=== PATIENT | male | born 1955 | race Hispanic/Latino ===

== ENCOUNTER 2017-09-11 16:49 | Inpatient (IN) | payer MEDICARE, MEDICAID ==
[2017-09-11 18:07] LABS: #Lymphocytes 1.6 thou/uL (1.20-3.40); #Monocytes 0.9 thou/uL (0.11-0.59); #Neutrophils 5.9 thou/uL (1.40-6.50); %Basophils 0.3 % (0.0-1.0); %Eosinophils 0.5 % (0.0-10.0); %Lymphocytes 18.6 % (21.0-51.0); %Neutrophils 69.7 % (42.0-75.0); Hemoglobin 11.3 g/dL (14.0-18.0); Mean Corpuscular HGB CONC 33.5 g/dL (32.0-36.0); Mean Corpuscular Hemoglobin 32.7 pg (27.0-31.0); Mean Corpuscular Volume 97.8 fl (80.0-94.0); Mean Platelet Volume 6.6 fL (7.4-10.4); Platelet Count 400 thou/uL (130-400); RBC Distribution Width 13.2 % (11.5-14.5); Red Blood Cell (RBC) Count 3.47 mill/uL (4.70-6.10); White Blood Cell (WBC) Count 8.5 thou/uL (4.8-10.8)
[2017-09-11 18:29] LABS: ALT (SGPT) 11 U/L (8-55); AST (SGOT) 14 U/L (5-34); Albumin 4.2 g/dL (3.5-5.0); Alkaline Phosphatase 106 U/L (40-150); Anion Gap 18 mmol/L (10-20); BUN (Urea Nitrogen) 59 mg/dL (8.4-25.7); Calc. Creatinine Clearance 0 mL/min (70-130); Calcium 10.1 mg/dL (7.8-10.44); Carbon Dioxide 22 mmol/L (22-29); Chloride 101 mmol/L (98-107); Estimated GFR-MDRD 12; Glucose 74 mg/dL (70-105); Potassium 4.4 mmol/L (3.5-5.1); Protein, Total 7.2 g/dL (6.0-8.3); Sodium 137 mmol/L (136-145)
[2017-09-11 18:34] LABS: Troponin I 0.024 ng/mL (< 0.028)
--- NOTE | 2017-09-11 20:19 | RAD ---
PORTABLE AP CHEST RADIOGRAPH: Date: 09-11-17 History: Patient recently diagnosed with the flu. Patient still feels sick and weak and has loss of a ppetite and congestion. Comparison: 03-13-17 FINDINGS: Most inferior aspect of each lateral costophrenic angle is excluded from view. The cardiac silhouette and pulmonary vasculature are within normal limits. Linear density at the left lung base may be rela sadaf to either minimal atelectasis or scarring. There is a mass like density in the medial left lung b ase. The prior CT examination on 05-17-17 demonstrated hiatal hernia in this location. Dorsal column s timulator leads overlie the thoracic spine. No interval change. IMPRESSION: 1. No acute cardiopulmonary process. 2. Minimal linear scarring versus atelectasis of the left lung base. 3. Hiatal hernia. POS: [facility]
[2017-09-11 21:09] LABS: CK (CPK) 153 U/L (30-200); Lipase 34 U/L (8-78)
[2017-09-11] MEDS ORDERED: Ondansetron HCl/PF 4 MG/2 ML Vial ONE (21:13)
--- NOTE | 2017-09-11 22:33 | CT ---
NONCONTRAST CT ABDOMEN AND PELVIS: Date: 09-11-17 Comparison: 05-17-17 History: Uremia and abdominal pain and vomiting. FINDINGS: Moderate sized hiatal hernia is partially visualized. There are linear parenchymal densities at the l xander bases which may be related to volume loss and/or scarring, incompletely evaluated on this exam. R e-demonstration of cystic hypodensity at the anterior aspect of the liver. No evidence of adrenal mas s. Re-demonstration of nonobstructive bilateral renal calculi. Urinary bladder is mildly distended. T here is a mural based hypodensity which could be on the basis of intramural fat deposition from prior inflammatory etiology. Stable malrotation of the kidneys bilaterally, incompletely assessed. Partial ly exophytic density of the posterior aspect of the right kidney is present, grossly stable. There ar e chronic diverticula. [place] fat containing rings are seen bilaterally. There is diffuse vascula r disease and osseous degenerative change. IMPRESSION: Nonobstructive bilateral nephrolithiasis. Evaluation otherwise limited on the basis of noncontrast kye simpson. POS: [facility]
[2017-09-12] MEDS ORDERED: Ondansetron ODT 4 MG TAB SL PRN (00:36)
[2017-09-12] MEDS ORDERED: Sodium Chloride 0.9% 1,000 ML IV SCH ×2 (00:36→09:15)
[2017-09-12] MEDS ORDERED: Acetaminophen 325 MG TAB PO PRN (00:36)
[2017-09-12] MEDS: Ondansetron HCl/PF 4 MG/2 ML Vial IVP PRN ×2 (01:10→09:43)
[2017-09-12 02:13] VITALS: BMI 35.1
[2017-09-12] MEDS ORDERED: FLU VACC QS2017-18 36 mo. & older 0.5 ML SYRINGE IM ONE (09:00)
[2017-09-12] MEDS ORDERED: hydrALAZINE 20 MG/ML VIAL SLOW IVP PRN (09:09)
[2017-09-12 09:36] LABS: Hemoglobin A1c 5.1 % (4.0-6.0)
--- NOTE | 2017-09-12 10:54 | ULT ---
RENAL ULTRASOUND: DATE: 09/12/17. HISTORY: Renal failure. TECHNIQUE: Multiplanar, phelps scale, sonographic imaging of the kidneys and urinary bladder obtained. FINDINGS: The right kidney measures 14.7 x 6.5 x 6.1 cm. Cortical thickness is 1.8 cm. No renal mass, hydrone phrosis, or renal stone noted on the right. The left kidney measures 12.1 x 7.3 x 6.0 cm, with a cortical thickness of 1.6 cm. There is an echog enic focus within the renal hilum on the left measuring up to approximately 9 mm, which may represent an intrarenal stone. No left renal mass or hydronephrosis. The urinary bladder appears grossly unr emarkable. IMPRESSION: No hydronephrosis seen on either side. Intrarenal stone noted on the left. Of note, CT performed demonstrates bilateral nephrolithiasis, underestimated on ultrasound. POS: [facility]
--- NOTE | 2017-09-12 11:08 | HP ---
CHIEF COMPLAINT: Nausea, vomiting, and weakness. HISTORY OF PRESENT ILLNESS: This is a 61-year-old pleasant gentleman who was discharged recently fro m our hospital, again comes in with nausea, vomiting, and weakness, which has worsened in the past da y. He says that he has not been able to eat for the past 4 days because of the nausea and vomiting a nd that is why he felt weak, his oral intake for food and liquids have been decreased as well. He al so reports decreased urine output and is having difficulty keeping fluids and food down. The patient admits to take Aleve and Mobic for his pain management. The patient comes in to the hospital for al l these reasons and initial evaluation showed a creatinine of 4.94. At the time of his discharge last time it was normal. The patient has been admitted for further evaluation and treatment of the naus ea, vomiting, and weakness and the high creatinine. PAST MEDICAL HISTORY: Significant for history of orthostatic hypotension, status post mechanical fal l, history of acute kidney injury, status post volume depletion, right proximal fibular fracture seco ndary to fall, obstructive sleep apnea, coronary artery disease, status post percutaneous coronary ar mika stent, morbid obesity, chronic pain syndrome with reflex sympathetic dystrophy, peripheral neuro kateryna, hyperlipidemia. PAST SURGICAL HISTORY: Significant for back surgery, kidney stone removal, status post right hip rep lacement. MEDICATIONS: Please see MAR. ALLERGIES: CODEINE, GABAPENTIN and IODINE. FAMILY HISTORY: Positive for coronary artery disease and diabetes. SOCIAL HISTORY: Resides in [place], [place]. No alcohol, tobacco or illicit drug use. Ambulates with a rolling walker, multiple falls per patient and . REVIEW OF SYSTEMS: Significant for nausea, vomiting, weakness, otherwise no fever, no chills, no hea dache, no . No cough, no chest pain, diarrhea, dysuria or polyuria. No memory or mood changes noted. PHYSICAL EXAMINATION: VITAL SIGNS: Blood pressure is 127/54, afebrile, pulse is 68, respirations 16. GENERAL: Patient is lying in bed, no apparent distress. HEENT: Atraumatic, normocephalic. Pupils equally round, react to light. Extraocular movements inta ct. Mucous membranes moist. NECK: Supple. No JVD. CHEST: Breath sounds. There are no rales or rhonchi. HEART: S1, S2. No murmurs or gallops. ABDOMEN: Soft, obese. EXTREMITIES: No cyanosis, clubbing, edema. Distal pulses present. NEUROLOGIC: Alert, awake, oriented. No cranial deficits. No sensorimotor deficits. LABORATORY DATA: Potassium is 4.4, creatinine is 4.94. WBC count is 8.5, hemoglobin is 11. Chest x -ray negative. CT scan of the abdomen shows nonobstructing nephrolithiasis bilaterally. ASSESSMENT AND PLAN: 1. Acute renal failure secondary to poor oral intake of fluids and simultaneous use of Lasix, lisino pril, hydrochlorothiazide, Aleve and Advil. Will stop all these medications and hydrate the patient. We will consult Dr. Benjamin and follow his recommendations. Do ultrasound and check a urinalysis and urine electrolytes. 2. Weakness, possibly secondary to side effect of Lyrica and poor oral intake and the uremia. We wi ll optimize the dose of the Lyrica. We will follow with Dr. Benjamin for further treatment of the uremia . 3. Nausea and vomiting, possibly secondary to gastritis. We will treat the patient with IV Protonix and transitioned to p.o. Protonix and give symptomatic treatment for the nausea. 4. History of coronary artery disease, status post stent, stable. 5. History of multiple falls secondary to orthostatic hypotension. We will monitor the patient's bl ood pressure this hospital stay. 6. Obstructive sleep apnea, stable. 7. Pain management. I will add fentanyl patch and Tylenol combination for the pain control. We duy l stop the Aleve and will advise him to go to pain management as an outpatient. 8. Morbid obesity. Advised him to lose weight. 9. Chronic pain syndrome with reflex sympathetic dystrophy. Continue to monitor the patient. 10. Peripheral neuropathy, stable. 11. Hyperlipidemia, stable. 12. Javier harding and SCDS for deep venous thrombosis prophylaxis. I will work with the bus info consultant on further caring for the patient.
[2017-09-12] MEDS: Sodium Chloride 0.9% 1,000 ML IV SCH (12:00)
[2017-09-12 12:15] LABS: Anion Gap 17 mmol/L (10-20); BUN (Urea Nitrogen) 51 mg/dL (8.4-25.7); Calc. Creatinine Clearance 36 mL/min (70-130); Calcium 9.5 mg/dL (7.8-10.44); Carbon Dioxide 23 mmol/L (22-29); Chloride 106 mmol/L (98-107); Estimated GFR-MDRD 18; Glucose 68 mg/dL (70-105); Sodium 142 mmol/L (136-145)
[2017-09-12] MEDS: Promethazine HCl 25 MG SUPP PR PRN ×2 (17:31→23:37)
[2017-09-12 17:49] LABS: Bilirubin Negative (Negative); Blood, Urine Negative (Negative); Clarity CLOUDY (Clear); Glucose, Urine (Dipstick) Negative (Negative); Leukocyte Moderate (Negative); Nitrite Negative (Negative); Protein, Urine (Dipstick) Negative (Neg-Trace); Specific Gravity, Urine 1.019 (1.002-1.036); Urobilinogen 0.2 mg/dL (0.2-1.0)
[2017-09-12 17:50] LABS: Bacteria/HPF 3+ HPF (None Seen); Hyaline Casts/LPF 0-3 HYALINE CAST LPF (0-3 Hyaline); Pathc Cast-AUWi Flag 0.13 (0-2.49); RBC/HPF 0-3 HPF (0-3); Squamous Epithelial None Seen HPF (0-3)
[2017-09-12 18:09] LABS: Creatinine, Urine 99.24 mg/dL (63-166); Potassium, Urine 16.3 mmol/L
[2017-09-12] MEDS: Metoprolol Tartrate 25 MG TAB PO SCH (20:24)
[2017-09-12] MEDS: Docusate 100 MG CAP PO SCH (20:24)
[2017-09-12] MEDS: Fentanyl 100 MCG/2 ML VIAL SLOW IVP PRN (23:37)
--- NOTE | 2017-09-12 23:49 | CON ---
DATE OF CONSULTATION: 09/12/2017 NEPHROLOGY CONSULTATION REASON FOR CONSULTATION: Elevated creatinine. HISTORY OF PRESENT ILLNESS: This is a 61-year-old gentleman with a past medical history significant for hypertension, diabetes mellitus, and history of coronary artery disease, who presented to the [facility] with history of nausea, vomiting, and weakness. The patient intake. The patient's creat inine peaked to 4.94. His last creatinine also was within normal limits, but . The patient den ies headache, numbness, tingling or weakness. Denies any nausea, vomiting or chest pain. PAST MEDICAL HISTORY: Significant for hypertension, mechanical fall, acute kidney injury, right prox imal femur fracture, orthostatic hypotension, coronary artery disease, stent, morbid obesity, periphe ral neuropathy, hyperlipidemia, history of hip replacement, knee surgery. CURRENT MEDICATIONS: List reviewed. ALLERGIES: Reviewed. FAMILY HISTORY: Negative for ESRD. SOCIAL HISTORY: No alcohol or drug use. REVIEW OF SYSTEMS: A 15-point review of systems was performed and negative except positives noted ab ove. GENERAL: Weakness. HEAD: Headache. NECK: No swelling or lumps. NOSE: No epistaxis or discharge. EYES: No diplopia or pain. RESPIRATORY: Dyspnea. CARDIOVASCULAR: Chest pain. GASTROINTESTINAL: Nausea. 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 MUSCULOSKELETAL: No joint pain. NEUROPSYCHIATIC SYSTEMS: No suicidal ideation. No ideation. SKIN: Denies any rash or ulcer. CONSTITUTIONAL: No fever or chills. PHYSICAL EXAMINATION: GENERAL: The patient is awake, alert. VITAL SIGNS: Afebrile, pulse 64, breathing at 16, blood pressure 118/71. GENERAL APPEARANCE AND MENTAL STATUS: Fair. HEAD/NECK: Normocephalic. Atraumatic. EYES: EOMI. No deformity. EARS: Clear. No ulcers. NOSE: Intact. No lesions. MOUTH: Clear. No discharge. THROAT: Clear. No exudate. LUNGS: Clear. No crackles. CARDIAC: S1, S2. No rub. ABDOMEN: Benign. BS+. GENITALIA/RECTUM: Cordon absent. BACK/EXTREMITIES: Edema 0+ Ulcer- NEUROLOGICAL: Alert and motor intact. SKIN: Rash- Bruise- LYMPHATICS: Edema- Ulcer- LABORATORY: Show creatinine was 4.9. ASSESSMENT AND RECOMMENDATIONS: 1. Acute kidney injury with chronic kidney disease, most likely due to dehydration. Continue hydrat ion. 2. Anemia, stable. 3. Medications based on glomerular filtration rate are appropriate. I would also order renal imagin g to look for renal size, shape, and symmetry, no urgent indication for dialysis.
[2017-09-13 04:48] LABS: #Eosinphils 0.1 thou/uL (0.0-0.7); #Lymphocytes 2.3 thou/uL (1.20-3.40); #Monocytes 1.1 thou/uL (0.11-0.59); #Neutrophils 5.1 thou/uL (1.40-6.50); %Basophils 0.3 % (0.0-1.0); %Eosinophils 1.1 % (0.0-10.0); %Lymphocytes 26.4 % (21.0-51.0); %Monocytes 12.3 % (0.0-10.0); Hemoglobin 12.3 g/dL (14.0-18.0); Mean Corpuscular HGB CONC 32.7 g/dL (32.0-36.0); Mean Corpuscular Hemoglobin 31.8 pg (27.0-31.0); Mean Corpuscular Volume 97.5 fl (80.0-94.0); Mean Platelet Volume 6.6 fL (7.4-10.4); Platelet Count 399 thou/uL (130-400); Red Blood Cell (RBC) Count 3.85 mill/uL (4.70-6.10); White Blood Cell (WBC) Count 8.6 thou/uL (4.8-10.8)
[2017-09-13] MEDS: Fentanyl 100 MCG/2 ML VIAL SLOW IVP PRN ×2 (05:02→11:19)
[2017-09-13 05:36] LABS: Albumin 4.2 g/dL (3.5-5.0); Anion Gap 18 mmol/L (10-20); BUN (Urea Nitrogen) 37 mg/dL (8.4-25.7); BUN/Creatinine Ratio 17.96; Calc. Creatinine Clearance 61 mL/min (70-130); Calcium 9.9 mg/dL (7.8-10.44); Carbon Dioxide 21 mmol/L (22-29); Chloride 109 mmol/L (98-107); Estimated GFR-MDRD 33; Glucose 87 mg/dL (70-105); Phosphorus 3.1 mg/dL (2.3-4.7); Potassium 4.2 mmol/L (3.5-5.1); Sodium 144 mmol/L (136-145)
[2017-09-13] MEDS: Modafinil 100 MG TAB PO SCH (09:04)
[2017-09-13] MEDS: Metoprolol Tartrate 25 MG TAB PO SCH ×2 (09:05→20:55)
[2017-09-13] MEDS: Pregabalin 25 MG CAP PO SCH (09:06)
[2017-09-13] MEDS: Clopidogrel Bisulfate 75 MG TAB PO SCH (09:06)
[2017-09-13] MEDS: Sodium Chloride 0.9% 1,000 ML IV SCH (09:08)
[2017-09-13] MEDS: Docusate 100 MG CAP PO SCH ×2 (09:08→20:54)
--- NOTE | 2017-09-13 11:34 | PRG ---
DATE OF SERVICE: 09/13/2017 SUBJECTIVE: This is a 61-year-old gentleman being seen for acute kidney injury with improving creati nine. The patient denies any nausea, vomiting, or chest pain. PHYSICAL EXAMINATION: GENERAL: Patient is awake, alert. VITAL SIGNS: Afebrile, pulse 61, breathing at 16, blood pressure 132/71. OBJECTIVE: See above. Awake, alert, in no acute distress. GENERAL APPEARANCE AND MENTAL STATUS: Fair. HEAD/NECK: Normocephalic. Atraumatic. EYES: EOMI. No deformity. EARS: Clear. No ulcers. NOSE: Intact. No lesions. MOUTH: Clear. No discharge. THROAT: Clear. No exudate. LUNGS: Clear. No crackles. CARDIAC: S1, S2. No rub. ABDOMEN: Benign. BS+. GENITALIA/RECTUM: Cordon absent. BACK/EXTREMITIES: Edema 0+ Ulcer- NEUROLOGICAL: Alert and motor intact. SKIN: Rash- Bruise- LYMPHATICS: Edema- Ulcer- LABORATORY: Hemoglobin 12.5. Creatinine 2.06, bicarbonate 20. ASSESSMENT AND RECOMMENDATIONS: 1. Acute kidney injury, improved. 2. Hypertension, stable. 3. Anemia, stable. 4. Bilateral nephrolithiasis with very elevated uric acid. I would recommend adequate hydration. 5. Hypouricemia, would recommend starting Allopurinol 100 mg daily. 6. Kidney stones. We will order a 24-hour urine calcium.
--- NOTE | 2017-09-13 14:20 | PDOC.PN ---
- Subjective Encounter Start Date: 09/13/17 Encounter Start Time: 12:20 -: old records requested/rev Pt seen and examined, chart reviewed in its entirety, this is my first visit with this patient. Pt admitted for ARF, abd/flank pain, N/V. followed by renal, case discussed with Dr Benjamin face to face. Pt had CT with bilateral nephrolithisasis, but no hydro, rneal u/s demonstrated left infrarenal stone, no hydro. pt feel sbetter today after rehydration. admits to chronic pain, increasd naproxen usage and intractable n/V. suspect NSAIDS and dehydration contributed to CARON. Cr down to 2.08 today. Uric acid elevated, pt denes every having a gout attack or tophus. Admits to neck muscle spasm, Chronic BLE pain, kept asking to continue fentanyl. 10 point rOS performed and neg for all systems except as above - Objective Resuscitation Status: FULL MAR Reviewed: Yes Vital Signs & Weight: Vital Signs (12 hours) Temp Pulse Resp BP Pulse Ox 09/13/17 08:00 98.3 F 61 20 136/71 98 Weight Admit Weight 251 lb 14.4 oz Weight 248 lb 9.6 oz I&O: 09/12/17 09/13/17 09/14/17 06:59 06:59 06:59 Intake Total 455 Output Total 250 Balance 205 Result Diagrams: 09/13/17 04:34 09/13/17 04:34 Radiology Reviewed by me: Yes EKG Reviewed by me: Yes Phys Exam - Physical Examination Constitutional: NAD HEENT: PERRLA, moist MMs, sclera anicteric, oral pharynx no lesions Neck: no nodes, no JVD, supple, full ROM neck muscles,, paraspinous, tense and tender Respiratory: no wheezing, no rales, no rhonchi, clear to auscultation bilateral Cardiovascular: RRR, no significant murmur, no rub Gastrointestinal: soft, non-tender, no distention, positive bowel sounds Musculoskeletal: no edema, pulses present Neurological: non-focal, normal sensation, moves all 4 limbs Lymphatic: no nodes Psychiatric: normal affect, A&O x 3 Skin: no rash, normal turgor, cap refill <2 seconds Dx/Plan (1) Cervical paraspinal muscle spasm Code(s): M62.838 - OTHER MUSCLE SPASM Status: Acute Comment: will add in Zanaflex (2) Peripheral neuropathy Code(s): G62.9 - POLYNEUROPATHY, UNSPECIFIED Status: Chronic Qualifiers: Peripheral neuropathy type: polyneuropathy, unspecified Qualified Code(s): G62.9 - Polyneuropathy, unspecified Comment: prn pain meds, lyrica restarted (3) Hyperuricemia without signs inflammatory arthritis/tophaceous disease Code(s): E79.0 - HYPERURICEMIA W/O SIGNS OF INFLAM ARTHRIT AND TOPHACEOUS DIS Status: Acute Comment: over 12.0 for alst 2 days, no history of acute gout (4) Acute kidney failure Status: Acute Qualifiers: Acute renal failure type: with acute tubular necrosis Qualified Code(s): N17.0 - Acute kidney failure with tubular necrosis Comment: Resolved with hydration, saline lock IVF's, avoid nephrotoxic meds and contrast media, repeat creatinine in am (5) Dehydration Code(s): E86.0 - DEHYDRATION Status: Resolved Comment: Resolved, see #1 above (6) Asthma Code(s): J45.909 - UNSPECIFIED ASTHMA, UNCOMPLICATED Status: Chronic Qualifiers: Asthma severity: unspecified severity Asthma persistence: unspecified Asthma complication type: unspecified Qualified Code(s): J45.909 - Unspecified asthma, uncomplicated (7) CAD (coronary artery disease) Code(s): I25.10 - ATHSCL HEART DISEASE OF [place] CORONARY ARTERY W/O ANG PCTRS Status: Chronic Qualifiers: Coronary Disease-Associated Artery/Lesion type: [place] artery [place] vs. transplanted heart: [place] heart Associated angina: without angina Qualified Code(s): I25.10 - Atherosclerotic heart disease of [place] coronary artery without angina pectoris (8) Diverticulosis of colon Code(s): K57.30 - DVRTCLOS OF LG INT W/O PERFORATION OR ABSCESS W/O BLEEDING Status: Chronic Qualifiers: Diverticulosis bleeding: diverticulosis without bleeding Qualified Code(s) : K57.30 - Diverticulosis of large intestine without perforation or abscess without bleeding (9) GERD (gastroesophageal reflux disease) Code(s): K21.9 - GASTRO-ESOPHAGEAL REFLUX DISEASE WITHOUT ESOPHAGITIS Status: Chronic Qualifiers: Esophagitis presence: without esophagitis Qualified Code(s): K21.9 - Gastro -esophageal reflux disease without esophagitis (10) Hiatal hernia Code(s): K44.9 - DIAPHRAGMATIC HERNIA WITHOUT OBSTRUCTION OR GANGRENE Status: Chronic - Plan cont current plan of care, continue antibiotics, PT/OT, out of bed/ambulate * .
[2017-09-13] MEDS ORDERED: Tamsulosin HCl 0.4 MG CAP PO SCH ×2 (14:45→21:00)
[2017-09-13] MEDS: HYDROcodone/Acetaminophen 5/325 mg Tablet PO PRN ×2 (15:45→20:57)
[2017-09-13] MEDS ORDERED: Mometasone Furoate 120 PUFF 220 MCG INH SCH (18:30)
[2017-09-13] MEDS ORDERED: Pantoprazole 40 MG VIAL IVP SCH (21:00)
[2017-09-14] MEDS: Sodium Chloride 0.9% 1,000 ML IV SCH (04:14)
[2017-09-14 05:08] LABS: #Eosinphils 0.2 thou/uL (0.0-0.7); #Lymphocytes 1.7 thou/uL (1.20-3.40); #Monocytes 0.7 thou/uL (0.11-0.59); #Neutrophils 3.8 thou/uL (1.40-6.50); %Basophils 0.1 % (0.0-1.0); %Eosinophils 2.6 % (0.0-10.0); %Lymphocytes 27.3 % (21.0-51.0); %Monocytes 10.6 % (0.0-10.0); %Neutrophils 59.5 % (42.0-75.0); Hemoglobin 11.2 g/dL (14.0-18.0); Mean Corpuscular HGB CONC 32.6 g/dL (32.0-36.0); Mean Corpuscular Hemoglobin 32.1 pg (27.0-31.0); Mean Corpuscular Volume 98.4 fl (80.0-94.0); Mean Platelet Volume 7.4 fL (7.4-10.4); Platelet Count 385 thou/uL (130-400); RBC Distribution Width 13.1 % (11.5-14.5); White Blood Cell (WBC) Count 6.4 thou/uL (4.8-10.8)
[2017-09-14 05:22] LABS: Anion Gap 13 mmol/L (10-20); BUN (Urea Nitrogen) 21 mg/dL (8.4-25.7); Calc. Creatinine Clearance 114 mL/min (70-130); Calcium 9.4 mg/dL (7.8-10.44); Carbon Dioxide 23 mmol/L (22-29); Chloride 108 mmol/L (98-107); Estimated GFR-MDRD 68; Glucose 88 mg/dL (70-105); Magnesium 1.8 mg/dL (1.6-2.6); Sodium 140 mmol/L (136-145); Uric Acid 7.5 mg/dL (3.5-7.2)
[2017-09-14] MEDS: HYDROcodone/Acetaminophen 5/325 mg Tablet PO PRN ×2 (05:43→12:54)
[2017-09-14] MEDS ORDERED: Allopurinol 100 MG TAB PO SCH (09:00)
[2017-09-14] MEDS: Docusate 100 MG CAP PO SCH (09:36)
[2017-09-14] MEDS: Pregabalin 25 MG CAP PO SCH (09:37)
[2017-09-14] MEDS: Modafinil 100 MG TAB PO SCH (09:39)
[2017-09-14] MEDS: Metoprolol Tartrate 25 MG TAB PO SCH (09:40)
[2017-09-14] MEDS: Clopidogrel Bisulfate 75 MG TAB PO SCH (09:40)
[2017-09-14 12:09] VITALS: BP 114/65; TEMP 97.7
--- NOTE | 2017-09-14 12:13 | DIS ---
DATE OF ADMISSION: 09/12/2017 DATE OF DISCHARGE: 09/14/2017 PRIMARY CARE PHYSICIAN: Listed as Dr. Lyndon Shaver. DISCHARGE DIAGNOSES: 1. Hyperuricemia. 2. Acute kidney injury on chronic kidney disease, likely stage 3 chronic kidney disease. 3. Cervical paraspinal muscle spasms. 4. Chronic peripheral neuropathy. 5. Dehydration. 6. Asthma, uncomplicated, chronic and intermittent. 7. Coronary artery disease, without angina. 8. Diverticulosis without abscess or bleeding. 9. Gastroesophageal reflux disease. 10. History of hiatal hernia. CONSULTATION: Dr. Shamar Benjamin with Nephrology, 09/12/2017. PROCEDURES: None. HISTORY AND PHYSICAL/HOSPITAL COURSE: Mr. Shepherd is a pleasant 61-year-old male with the above history who presented to the emergency department on 09/11/2017 p.m. for evaluation of tejinder sea, vomiting, and weakness. He had been recently here for hospital stay and discharged. He came ba ck to the emergency department with nausea, vomiting, and weakness that worsened over the last day. He said, he has not been able to eat for about 4 days prior to presentation, because of nausea and vo miting and felt weak. He has been taking increased Aleve and Mobic for pain management of his peripheral neuropathy. Evaluation showed a creatinine of 4.94 and has been subsequently normal in the previous hospital stay . We were consulted for admission for dehydration, acute renal failure. The patient was seen and examined by Dr. Montiel. Nephrotoxic medicines were held and the patie nt was hydrated. Dr. Benjamin was consulted. A renal ultrasound and urinalysis and urine electrolytes w ere ordered. He was continued on p.o. Protonix after a dose of IV in the emergency department and or thostatic vital signs were ordered. Overnight, 09/12 to 09/13, the patient improved. I took over th e case. He was feeling better and creatinine was improved. Dr. Benjamin felt this was prerenal azotemia on top of acute nephrotoxicity of medications. A CT showed bilateral nephrolithiasis without hydron ephrosis and renal ultrasound showed along the left intrarenal stone. After the discussion, we decid ed to go ahead and start him on allopurinol and Flomax. His tramadol was stopped. He was changed ov er to hydrocodone and for pain control, we started on low dose Lyrica 25 mg a day. By 09/14/2017, the patient was feeling much better. His creatinine was down to 1.10 again with basel ine had been 0.7-0.9. Electrolytes remained otherwise normal. Uric acid down from 12.4-7.5 and 24-h our urine collection was completed at the time of discharge at 2:00 p.m. and was awaiting evaluation. Patient was stable for discharge with outpatient followup. On physical exam, the patient was seen and examined on the day of discharge. Discharge plan and disp osition was discussed with the patient [id number] at the bedside. DISCHARGE MEDICATIONS: 1. Albuterol sulfate MDI 2 puffs inhaled every 4 hours as needed. 2. Allopurinol 100 mg p.o. daily, prescription for 30 days with 2 refills sent. 3. Aspirin 325 mg daily. 4. Lipitor 40 mg p.o. at bedtime. 5. Vitamin D3 5000 units p.o. daily. 6. Citalopram 40 mg daily. 7. Plavix 75 mg daily. 8. Fluticasone 50 mcg inhaled daily, (Flovent Diskus). 9. Isosorbide mononitrate 60 mg p.o. daily. 10. Metoprolol tartrate 12.5 mg p.o. b.i.d. 11. Modafinil 200 mg p.o. daily. 12. Dicyclomine 20 mg p.o. q.i.d. 13. Flaxseed oil 1000 mg p.o. daily. 14. Lasix 40 mg daily to be held. 15. Hydrocodone/acetaminophen 5/325 one p.o. q.4 hours, prescription for 30 tablets, no refills sent . 16. Iron (Ferrex 150 Forte) one cap p.o. daily. 17. Singulair 10 mg daily to resume. 18. Naproxen discontinued. 19. Bethel 3 one capsule daily 20. Omeprazole 20 mg daily. 21. Zofran 8 mg p.o. q.6 hours p.r.n. nausea and vomiting, to continue. 22. Potassium chloride 20 mEq daily. 23. Lyrica 25 mg p.o. daily, prescription for 30 tablets with 2 refills sent. 24. Ranexa 1000 mg p.o. b.i.d. to resume. 25. Ropinirole 4 mg p.o. q.p.m. to resume. 26. Flomax 0.4 mg p.o. at bedtime, prescription for 30 tabs with 2 refills sent. DISCHARGE DIET: Renal, heart healthy, diabetic diet. DISCHARGE ACTIVITY: Per cardiopulmonary limits. FOLLOWUP APPOINTMENTS: 1. Primary care physician, Dr. Shaver in a week. 2. Dr. Benjamin with Nephrology, per his clinic schedule. DISCHARGE CONDITION: Stable. DISPOSITION: To be discharged home via private vehicle.
--- NOTE | 2017-09-14 13:51 | PRG ---
DATE OF SERVICE: 09/14/2017 SUBJECTIVE: This is a 61-year-old gentleman being seen for acute kidney injury. The patient denies any nausea, vomiting, or chest pain. PHYSICAL EXAMINATION: GENERAL: Patient is awake, alert. VITAL SIGNS: Afebrile, pulse 67, breathing at 16, blood pressure 114/65. OBJECTIVE: See above. Awake, alert, in no acute distress. GENERAL APPEARANCE AND MENTAL STATUS: Fair. HEAD/NECK: Normocephalic. Atraumatic. EYES: EOMI. No deformity. EARS: Clear. No ulcers. NOSE: Intact. No lesions. MOUTH: Clear. No discharge. THROAT: Clear. No exudate. LUNGS: Clear. No crackles. CARDIAC: S1, S2. No rub. ABDOMEN: Benign. BS+. GENITALIA/RECTUM: Cordon absent. BACK/EXTREMITIES: Edema 0+ Ulcer- NEUROLOGICAL: Alert and motor intact. SKIN: Rash- Bruise- LYMPHATICS: Edema- Ulcer- LABORATORY: Hemoglobin 11.2, creatinine 1.1. RECOMMENDATIONS: 1. Acute kidney injury. 2. Hypertension, stable. 3. Hypouricemia, continue allopurinol. 4. Secondary hyperparathyroidism causing kidney stone, I would recommend Sensipar and follow up with Endocrinology. 5. Anemia, stable. 6. Medications based on GFR are appropriate. 24-hour urine calcium is pending.
== END 2017-09-14 15:09 | disposition home or self-care (01) | DRG 684 ==
LOC: ERS 16:49 → T4-B 09-12 00:35
PROVIDERS: ADMIT Family Medicine; ATTEND Family Medicine
DX: N17.9 Acute kidney failure, unspecified (principal); E66.01 Morbid (severe) obesity due to excess calories; G62.9 Polyneuropathy, unspecified; N18.3 Chronic kidney disease, stage 3 (moderate); M62.838 Other muscle spasm; E86.0 Dehydration; J45.909 Unspecified asthma, uncomplicated; K57.30 Diverticulosis of large intestine without perforation or abscess without bleeding; K21.9 Gastro-esophageal reflux disease without esophagitis; G47.33 Obstructive sleep apnea (adult) (pediatric); I25.10 Atherosclerotic heart disease of native coronary artery without angina pectoris; I12.9 Hypertensive chronic kidney disease with stage 1 through stage 4 chronic kidney disease, or unspecified chronic kidney disease; G89.4 Chronic pain syndrome; E78.5 Hyperlipidemia, unspecified; N20.0 Calculus of kidney; E79.0 Hyperuricemia without signs of inflammatory arthritis and tophaceous disease; J45.20 Mild intermittent asthma, uncomplicated; Z68.34 Body mass index [BMI] 34.0-34.9, adult; Z88.5 Allergy status to narcotic agent; Z88.8 Allergy status to other drugs, medicaments and biological substances; Z91.041 Radiographic dye allergy status; Z79.82 Long term (current) use of aspirin; Z79.899 Other long term (current) drug therapy; Z95.5 Presence of coronary angioplasty implant and graft; Z96.641 Presence of right artificial hip joint
CPT/HCPCS: 36415; 71045; 74176; 76770; 80048; 80053; 80069; 81001; 82306; 82340; 82553; 82570; 83036; 83605; 83690; 83735; 83880; 83970; 84133; 84156; 84300; 84484; 84550; 85025; 93005; 94664; 96374; A4216; C9113; J2405; J3010

== ENCOUNTER 2018-06-28 09:57 | Outpatient (CLI) | payer MEDICARE, MEDICAID ==
--- NOTE | 2018-06-28 12:01 | RAD ---
PA AND LATERAL VIEWS CHEST: Date: 06/28/18 HISTORY: Hypoxia. Dyspnea. FINDINGS/IMPRESSION: Comparison made with exam of 09/11/17. The heart size is borderline. Hiatal hernia is again noted. No lobar consolidation, pneumothoraces, f rank pulmonary edema, or pleural effusions are seen. There are degenerative changes in the spine. Bjorn celso column stimulator lead are seen in the thoracic spine. There is suggestion of a 9.0 mm nodule in the left lung base. Further evaluation with CT scan of the chest is recommended. CODE T. POS: [facility]
== END 2018-06-28 09:58 | disposition home or self-care (01) ==
LOC: BICRAD 09:57
PROVIDERS: ATTEND Internal Medicine
DX: R06.00 Dyspnea, unspecified (principal); R09.02 Hypoxemia; M47.899 Other spondylosis, site unspecified; K44.9 Diaphragmatic hernia without obstruction or gangrene
CPT/HCPCS: 71046

== ENCOUNTER 2018-07-09 08:34 | Outpatient (CLI) | payer MEDICARE, MEDICAID ==
--- NOTE | 2018-07-09 11:11 | CT ---
CHEST CT SCAN WITHOUT IV CONTRAST: HISTORY: Followup lung nodule. Followup hypoxia and dyspnea. There is no mediastinal mass or adenopathy. Extensive 3-vessel coronary artery calcific disease. Ri ght hemidiaphragm elevation with some pleural thickening and some pleural based parenchymal changes, evidence for subsegmental atelectasis or chronic change. In the left base, there are also some pleur al-based linear and nodular parenchymal changes. The nodular area on the prior plain film examinatio n of 06/28/2018 appears to be some pleural-based linear nodular parenchymal change rather than a discr ete pulmonary nodule. Moderate-sized hiatal hernia. Nonobstructing right renal calculus. Left lobe of the liver cyst. IMPRESSION: Bibasilar minimal pleural thickening and pleural-based parenchymal changes with some minimal nodulari ty. I feel that this accounts for the nodular density seen on the prior plain film examination and i s no discrete pulmonary nodule. Moderate-sized hiatal hernia. Extensive 3-vessel coronary artery ca lcific disease. Small right renal calculus. Depending upon concern, a followup CT scan in 2-3 month s to document clearing or stability should be considered. POS: [facility]
== END 2018-07-09 08:35 | disposition home or self-care (01) ==
LOC: CT 08:34
PROVIDERS: ATTEND Internal Medicine
DX: R91.8 Other nonspecific abnormal finding of lung field (principal); J92.9 Pleural plaque without asbestos; I25.10 Atherosclerotic heart disease of native coronary artery without angina pectoris; N20.0 Calculus of kidney; K44.9 Diaphragmatic hernia without obstruction or gangrene
CPT/HCPCS: 71250

== ENCOUNTER 2019-01-25 07:39 | Observation (INO) | payer MEDICARE, MEDICAID ==
[2019-01-25] MEDS ORDERED: Pantoprazole 40 MG VIAL ONE (07:58)
[2019-01-25 08:39] LABS: #Eosinphils 0.2 thou/uL (0.0-0.7); #Monocytes 0.4 thou/uL (0.11-0.59); #Neutrophils 4.2 thou/uL (1.40-6.50); %Basophils 0.1 % (0.0-1.0); %Eosinophils 2.7 % (0.0-10.0); %Lymphocytes 17.5 % (21.0-51.0); %Monocytes 7.2 % (0.0-10.0); %Neutrophils 72.5 % (42.0-75.0); Hemoglobin 10.9 g/dL (14.0-18.0); Mean Corpuscular HGB CONC 35.2 g/dL (32.0-36.0); Mean Corpuscular Hemoglobin 34.8 pg (27.0-31.0); Mean Corpuscular Volume 98.9 fL (78.0-98.0); Mean Platelet Volume 6.9 fL (7.4-10.4); Platelet Count 276 thou/uL (130-400); RBC Distribution Width 12.3 % (11.5-14.5); Red Blood Cell (RBC) Count 3.12 mill/uL (4.70-6.10); White Blood Cell (WBC) Count 5.8 thou/uL (4.8-10.8)
[2019-01-25 08:47] LABS: Bilirubin Negative (Negative); Blood, Urine Negative (Negative); Clarity CLEAR (Clear); Glucose, Urine (Dipstick) Negative (Negative); Leukocyte Negative (Negative); Nitrite Negative (Negative); Protein, Urine (Dipstick) Negative (Neg-Trace); Specific Gravity, Urine 1.008 (1.002-1.036); Urobilinogen 0.2 mg/dL (0.2-1.0); pH, Urine 6.5 (5.0-9.0)
[2019-01-25 08:48] LABS: PTT 31.8 SEC (22.9-36.1); Prothrombin Time 13.5 SEC (12.0-14.7)
[2019-01-25 09:17] LABS: ALT (SGPT) 22 U/L (8-55); AST (SGOT) 16 U/L (5-34); Albumin 3.7 g/dL (3.4-4.8); Alkaline Phosphatase 94 U/L (40-150); Anion Gap 11 mmol/L (10-20); BUN (Urea Nitrogen) 15 mg/dL (8.4-25.7); Bilirubin, Total 0.6 mg/dL (0.2-1.2); CK (CPK) 109 U/L (30-200); Calc. Creatinine Clearance 0 mL/min (70-130); Calcium 9.1 mg/dL (7.8-10.44); Carbon Dioxide 27 mmol/L (23-31); Chloride 103 mmol/L (98-107); Estimated GFR-MDRD Greater than 90; Glucose 89 mg/dL (80-115); Lipase 12 U/L (8-78); Potassium 4.3 mmol/L (3.5-5.1); Protein, Total 5.7 g/dL (5.8-8.1); Sodium 137 mmol/L (136-145)
[2019-01-25] MEDS ORDERED: Morphine 4 MG/ML VIAL ONE (09:38)
--- NOTE | 2019-01-25 10:44 | HP ---
PRIMARY CARE PHYSICIAN: Dr. Lyndon Shaver. REASON FOR ADMISSION: Rectal bleed. HISTORY OF PRESENT ILLNESS: A 63-year-old male, who has multiple medical problems, who presented to emergency room today with complaint of lower GI bleed. The patient reports that on Monday, he was noticing right-sided lower abdominal pain, and he had bowel movement, which was mixed with blood. Subsequently, on next day, he was having pain radiating to left side and entire lower abdominal was hurting. At the same time, the patient was having several loose bowel movements, which were associated with bright red blood per rectum. Per the patient, he had 6 to 7 times of bowel movement on , as well as today, he had 6 to 7 times of bloody bowel movement. Initially on , he thought that may be related with whatever he ate, but he stopped eating sauce, and even after that, he was having bright red blood per rectum, and that is why he was alarmed and decided to come to emergency room for evaluation. The patient has chronic right knee infection, and that is why he is taking amoxicillin, but he never had diarrhea before. He denies any weight loss. He denies any rectal tenesmus. He denies any fever or chills. He denies any nausea or vomiting. He denies any abdominal distention. He was feeling bloated, but he denies any constipation. The patient reports that he had several endoscopies in past, and he was planned for upper and lower endoscopy next week. The patient also has hiatal hernia, and he has difficulty swallowing, and that is why he is planned for upper endoscopy. He denies any chest pain, palpitation, shortness of breath, orthopnea, PND, or syncopal episode. The patient reports that because of all this bleeding and diarrhea, he is feeling generalized weak. REVIEW OF SYSTEMS: CONSTITUTIONAL: Negative for weight loss or gain, ability to conduct usual activities. SKIN: Negative for rash, itching. EYES: Negative for double vision, pain. ENT/MOUTH: Negative for nose bleeding, neck stiffness, pain, tenderness. CARDIOVASCULAR: Negative for palpitations, dyspnea on exertion, orthopnea. RESPIRATORY: Negative for shortness of breath, wheezing, cough, hemoptysis, fever or night sweats. GASTROINTESTINAL: Negative for poor appetite, abdominal pain, heartburn, nausea, vomiting, constipation, or diarrhea. GENITOURINARY: Negative for urgency, frequency, dysuria, nocturia. MUSCULOSKELETAL: Negative for pain, swelling. NEUROLOGIC/PSYCHIATRIC: Negative for anxiety, depression. ALLERGY/IMMUNOLOGIC: Negative for skin rash, bleeding tendency. See my HPI for pertinent positives and negatives. All other review of systems reviewed and negative except as mentioned in HPI. PAST MEDICAL HISTORY: Morbid obesity, chronic pain syndrome from reflex sympathetic dystrophy, peripheral neuropathy, hypertension, dyslipidemia, coronary artery disease with history of stent placement, obstructive sleep apnea, history of diverticulitis, history of right hip nerve stimulator, history of nephrolithiasis, and history of TIA. PAST SURGICAL HISTORY: Right knee surgery, lumbar spine surgery, shoulder surgery, lithotripsy, and right hip stimulator placement. PAST PSYCHIATRIC HISTORY: Reviewed and negative. SOCIAL HISTORY: The patient is , lives at home. He denies any tobacco, alcohol, or illicit drug abuse. FAMILY HISTORY: Positive for coronary artery disease and diabetes among several family members. ALLERGIES: 1. CODEINE. 2. GABAPENTIN. 3. IODINE. CURRENT HOME MEDICATIONS: 1. Aspirin 325 mg p.o. daily. 2. Lipitor 40 mg p.o. daily. 3. Plavix 75 mg p.o. daily. 4. Lasix 40 mg daily. 5. Lyrica 150 mg twice daily. 6. Singulair 10 mg daily. 7. ProAir HFA 2 puffs q.6 hourly p.r.n. 8. Ranexa 1000 mg twice daily. 9. Ropinirole 4 mg before bedtime. 10. Metoprolol tartrate 12.5 mg twice daily. 11. Imdur 60 mg p.o. daily. 12. Potassium chloride 20 mEq p.o. daily. 13. Protonix 40 mg daily. 14. Lisinopril 10 mg daily. 15. Metolazone 5 mg 3 times a week. 16. Allopurinol 100 mg daily. 17. Amoxacillin 250 mg daily. 18. Flomax 0.4 mg p.o. daily. 19. Vitamin D with calcium 1 tablet daily. 20. Celexa 40 mg daily. 21. Ferrous sulfate 150 mg p.o. daily. EMERGENCY ROOM COURSE: The patient received IV fluid and Protonix. PHYSICAL EXAMINATION: VITAL SIGNS: Currently, blood pressure 140/48, pulse 56, respiratory rate 18, temperature 98.0, saturation 95% on room air. Weight 124 kg. GENERAL: The patient is currently alert and awake. No obvious acute distress. HEENT: Head, normocephalic and atraumatic. Eyes; pupils round and reactive to light. Extraocular muscle intact. ENT; oropharynx within normal limits. Moist mucous membranes. No oral lesion. No pharyngeal erythema. No exudate. NECK: Supple. No thyromegaly. No carotid bruit. No jugular venous distention LUNGS: Clear to auscultation without any rhonchi or rales. CARDIAC: S1 and S2, regular. No murmur. No gallop. No rub. ABDOMEN: Soft. Bowel sounds present. Lower abdominal discomfort noted. No peritoneal sign. No guarding. No rigidity. No rebound. BACK: Unremarkable. No CVA tenderness. EXTREMITIES: Upper extremities; passive movement of all joints is normal. Lower extremities; no edema. Good distal pulsation. SKIN: No skin rash. HEMATOLOGICAL: No lymphadenopathy. PSYCHIATRIC: Normal affect. NEUROLOGIC: Nonfocal examination. SIGNIFICANT LABORATORY DATA: CBC: WBC 5.8, hemoglobin 10.9, platelet 276. INR 1.0. BMP: Sodium 137, potassium 4.3, chloride 103, carbon dioxide 27, BUN 15, creatinine 0.74, glucose 89, calcium 9.1. LFT: AST 16, ALT 22, alkaline phosphatase 94, albumin 3.7, lipase 12. Troponin I less than 0.010. Urinalysis, normal. ASSESSMENT AND PLAN: 1. Lower gastrointestinal bleed. The patient has lower abdominal discomfort with several times of loose bowel movement with blood. I am clinically suspecting diverticular bleed. As the patient is on chronic amoxicillin therapy, Clostridium difficile needs to be excluded, but less likely given CBC is normal. The patient does have a drop in hemoglobin from 13 to 10, and he is not significantly symptomatic at this point, but he will need H and H monitoring. If his hemoglobin drops below 7, then he will need transfusion. At this point, I will keep him on clear liquid diet. We will consult intelligence agent for their evaluation with endoscopy if needed. Other possibilities like colorectal cancer, colon cancer, hemorrhoids are less likely based on clinical presentation. 2. Chronic dysphagia with hiatal hernia. The patient is planned for upper endoscopy, that can be done during this admission. The patient may need esophageal dilatation. 3. Morbid obesity. Dietary education given. Weight loss education given. 4. Asthma/chronic obstructive pulmonary disease. We will continue ProAir HFA 2 puffs q.6 hourly p.r.n., Flonase nasal spray daily. 5. Benign enlargement of prostate. We will continue Flomax 0.4 mg p.o. daily. 6. Coronary artery disease with history of stent. At this point, because of bleeding, we will hold on aspirin and Plavix therapy, but after procedure, if bleeding stops, then we will resume aspirin and Plavix. We will continue other medications including Lipitor, Imdur, metoprolol, and Ranexa. 7. Peripheral neuropathy. We will continue Lyrica as per home dosage. 8. Restless legs syndrome. We will continue ropinirole as per home dosage at bedtime. 9. Hiatal hernia. We will continue Protonix 40 mg p.o. daily. 10. Obstructive sleep apnea. The patient will continue his CPAP machine while in the hospital if needed. 11. Chronic low back pain. We will continue Celexa as per home dosage. 12. Gout. We will continue allopurinol 100 mg p.o. daily. 13. Deep venous thrombosis prophylaxis. SCD boots. No Lovenox because of gastrointestinal bleed. 14. Gastrointestinal prophylaxis. Protonix 40 mg p.o. daily. CODE STATUS: The patient is full code. The patient's is surrogate decision maker. DISPOSITION PLAN: Based on clinical course. Plan of care discussed with the patient and his at bedside in the emergency room. Job ID: [id number]
[2019-01-25] MEDS ORDERED: Bisacodyl 5 MG TAB PO PRN (10:49)
[2019-01-25] MEDS ORDERED: Zolpidem Tartrate 5 MG TAB PO PRN (10:49)
[2019-01-25] MEDS ORDERED: Ondansetron PF 4 MG/2 ML Vial IVP PRN (10:49)
[2019-01-25] MEDS ORDERED: Bisacodyl 10 MG SUPP PR PRN (10:49)
[2019-01-25] MEDS ORDERED: Acetaminophen 325 MG TAB PO PRN (10:49)
[2019-01-25] MEDS ORDERED: Ondansetron ODT 4 MG TAB PO PRN (10:49)
[2019-01-25] MEDS ORDERED: Calcium Carbonate 500 MG ChewTAB PO PRN (10:49)
[2019-01-25 11:50] VITALS: BMI 38.0
[2019-01-25 12:22] LABS: Hemoglobin 10.1 g/dL (14.0-18.0)
[2019-01-25] MEDS ORDERED: PROVENTIL INHALER 6.7 G (200 INHALATIONS) INH PRN (13:09)
[2019-01-25] MEDS ORDERED: Cyclobenzaprine 10 MG TAB PO PRN (13:09)
[2019-01-25] MEDS: Morphine 2 MG/ML SYRINGE SLOW IVP PRN ×3 (13:35→21:40)
[2019-01-25] MEDS: AMOXicillin 250 MG CAP PO SCH (14:43)
[2019-01-25] MEDS: Potassium Chloride 20 MEQ TAB PO SCH (16:18)
[2019-01-25] MEDS: Meclizine HCl 25 MG TAB PO SCH ×2 (16:18→20:56)
[2019-01-25] MEDS ORDERED: GoLYTELY 4,000 ml Bottle PO SCH (18:00)
[2019-01-25] MEDS: Pregabalin 75 MG CAP PO SCH (20:56)
[2019-01-25] MEDS: Furosemide 20 MG TAB PO SCH (20:56)
[2019-01-25] MEDS ORDERED: Metoprolol Tartrate 25 MG TAB PO SCH (21:00)
[2019-01-25] MEDS ORDERED: Atorvastatin Calcium 40 MG TAB PO SCH (21:00)
[2019-01-25] MEDS ORDERED: Senokot S 8.6-50 MG TAB PO PRN (21:00)
[2019-01-25] MEDS ORDERED: Tamsulosin HCl 0.4 MG CAP PO SCH (21:00)
[2019-01-25] MEDS ORDERED: ROPINIROLE PO SCH (21:00)
--- NOTE | 2019-01-25 21:44 | CON ---
DATE OF CONSULTATION: 01/25/2019 REQUESTING PHYSICIAN: Dr. Vitale. REASON FOR CONSULTATION: Lower GI bleeding. HISTORY OF PRESENT ILLNESS: Rio Shepherd is a very pleasant 63-year-old gentleman, who was previously seen by my GI colleague, Dr. Mich Logan. I met him just a week ago in the outpatient GI clinic to discuss his chronic dysphagia. He has a history of large hiatal hernia. His last EGD in January 2017 showed large hiatal hernia, but was otherwise normal. He had an esophageal dilation performed at that time and had some improvement in dysphagia, but now this has been progressive over the past several weeks and months. We had planned for outpatient EGD with repeat dilation next week. Mr. Shepherd is admitted to the hospital earlier today with a separate issue. He reports that just a couple of days ago, he started having some pain in the right lower quadrant. This was followed by a single episode of hematochezia. However, the following day, the abdominal pain persisted and came to involve the entire lower abdomen and he started having multiple episodes of hematochezia. He describes a large amount of bright red blood mixed in with stool, significant volume each time. He had 6 or 7 episodes yesterday. Today, the lower abdominal discomfort has persisted and he has had 6 or 7 episodes today. He started feeling dizzy and weak and that is why he presented to the emergency department. He denies any fevers, chills, nausea, or vomiting. On admission, hemoglobin was 10.9. Repeat hemoglobin was 10.1. FOBT is positive. The patient is on aspirin and Plavix, but has been holding his Plavix for the past 3 days. He is currently hemodynamically stable and has no other complaints. REVIEW OF SYSTEMS: Full review of systems including constitutional, head, eyes, ears, nose, throat, GI, , cardiovascular, respiratory, musculoskeletal, neurologic systems is negative except as noted in the HPI. PAST MEDICAL HISTORY: Morbid obesity; chronic pain syndrome from reflex sympathetic dystrophy; peripheral neuropathy; hypertension; dyslipidemia; coronary artery disease with stent placement; obstructive sleep apnea; diverticulitis; right hip nerve stimulator; nephrolithiasis; TIA; right knee surgery; lumbar spine surgery; shoulder surgery; postoperative infection of right knee, on long-term antibiotics with amoxicillin currently. SOCIAL HISTORY: No tobacco, alcohol, or drug abuse. FAMILY HISTORY: Positive for coronary artery disease and diabetes among several family members. ALLERGIES: CODEINE, GABAPENTIN, IODINE. HOME MEDICATIONS: 1. Aspirin 325 mg daily. 2. Lipitor. 3. Plavix 75 mg daily. 4. Lasix 40 mg daily. 5. Lyrica. 6. Singulair. 7. Albuterol. 8. Ranexa. 9. Ropinirole. 10. Metoprolol. 11. Imdur. 12. Potassium chloride 20 mEq daily. 13. Protonix 40 mg daily. 14. Lisinopril. 15. Metolazone. 16. Allopurinol. 17. Amoxicillin. 18. Flomax. 19. Calcium/vitamin D. 20. Celexa. 21. Ferrous sulfate 150 mg daily. PHYSICAL EXAMINATION: VITAL SIGNS: Temperature 97.6, pulse 52, blood pressure 150/65, 98% oxygen saturation on room air. GENERAL: Obese, 63-year-old man, sitting up in bed comfortably, in no distress. MENTAL: He is alert and fully oriented, pleasant, conversational. SKIN: No jaundice. No rashes that were palpable. EYES: No scleral icterus. Extraocular movements intact. ENT: Mucous membranes moist. No oral lesions. LYMPH: No submandibular or supraclavicular lymphadenopathy. THYROID: Nontender to palpation. HEART: Regular rate and rhythm. LUNGS: Clear to auscultation bilaterally. ABDOMEN: Obese. Bowel sounds are present. The abdomen is soft. There is tenderness to palpation across the lower abdomen, but no guarding or rebound tenderness. EXTREMITIES: No peripheral edema. VESSELS: Radial pulses 2+ bilaterally. NEUROLOGIC: Cranial nerves 2 through 12 intact bilaterally. No focal deficits. LABORATORY STUDIES: Hemoglobin 10.1, WBC 5.8, platelets 276. Lipase 12. LFTs all normal. INR 1.0. Troponin negative. BNP only 98.3. BUN 15, creatinine 0.74. FOBT is positive. ASSESSMENT AND PLAN: 1. Hematochezia, acute over the past couple of days. 2. Lower abdominal pain, also acute over the past couple of days. 3. Acute blood loss anemia. I discussed fairly wide differential for lower gastrointestinal bleeding with the patient. Clinically, this seems to represent either a diverticular bleeding episode, or possibly acute hemorrhagic colitis. Note, he is on chronic amoxicillin, so this puts him at risk for Clostridium difficile. His last colonoscopy was in February 2015 and did show diverticulosis as well as internal hemorrhoids. He is stable at this time. Continue to monitor. We will need to order stool studies to rule out Clostridium difficile and other pathogens. I do recommend further investigation with colonoscopy as well. 4. Chronic dysphagia. This is a more chronic symptom, which is persistent. We would plan for outpatient EGD next week anyway. We will go ahead and perform EGD along with a colonoscopy tomorrow. We will probably plan for repeat esophageal dilation at that time. Administer bowel preparation tonight in anticipation of procedure tomorrow morning. Aspirin and Plavix are being held. Further recommendations following endoscopy and we will also follow up results of stool studies. Thank you for the consultation. Please call anytime with questions or concerns. Job ID: [id number]
[2019-01-26 00:32] LABS: Hemoglobin 10.7 g/dL (14.0-18.0)
[2019-01-26] MEDS: AMOXicillin 250 MG CAP PO SCH (01:52)
[2019-01-26] MEDS: Morphine 2 MG/ML SYRINGE SLOW IVP PRN ×2 (01:54→06:30)
[2019-01-26 05:22] LABS: #Eosinphils 0.3 thou/uL (0.0-0.7); #Lymphocytes 1.6 thou/uL (1.20-3.40); #Monocytes 0.5 thou/uL (0.11-0.59); #Neutrophils 3.3 thou/uL (1.40-6.50); %Basophils 0.3 % (0.0-1.0); %Eosinophils 5.1 % (0.0-10.0); %Lymphocytes 28.5 % (21.0-51.0); %Monocytes 8.1 % (0.0-10.0); %Neutrophils 58.1 % (42.0-75.0); Hemoglobin 11.2 g/dL (14.0-18.0); Mean Corpuscular HGB CONC 34.4 g/dL (32.0-36.0); Mean Corpuscular Hemoglobin 34.5 pg (27.0-31.0); Mean Platelet Volume 6.7 fL (7.4-10.4); Platelet Count 274 thou/uL (130-400); RBC Distribution Width 12.3 % (11.5-14.5); Red Blood Cell (RBC) Count 3.25 mill/uL (4.70-6.10); White Blood Cell (WBC) Count 5.7 thou/uL (4.8-10.8)
[2019-01-26 05:37] LABS: Anion Gap 12 mmol/L (10-20); BUN (Urea Nitrogen) 10 mg/dL (8.4-25.7); Calc. Creatinine Clearance 181 mL/min (70-130); Calcium 9.2 mg/dL (7.8-10.44); Carbon Dioxide 29 mmol/L (23-31); Chloride 100 mmol/L (98-107); Estimated GFR-MDRD Greater than 90; Glucose 81 mg/dL (80-115); Potassium 3.8 mmol/L (3.5-5.1); Sodium 137 mmol/L (136-145)
[2019-01-26] MEDS ORDERED: Ketamine 50 MG/ML (10ML VIAL) ONE (08:57)
[2019-01-26] MEDS ORDERED: Citalopram 20 MG TAB PO SCH (09:00)
[2019-01-26] MEDS ORDERED: Fish Oil 1,000 MG CAP PO SCH (09:00)
[2019-01-26] MEDS ORDERED: Lisinopril 10 MG TAB PO SCH (09:00)
[2019-01-26] MEDS ORDERED: Allopurinol 100 MG TAB PO SCH (09:00)
[2019-01-26] MEDS ORDERED: Fluticasone Propionate Nasal Spray 16 gm Bottle NASAL SCH (09:00)
[2019-01-26] MEDS ORDERED: Montelukast Sodium 10 mg Tablet PO SCH (09:00)
[2019-01-26] MEDS ORDERED: Promethazine HCl 25 MG/ML VIAL SLOW IVP PRN (09:44)
[2019-01-26] MEDS ORDERED: Ondansetron HCl/PF 4 MG/2 ML Vial IVP PRN (09:44)
[2019-01-26] MEDS ORDERED: Promethazine HCl 25 MG/ML VIAL IM PRN (09:44)
[2019-01-26] MEDS: Potassium Chloride 20 MEQ TAB PO SCH (10:22)
[2019-01-26] MEDS: Furosemide 20 MG TAB PO SCH (10:23)
[2019-01-26] MEDS: Meclizine HCl 25 MG TAB PO SCH (10:23)
[2019-01-26] MEDS: Pregabalin 75 MG CAP PO SCH (10:24)
[2019-01-26] MEDS: Mometasone/Formoterol 120 PUFF INHALER INH SCH ×2 (10:27→10:57)
[2019-01-26 11:35] VITALS: BP 174/76; TEMP 97.5
[2019-01-26] MEDS ORDERED: PROPOFOL 200 MG/20 ML VIAL ONE (14:27)
[2019-01-26] MEDS ORDERED: ePHEDrine 50 MG/ML VIAL ONE (14:27)
--- NOTE | 2019-01-26 16:14 | OP ---
DATE OF PROCEDURE: 01/26/2019 REFUSE COLLECTOR SURGEON: None. PROCEDURES: 1. EGD with esophageal dilation over guidewire. 2. Colonoscopy, diagnostic. INDICATIONS: 1. Dysphagia, chronic. 2. Hematochezia. 3. Lower abdominal discomfort. 4. Acute blood loss anemia, stabilized. MEDICATIONS: See Anesthesia record. FINDINGS: After discussion of the risks, benefits, and alternatives of the procedure, informed consent was obtained and witnessed. Pre-endoscopic cardiopulmonary examination was satisfactory. Time-out was performed before sedation was achieved. Sedation was achieved with Anesthesia assistance in the endoscopy unit. A Pentax adult upper endoscope was placed into the oropharynx and passed through the cricopharyngeus under direct visualization. The esophageal mucosa appeared normal throughout with a normal-appearing Z-line at 38 cm from the incisors. There was some resistance of endoscope passage beyond the lower esophageal sphincter, though with no structural abnormality visualized, appearing to represent a hypertonic lower esophageal sphincter. The endoscope was passed into the stomach. Forward and retroflexed views of the entire gastric mucosa were obtained. The gastric mucosa appeared normal throughout. There was no evidence of any old blood or active bleeding or bleeding lesions. There is a 7 cm hiatal hernia from 38 to 45 cm from the incisors. The endoscope was advanced through the pylorus and into the first and second portions of the duodenum, which appeared normal. At this point, a ring-tipped guidewire was passed through the accessory port with the tip placed in the gastric antrum and the endoscope was removed leaving the guidewire in place. I performed a single Savary dilation over the guidewire to 18 mm. The dilator passed easily. The esophagus was re-examined following dilation and there was no change. The upper endoscope was completely withdrawn and the patient was repositioned. Digital rectal exam was performed, which was unremarkable. A Pentax adult colonoscope was inserted into the anus and passed forward to the cecum in the usual fashion. The cecal base was identified by the appendiceal orifice as well as the ileocecal valve. The terminal ileum was intubated and the ileal mucosa appeared normal. There was no evidence of any blood in the terminal ileum. The colonoscope was then slowly withdrawn in a gradual and circumferential manner with careful examination of the entire colonic mucosa. The quality of the prep was fair to poor. There was a significant amount of liquid and semi-particulate stool within the colon, and small polyps may have been missed. However, we were visualized the colonic mucosa was normal. There were no polyps or mass lesions visualized. There was no evidence of any old blood or active bleeding throughout the entirety of the colon. The stool in the colon was brown in color. There was heavy diffuse diverticulosis throughout the entire colon, but no evidence of diverticulitis, no evidence of any bleeding that I can see. Retroflexion in the rectum showed very small internal hemorrhoids. The colonoscope was completely withdrawn and the patient allowed to recover. The patient tolerated the procedure well. There were no immediate postprocedure complications. IMPRESSION: 1. Hypertonic lower esophageal sphincter, but no esophageal stricture or other esophageal abnormality. Esophagus dilated to 18 mm. 2. 7 cm hiatal hernia, from 38 to 45 cm. 3. Otherwise, normal EGD. 4. Diffuse diverticulosis throughout the entire colon. 5. Poor bowel preparation, but no evidence of any old blood or active bleeding or bleeding lesions throughout the colon. 6. Normal terminal ileum, with no blood in the terminal ileum. 7. Small internal hemorrhoids. 8. The patient's recent episode likely represented a diverticular bleed, which is now resolved. RECOMMENDATIONS: 1. Advance diet. 2. If the patient were to have significant overt rebleeding, then the next step would be to get an immediate stat tagged RBC scan for localization. 3. The patient is okay for hospital discharge from a GI perspective. 4. Follow up in the GI Clinic with me or my physician shop assistant in the next 3 to 4 weeks. GI will sign off, please call back anytime with questions or concerns. Job ID: [id number]
[2019-01-28] MEDS ORDERED: Metolazone 5 MG TAB PO SCH (09:00)
== END 2019-01-26 13:54 | disposition home or self-care (01) ==
LOC: ERS 07:39 → 2SW 08:33
PROVIDERS: ADMIT Internal Medicine; ATTEND Internal Medicine
PROC: 0DJD8ZZ Inspection of Lower Intestinal Tract, Via Natural or Artificial Opening Endoscopic (ICD-10-PCS; principal; 2019-01-25)
PROC: 0D758ZZ Dilation of Esophagus, Via Natural or Artificial Opening Endoscopic (ICD-10-PCS; 2019-01-25)
DX: D62 Acute posthemorrhagic anemia (principal); K92.1 Melena; R13.10 Dysphagia, unspecified; G89.4 Chronic pain syndrome; I10 Essential (primary) hypertension; E78.5 Hyperlipidemia, unspecified; I25.10 Atherosclerotic heart disease of native coronary artery without angina pectoris; G47.33 Obstructive sleep apnea (adult) (pediatric); J44.9 Chronic obstructive pulmonary disease, unspecified; G62.9 Polyneuropathy, unspecified; M54.5 Low back pain; E66.01 Morbid (severe) obesity due to excess calories; Z68.38 Body mass index [BMI] 38.0-38.9, adult; Z79.82 Long term (current) use of aspirin; Z79.899 Other long term (current) drug therapy; Z88.6 Allergy status to analgesic agent; Z88.8 Allergy status to other drugs, medicaments and biological substances; Z91.041 Radiographic dye allergy status; Z95.5 Presence of coronary angioplasty implant and graft
CPT/HCPCS: 43248; 45378; 80048; 80053; 81003; 82274; 82550; 83630; 83690; 83880; 84484; 85014 ×2; 85018 ×2; 85025 ×2; 85610; 85730; 86850; 86900; 86901; 87045; 87046; 87324; 87449 ×2; 87899 ×2; 93005; 94640; 94664; 96361; 96374; 96375; 96376 ×2; 99285; G0378 ×2; 36415; C9113; J2270; J2704; J3490; J8499

== ENCOUNTER 2019-11-05 08:21 | Outpatient (CLI) | payer MEDICARE, MEDICAID ==
--- NOTE | 2019-11-05 10:31 | RAD ---
Esophagram HISTORY: Dysphagia. FINDINGS: Air contrast and single column barium evaluation of the esophagus shows moderate sized hiat al hernia with approximately one half of the stomach above the level of the diaphragm. Initial swallows showed diminished primary and secondary peristalsis with severe tertiary type contra ctions. The liquid initially passed quickly into the stomach. Administration of a 12 mm barium tablet was performed. The tablet became impacted at the lower esopha geal sphincter, with liquid backing up behind. The tablet remained impacted at the GE junction over a course of 40 minutes. 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 Severe presbyesophagus. Findings were called the office of Dr. Murdock at the time the exam. Code CR.
== END 2019-11-05 08:22 | disposition home or self-care (01) ==
LOC: RAD 08:21
PROVIDERS: ATTEND Internal Medicine
DX: R13.10 Dysphagia, unspecified (principal); K44.9 Diaphragmatic hernia without obstruction or gangrene; K58.9 Irritable bowel syndrome, unspecified; K22.2 Esophageal obstruction; K22.8 Other specified diseases of esophagus
CPT/HCPCS: 74220

== ENCOUNTER → 2019-11-05 | Day surgery (SDC) | payer MEDICARE, MEDICAID | LOC: SDC 07:20 | PROVIDERS: ATTEND Internal Medicine | DX: K44.9 Diaphragmatic hernia without obstruction or gangrene (principal); Z88.1 Allergy status to other antibiotic agents; Z88.8 Allergy status to other drugs, medicaments and biological substances; Z91.041 Radiographic dye allergy status; Z88.5 Allergy status to narcotic agent | CPT/HCPCS: 91010 ==

== ENCOUNTER 2019-11-08 06:53 | Day surgery (SDC) | payer MEDICARE, MEDICAID ==
[2019-11-07 10:29] VITALS: BMI 36.2
[2019-11-08] MEDS ORDERED: EPHEDRINE 25 MG/5 ML SYRINGE ONE (09:50)
[2019-11-08] MEDS ORDERED: PROPOFOL 200 MG/20 ML VIAL ONE (09:50)
[2019-11-08] MEDS ORDERED: Lidocaine 1% PF 5 ML VIAL ONE (09:50)
--- NOTE | 2019-11-08 10:24 | OP ---
DATE OF PROCEDURE: 11/08/2019 LIBRARY SCIENCE INSTRUCTOR SURGEON: None. PROCEDURE PERFORMED: Esophagogastroduodenoscopy with esophageal dilation and biopsies. INDICATIONS: 1. Dysphagia. 2. Abnormal barium esophagram, suggesting high-grade stricture at the GE junction. He had a recent EGD last year, which showed no mucosal lesion, minimal response to esophageal dilation at that time. Attempt at esophageal manometry failed. Suspect achalasia or other esophageal motility disorder. MEDICATIONS: See Anesthesia record. FINDINGS: After discussion of the risks, benefits, and alternatives of the procedure, informed consent was obtained and witnessed. Pre-endoscopic cardiopulmonary examination was satisfactory. Time-out was performed before sedation was achieved. Sedation was achieved with Anesthesia assistance in the endoscopy unit. A Pentax adult upper endoscope was placed into the oropharynx and passed through the cricopharyngeus under direct visualization. The esophageal mucosa appeared normal throughout the entire esophagus. There were no mucosal base lesions. There was no evidence of inflammation, any fibrosis, or mass lesion. The esophagus was tortuous consistent with presbyesophagus. The GE junction was at 35 cm from the incisors. The lower esophageal sphincter did appear hypertonic with some difficulty advancing the endoscope through this area. However, the mucosa in this area appeared normal. The endoscope was advanced into the stomach. Forward and retroflexed views of the entire gastric mucosa were obtained. The gastric mucosa appeared normal throughout. There was a 7 cm hiatal hernia from 35 to 42 cm from the incisors. There was no evidence of any Maximo erosions or ulcerations. On retroflexed view of the GE junction, it appeared that there was a small amount of prolapse of the esophagus into the stomach with forward traction of the endoscope. This was likely consistent with hypertonic LES. The mucosa in this area did not appear abnormal. However, I did obtain biopsies of the GE junction for histology. The endoscope was advanced through the pylorus and into the first and second portions of the duodenum, which appeared normal. At this point, the endoscope was withdrawn back into the distal esophagus. Using through the scope, graduated the balloon dilator, I serially dilated the lower esophageal sphincter area to 18, then 19, then 20 mm. Following dilation, the mucosa was re-examined. There was no mucosal disruption. The upper endoscope was completely withdrawn and the patient allowed to recover. The patient tolerated the procedure well. There were no immediate postprocedure complications. IMPRESSION: 1. Presbyesophagus. 2. Hypertonic lower esophageal sphincter, balloon dilated to 18, then 19, then 20 mm, with no mucosal disruption. 3. Biopsies obtained of normal-appearing gastroesophageal junction. 4. Otherwise normal esophagogastroduodenoscopy. RECOMMENDATIONS: 1. Follow up pathology on GE junction biopsies. 2. Clinic followup in 2 to 3 weeks. 3. Liquid or soft diet. 4. We will consider referral to [facility] for re-attempted esophageal manometry, and consideration of definitive therapy if achalasia is confirmed. Job ID: [id number]
== END 2019-11-08 10:50 | disposition home or self-care (01) ==
LOC: SDC 06:53
PROVIDERS: ATTEND Internal Medicine
PROC: 0D758ZZ Dilation of Esophagus, Via Natural or Artificial Opening Endoscopic (ICD-10-PCS; principal; 2019-11-08)
PROC: 0DB48ZX Excision of Esophagogastric Junction, Via Natural or Artificial Opening Endoscopic, Diagnostic (ICD-10-PCS; 2019-11-08)
DX: K29.50 Unspecified chronic gastritis without bleeding (principal); K22.8 Other specified diseases of esophagus; K44.9 Diaphragmatic hernia without obstruction or gangrene; I25.10 Atherosclerotic heart disease of native coronary artery without angina pectoris; E78.00 Pure hypercholesterolemia, unspecified; I10 Essential (primary) hypertension; I25.2 Old myocardial infarction; Z86.73 Personal history of transient ischemic attack (TIA), and cerebral infarction without residual deficits; Z91.041 Radiographic dye allergy status; Z88.8 Allergy status to other drugs, medicaments and biological substances; Z88.5 Allergy status to narcotic agent; Z98.890 Other specified postprocedural states; Z96.651 Presence of right artificial knee joint; Z79.82 Long term (current) use of aspirin; Z79.899 Other long term (current) drug therapy
CPT/HCPCS: 88305; 88312; 88313; J2001; J2704

== ENCOUNTER 2020-01-09 11:12 | Inpatient (IN) | payer MEDICARE, MEDICAID ==
[2020-01-09 12:03] LABS: #Eosinphils 0.1 thou/uL (0.0-0.7); #Lymphocytes 1.2 thou/uL (1.20-3.40); #Monocytes 0.5 thou/uL (0.11-0.59); #Neutrophils 5.1 thou/uL (1.40-6.50); %Basophils 0.2 % (0.0-1.0); %Eosinophils 1.6 % (0.0-10.0); %Lymphocytes 16.6 % (21.0-51.0); %Monocytes 7.1 % (0.0-10.0); %Neutrophils 74.5 % (42.0-75.0); Hemoglobin 10.8 g/dL (14.0-18.0); Mean Corpuscular HGB CONC 33.6 g/dL (32.0-36.0); Mean Corpuscular Hemoglobin 34.1 pg (27.0-31.0); Mean Platelet Volume 6.9 fL (7.4-10.4); Platelet Count 281 thou/uL (130-400); RBC Distribution Width 12.9 % (11.5-14.5); Red Blood Cell (RBC) Count 3.15 mill/uL (4.70-6.10); White Blood Cell (WBC) Count 6.9 thou/uL (4.8-10.8)
[2020-01-09 12:17] LABS: ALT (SGPT) 16 U/L (8-55); AST (SGOT) 13 U/L (5-34); Albumin 3.8 g/dL (3.4-4.8); Alkaline Phosphatase 92 U/L (40-110); Anion Gap 12 mmol/L (10-20); BUN (Urea Nitrogen) 35 mg/dL (8.4-25.7); Bilirubin, Total 0.3 mg/dL (0.2-1.2); Calc. Creatinine Clearance 0 mL/min (70-130); Calcium 8.5 mg/dL (7.8-10.44); Carbon Dioxide 23 mmol/L (23-31); Chloride 105 mmol/L (98-107); Estimated GFR-MDRD 51; Globulin 2.4 g/dL (2.4-3.5); Glucose 88 mg/dL (80-115); Potassium 4.4 mmol/L (3.5-5.1); Protein, Total 6.2 g/dL (5.8-8.1); Sodium 136 mmol/L (136-145)
--- NOTE | 2020-01-09 14:03 | RAD ---
PORTABLE CHEST ONE VIEW: 01/09/20 at 11:22 a.m. COMPARISON: Chest pain. FINDINGS: Comparison is made with exam of 06/28/18. The heart is prominent but stable. There is continued elevation of the right hemidiaphragm. No lobar consolidation, pneumothoraces, valente pulmonary edema or pleural effusions are seen. IMPRESSION: No radiographic evidence of acute cardiopulmonary process. POS: [id number]
[2020-01-09] MEDS ORDERED: Acetaminophen 325 MG TAB ONE (15:34)
[2020-01-09 16:17] LABS: Magnesium 1.7 mg/dL (1.6-2.6)
[2020-01-09 16:35] LABS: INR-International Normal Ratio 0.9; PTT 34.6 SEC (22.9-36.1); Prothrombin Time 12.5 sec (12.0-14.7)
[2020-01-09] MEDS ORDERED: Ondansetron PF 4 MG/2 ML Vial IVP PRN (18:15)
[2020-01-09] MEDS ORDERED: hydrALAZINE 20 MG/ML VIAL SLOW IVP PRN (18:15)
[2020-01-09] MEDS ORDERED: Ondansetron ODT 4 MG TAB PO PRN (18:15)
[2020-01-09 18:50] VITALS: BMI 39.0
[2020-01-09] MEDS: Sodium Chloride 0.9% 1,000 ML IV SCH (19:10)
[2020-01-09] MEDS: Montelukast Sodium 10 mg Tablet PO SCH (21:35)
[2020-01-09] MEDS: rOPINIRole HCl 2 MG TAB PO SCH (21:35)
[2020-01-09] MEDS: Famotidine 20 MG TAB PO SCH (21:35)
[2020-01-09] MEDS: Potassium Chloride 20 MEQ TAB PO SCH (21:35)
[2020-01-09] MEDS: Tamsulosin HCl 0.4 MG CAP PO SCH (21:36)
[2020-01-09] MEDS: Pregabalin 25 MG CAP PO SCH (21:36)
--- NOTE | 2020-01-09 22:20 | HP ---
PRIMARY CARE PROVIDER: Dr. Edilberto Dawn. CHIEF COMPLAINT: Dizziness and generalized weakness. HISTORY OF PRESENT ILLNESS: This is a 64-year-old male, who presents to [facility] Department complaining of 3 to 4 day history of increasing dizziness, weakness, and general malaise. The patient states he has had several episodes, where he stands up or starts to walk when he feels like tunnel vision is setting in with spots in his eye and his visual field, feeling like he is about to pass out. The patient states he has taken several rounds of his meclizine at home with mild relief of his symptoms. The patient denied any documented fever, chills, but does admit to some nausea and emesis. The patient denied any dysuria, but does admit to some loose stool but no valente consistent diarrhea. The patient denies any recent travel history, COVID-19 exposure or change to his chronic medication regimen. The patient does admit to some chest pain, taking sublingual nitroglycerin, as well as blood pressure medication including metoprolol and lisinopril. The patient denied any specific syncopal episode, recent head trauma, or fall. The patient does states he uses a quad cane for ambulation. The patient denied any specific unilateral weakness or difficulty with speech. In the emergency room, the patient underwent general evaluation showing bradycardia with heart rates in the 40s to the mid 50s with associated hypotension. The patient received 1.5 L of intravenous normal saline and Tylenol in the emergency room. The patient was also noted with a mild elevation to his baseline creatinine at 1.40. The patient was transferred to the observation unit for further evaluation. PAST MEDICAL HISTORY: 1. Polypharmacy. 2. Hypertension. 3. 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 4. History of diverticulosis. 5. Chronic dysphagia. 6. Morbid obesity. 7. Chronic obstructive pulmonary disease. 8. Benign prostatic hyperplasia. 9. Coronary artery disease. 10. Chronic pain syndrome with reflex sympathetic dystrophy. 11. Peripheral neuropathy. 12. Dyslipidemia. 13. Obstructive sleep apnea. 14. History of right hip nerve stimulator. 15. History of nephrolithiasis. 16. History of transient ischemic attack. PAST SURGICAL HISTORY: 1. Status post right knee surgery. 2. Status post lumbar spine surgery. 3. Status post shoulder repair. 4. Status post lithotripsy. 5. Status post right hip stimulator placement. 6. Status post EGD with esophageal dilation due to his lower esophageal stricture. CURRENT MEDICATIONS: 1. ProAir HFA 2 puffs inhaled q.4 hours p.r.n. 2. Allopurinol 100 mg p.o. daily. 3. Armodafinil 150 mg p.o. daily. 4. Aspirin 325 mg p.o. daily. 5. Lipitor 40 mg p.o. at bedtime. 6. Vitamin D3 of 5000 units p.o. daily. 7. Citalopram 40 mg p.o. daily. 8. Bentyl 20 mg p.o. q.i.d. p.r.n. 9. Flonase 1 spray in each naris daily. 10. Advair Diskus one inhalation daily. 11. Lasix 20 mg p.o. b.i.d. 12. Isosorbide mononitrate 60 mg p.o. daily. 13. Lisinopril 10 mg p.o. daily. 14. Antivert 25 mg p.o. t.i.d. p.r.n. 15. Zaroxolyn 5 mg p.o. Monday, Monday, Monday. 16. Metoprolol succinate 12.5 mg p.o. q.a.m. 17. Singulair 10 mg p.o. daily. 18. Broussard-3 fatty acids 1 capsule p.o. daily. 19. Zofran 8 mg p.o. q.6 hours p.r.n. 20. Klor-Con 20 mEq p.o. b.i.d. 21. Lyrica 25 mg p.o. b.i.d. 22. Ranexa 1000 mg p.o. b.i.d. 23. Ropinirole 4 mg p.o. at bedtime. 24. Plavix 75 mg p.o. daily. 25. Flomax 0.4 mg p.o. at bedtime. ALLERGIES: IODINE, LEVOFLOXACIN, GABAPENTIN, AND PREGABALIN. FAMILY HISTORY: Positive for coronary artery disease and diabetes mellitus. SOCIAL HISTORY: . Resides in the [place], [place] area. No current alcohol , tobacco, or illicit drug use. Ambulates with a quad cane. REVIEW OF SYSTEMS: CONSTITUTIONAL: Negative for weight loss or gain, ability to conduct usual activities. SKIN: Negative for rash, itching. EYES: Negative for double vision, pain. ENT/MOUTH: Negative for nose bleeding, neck stiffness, pain, tenderness. CARDIOVASCULAR: Negative for palpitations, dyspnea on exertion, orthopnea. RESPIRATORY: Negative for shortness of breath, wheezing, cough, hemoptysis, fever or night sweats. GASTROINTESTINAL: Negative for poor appetite, abdominal pain, heartburn, nausea , vomiting, constipation, or diarrhea. GENITOURINARY: Negative for urgency, frequency, dysuria, nocturia. MUSCULOSKELETAL: Negative for pain, swelling. NEUROLOGIC/PSYCHIATRIC: Negative for anxiety, depression. ALLERGY/IMMUNOLOGIC: Negative for skin rash, bleeding tendency. Otherwise negative except as stated per HPI. PHYSICAL EXAMINATION: VITAL SIGNS: On admission; blood pressure 166/74, pulse 50, respiratory rate 18 , temperature 97.8 degrees Fahrenheit, and O2 saturation 99% on room air. GENERAL APPEARANCE: This is a 64-year-old male, alert and oriented x3, pleasant, smiling, in no acute distress. HEENT: Pupils are equal, round, reactive to light and accommodation. Extraocular muscles are intact. No scleral icterus. No conjunctival injection. Nares are patent. OP is clear. Teeth in fair repair. NECK: Supple. No cervical adenopathy. No thyromegaly. No carotid bruits. No JVD appreciated. Cervical spine with full active and passive range of motion. No meningeal signs noted. CHEST: Diminished breath sounds in the bases, otherwise clear. CARDIOVASCULAR: S1, S2 without noted murmur, rub, or gallop. ABDOMEN: Obese, soft, nontender, and nondistended. Bowel sounds are positive in all 4 quadrants. There is no palpable mass. No rebound or guarding appreciated. EXTREMITIES: Warm and dry with fair turgor. No clubbing, cyanosis, or asymmetric edema appreciated. Pulses palpable distally at the dorsalis pedis, posterior tibial, and popliteal arteries bilaterally. Capillary refill less than 2 seconds. NEUROLOGIC: Cranial nerves 2 through 12 are grossly intact. No focal or lateralizing signs appreciated. The patient is not observed ambulatory during this exam. PERTINENT LABORATORY AND X-RAY FINDINGS: Sodium 136, potassium 4.4, chloride 105, CO2 of 23, BUN 35, creatinine 1.40, estimated GFR 51, glucose 88, lactic acid level 8.5, magnesium 1.7. LFTs within normal limits. Troponin I negative x1. BNP 89.3. Lipase 23. CBC showed a white blood cell count of 6.9, hemoglobin 11 , hematocrit 32, MCV 102, platelet count 281 with 75% neutrophils. PT 12.5, INR 0.9, PTT 34.6. Portable chest x-ray dated 01/09/2020, showed no acute cardiopulmonary process. EKG dated 01/09/2020 by my interpretation shows sinus bradycardia with heart rates in the 50s. Complete right bundle-branch block pattern. No acute ST-T wave changes noted. ASSESSMENT AND PLAN: 1. Acute kidney injury. The patient will be observed on the telemetry unit. We will continue intravenous normal saline at 50 mL/h. Avoid nephrotoxic agents and limit contrast exposure. Repeat creatinine in the a.m. 2. Dizziness/near syncope. Suspect multifactorial including dehydration and potential iatrogenic influence from over-medication with antihypertensives. Continue supportive management. IV fluids as stated previously. Check orthostatic vital signs. Titrate blood pressure medication regimen to clinical response. 3. Hypotension. Suspect volume mediated and iatrogenic. Continue IV fluids as outlined previously. Serial blood pressure monitoring. The patient may need additional titration of his home blood pressure regimen for optimal response. 4. Polypharmacy. We will review patient's home medication regimen to ascertain if this could be modified or reduced. 5. Prophylaxis. SCDs while in bed. Pepcid 20 mg p.o. b.i.d. PT evaluation in the a.m. 6. Code status is full. Surrogate medical decision maker is the patient's spouse. Job ID: [id number] MTDD
[2020-01-10 04:37] LABS: Eosinophils 3 % (0-10); Hemoglobin 10.3 g/dL (14.0-18.0); Hypochromia SLIGHT = 6-15 cells (100X) (0-5/hpf); Lymphocytes 24 % (21-51); MDiff Complete? YES; Mean Corpuscular HGB CONC 33.4 g/dL (32.0-36.0); Mean Corpuscular Hemoglobin 33.9 pg (27.0-31.0); Mean Platelet Volume 7.1 fL (7.4-10.4); Monocytes 2 % (0-10); Neutrophil 71 % (42-75); Platelet Count 270 thou/uL (130-400); Platelet Morphology Comment Appears Adequate; RBC Distribution Width 12.7 % (11.5-14.5); Red Blood Cell (RBC) Count 3.05 mill/uL (4.70-6.10); White Blood Cell (WBC) Count 4.7 thou/uL (4.8-10.8)
[2020-01-10 04:47] LABS: Anion Gap 11 mmol/L (10-20); BUN (Urea Nitrogen) 26 mg/dL (8.4-25.7); Calc. Creatinine Clearance 166 mL/min (70-130); Calcium 8.1 mg/dL (7.8-10.44); Carbon Dioxide 25 mmol/L (23-31); Chloride 103 mmol/L (98-107); Estimated GFR-MDRD Greater than 90; Glucose 85 mg/dL (80-115); Potassium 4.1 mmol/L (3.5-5.1); Sodium 135 mmol/L (136-145)
[2020-01-10] MEDS: Mometasone 100 MCG/Formoterol 5 MCG 120 PUFF INHALER INH SCH ×2 (06:40→18:23)
[2020-01-10] MEDS: Fluticasone Propionate Nasal Spray 16 gm Bottle NASAL SCH (09:22)
[2020-01-10] MEDS: Aspirin 325 MG TAB PO SCH (09:23)
[2020-01-10] MEDS: Citalopram 20 MG TAB PO SCH (09:24)
[2020-01-10] MEDS: Acetaminophen 500 MG TAB PO PRN (09:24)
[2020-01-10] MEDS: Fish Oil 1,000 MG CAP PO SCH (09:25)
[2020-01-10] MEDS: Pregabalin 25 MG CAP PO SCH ×2 (09:25→20:31)
[2020-01-10] MEDS: Potassium Chloride 20 MEQ TAB PO SCH ×2 (09:25→20:32)
[2020-01-10] MEDS: Famotidine 20 MG TAB PO SCH ×2 (09:25→20:32)
[2020-01-10] MEDS ORDERED: Iopamidol-370 76% 500 ML 1 ML ONE (10:05)
[2020-01-10] MEDS ORDERED: Nitroglycerin 0.4 MG TAB (25 Tab Bottle) ONE (10:15)
[2020-01-10] MEDS: PROVENTIL INHALER 6.7 G (200 INHALATIONS) INH PRN ×2 (10:16→18:22)
[2020-01-10] MEDS ORDERED: Mag-Al 1200 mg/1200 mg/30 ML UDCUP PO PRN (10:24)
[2020-01-10] MEDS ORDERED: Nitroglycerin 0.4 MG TAB (25 Tab Bottle) SL PRN (10:26)
--- NOTE | 2020-01-10 11:05 | PDOC.HOSPP ---
- Subjective Encounter Date: 01/10/20 Encounter Time: 11:00 Subjective: Rose Martinez called this am due to lethargy, AMS per nursing. Pt states he feels sleepy. Received Nitro SL earlier for CP. No current complaints of CP. - Objective Vital Signs & Weight: Vital Signs (12 hours) Temp Pulse Resp BP BP BP Pulse Ox 01/10/20 10:16 46 L 20 96 01/10/20 06:44 98 01/10/20 06:40 44 L 16 98 01/10/20 03:23 97.9 F 47 L 18 111/56 L 98 01/10/20 01:30 48 L 20 141/60 H 137/63 98 Weight Weight 280 lb I&O: 01/09/20 01/10/20 01/11/20 06:59 06:59 06:59 Intake Total 880 Output Total 2250 1000 Balance -1370 -1000 Result Diagrams: 01/10/20 03:38 01/10/20 03:38 Additional Labs: Microbiology 05/18/17 05:50 Buttock Stool Occult Blood (STUART) - Final 05/18/17 05:50 Buttock C. difficile GDH Antigen & Toxins - Final 05/17/17 15:45 Urine ray catheter Urine Culture - Final Escherichia coli 05/17/17 15:45 Urine ray catheter Urine Culture - Preliminary Escherichia coli Laboratory Tests 05/17/17 05/17/17 01/09/20 06:16 06:16 11:48 Hgb 9.1 L Sodium 134 L BUN 82 H 35 H Creatinine 6.12 H 1.40 H Magnesium Troponin I B-Natriuretic Peptide Lipase 01/09/20 01/09/20 01/09/20 11:49 11:49 11:49 Hgb 10.8 L Sodium BUN Creatinine Magnesium Troponin I Less than 0.010 B-Natriuretic Peptide 89.3 Lipase 01/09/20 15:15 Hgb Sodium BUN Creatinine Magnesium 1.7 Troponin I B-Natriuretic Peptide Lipase 23 Radiology Reviewed by me: Yes (PCXR - no acute process, CT brain pending) EKG Reviewed by me: Yes (Tele - marked sinus bradycardia in 40's) Hospitalist ROS - Medication Medications: Active Medications Generic Name Dose Route Start Last Admin Trade Name Freq PRN Reason Stop Dose Admin Albuterol Sulfate 2 puff 01/09/20 18:15 01/10/20 10:16 Proventil Hfa INH 2 puff Q4H PRN Administration shortness of breath Aspirin 325 mg 01/10/20 09:00 01/10/20 09:23 Aspirin PO 325 mg QAM LINDSEY Administration Cholecalciferol 5,000 units 01/10/20 09:00 01/10/20 09:24 Vitamin D3 PO 5,000 units DAILY LINSDEY Administration Citalopram Hydrobromide 40 mg 01/10/20 09:00 01/10/20 09:24 Celexa PO 40 mg DAILY LINDSEY Administration Famotidine 20 mg 01/09/20 21:00 01/10/20 09:25 Pepcid PO 20 mg BID LINDSEY Administration Fish Oil 1,000 mg 01/10/20 09:00 01/10/20 09:25 Fish Oil PO 1,000 mg DAILY LINDSEY Administration Fluticasone Propionate 0 gm 01/10/20 09:00 01/10/20 09:22 Flonase Nasal [place] NASAL Not Given DAILY LINDSEY Sodium Chloride 1,000 mls @ 50 mls/hr 01/09/20 18:15 01/09/20 19:10 Normal Saline 0.9% IV 1,000 mls .Q20H LINDSEY Administration Isosorbide Mononitrate 60 mg 01/10/20 09:00 01/10/20 09:35 Imdur PO 60 mg DAILY LINDSEY Administration Mometasone Furoate/Formoterol Fumar 2 puff 01/10/20 06:30 01/10/20 06:40 Dulera 100 Mcg/5 Mcg Inhaler INH 2 puff BID-RT LINDSEY Administration Montelukast Sodium 10 mg 01/09/20 21:00 01/09/20 21:35 Singulair PO 10 mg HS LINDSEY Administration Potassium Chloride 20 meq 01/09/20 21:00 01/10/20 09:25 K-Dur PO 20 meq BID LINDSEY Administration Pregabalin 25 mg 01/09/20 21:00 01/10/20 09:25 Lyrica PO 25 mg BID LINDSEY Administration Ranolazine 1,000 mg 01/09/20 21:00 01/10/20 09:24 Ranexa PO 1,000 mg BID LINDSEY Administration Ropinirole HCl 4 mg 01/09/20 21:00 01/09/20 21:35 Requip PO 4 mg QPM LINDSEY Administration Tamsulosin HCl 0.4 mg 01/09/20 21:00 01/09/20 21:36 Flomax PO 0.4 mg HS LINDSEY Administration - Exam General - other findings: lethargic, opens eyes to name, tracks with eyes Eye: PERRL, anicteric sclera ENT: normocephalic atraumatic, no oropharyngeal lesions Neck: supple, symmetric, no JVD, no thyromegaly Heart: RRR, no gallops, no rubs, normal peripheral pulses Heart - other findings: S1, S2, bradycardic Respiratory: CTAB, no wheezes, no rales, no ronchi Gastrointestinal: soft, non-tender, non-distended, normal bowel sounds, no palpable masses Gastrointestinal - other findings: obese Extremities: no cyanosis, no clubbing, no edema Skin: normal turgor, no lesions Neurological: speech deficit Neurological - other findings: mild dysarthria, LLE drift Musculoskeletal: generalized weakness Musculoskeletal - other findings: drift in LLE Psychiatric: normal affect, A&O x 3 Hosp A/P (1) Encephalopathy acute Code(s): G93.40 - ENCEPHALOPATHY, UNSPECIFIED Status: Acute Plan: ? etiology, check stat CT brain to r/o CVA, EKG now, hold all psychotropes/ sedation, troponin I q3h x 2, CMP (2) Symptomatic bradycardia Code(s): R00.1 - BRADYCARDIA, UNSPECIFIED Status: Acute Plan: Apparent symptomatic bradycardia, hold all B-gurdeep/AV alejandra agents, consult Cardiology, check 2D echo, TSH (3) Near syncope Status: Acute Plan: Suspect secondary to #1, see above (4) Acute kidney failure Status: Acute Qualifiers: Acute renal failure type: with acute tubular necrosis Qualified Code(s): N17.0 - Acute kidney failure with tubular necrosis Plan: Improved with low-volume IVF's, avoid nephrotoxic meds and limit contrast exposure (5) Hypotension Status: Acute Plan: Likely multifactorial including iatrogenic, hold BP meds, 2D echo pending (6) Anxiety and depression Code(s): F41.9 - ANXIETY DISORDER, UNSPECIFIED; F32.9 - MAJOR DEPRESSIVE DISORDER, SINGLE EPISODE, UNSPECIFIED Status: Chronic (7) CAD (coronary artery disease) Code(s): I25.10 - ATHSCL HEART DISEASE OF [place] CORONARY ARTERY W/O ANG PCTRS Status: Chronic Qualifiers: Coronary Disease-Associated Artery/Lesion type: [place] artery [place] vs. transplanted heart: [place] heart Associated angina: without angina Qualified Code(s): I25.10 - Atherosclerotic heart disease of [place] coronary artery without angina pectoris Plan: Continue ASA/Plavix/Imdur/Fish oil (8) BRAD (obstructive sleep apnea) Code(s): G47.33 - OBSTRUCTIVE SLEEP APNEA (ADULT) (PEDIATRIC) Status: Chronic - Plan PT/OT, social security assessor, speech therapy, DVT proph w/SCDs CT of brain stat/angio if negative Continue low-volume IVF's Check 2D echo today Add Maalox Hold all BP meds Consult Cardiology regarding symptomatic bradycardia PT evaluation for functional assessment Check TSH, CMP, Troponin I now AM Lab: BMP, CBC Convert to inpt status
[2020-01-10 11:50] LABS: #Eosinphils 0.1 thou/uL (0.0-0.7); #Lymphocytes 1.3 thou/uL (1.20-3.40); #Monocytes 0.4 thou/uL (0.11-0.59); %Basophils 0.3 % (0.0-1.0); %Eosinophils 2.6 % (0.0-10.0); %Lymphocytes 27.5 % (21.0-51.0); %Monocytes 7.6 % (0.0-10.0); %Neutrophils 62.1 % (42.0-75.0); Hemoglobin 11.2 g/dL (14.0-18.0); Mean Corpuscular HGB CONC 34.4 g/dL (32.0-36.0); Mean Corpuscular Hemoglobin 34.8 pg (27.0-31.0); Mean Platelet Volume 6.8 fL (7.4-10.4); Platelet Count 277 thou/uL (130-400); RBC Distribution Width 12.7 % (11.5-14.5); Red Blood Cell (RBC) Count 3.21 mill/uL (4.70-6.10); White Blood Cell (WBC) Count 4.9 thou/uL (4.8-10.8)
--- NOTE | 2020-01-10 11:51 | CT ---
CT BRAIN NONCONTRAST: DATE: 01/10/2020 HISTORY: 64-year-old male with acute stroke: Left upper extremity and left lower extremity weakness, dysarthri a, and right facial droop. Dr. Mott verbally gave this stroke alert protocol CT report to Dr. Hernandez at 11:48 AM 01/10/2020 FINDINGS: There is no evidence of acute intra-axial or extra-axial hemorrhage. There is no midline shift or any other mass effect. There is no extra-axial fluid collection. There is no evidence of obstructive hydrocephalus. Calvarium is intact. IMPRESSION: No acute intracranial findings.
[2020-01-10 11:58] LABS: INR-International Normal Ratio 0.9; Prothrombin Time 12.3 sec (12.0-14.7)
[2020-01-10] MEDS ORDERED: Famotidine 20 MG TAB ONE (11:58)
[2020-01-10] MEDS ORDERED: methylPREDNISolone Sod Succ/PF 125 MG/2 ML VIAL ONE (11:58)
[2020-01-10] MEDS ORDERED: Famotidine/PF 20 mg/2ml Vial ONE (11:58)
[2020-01-10] MEDS ORDERED: diphenhydrAMINE 50 MG/ML VIAL ONE (11:58)
[2020-01-10 12:12] LABS: ALT (SGPT) 14 U/L (8-55); AST (SGOT) 11 U/L (5-34); Albumin 3.6 g/dL (3.4-4.8); Alkaline Phosphatase 90 U/L (40-110); Anion Gap 11 mmol/L (10-20); BUN (Urea Nitrogen) 20 mg/dL (8.4-25.7); Bilirubin, Total 0.3 mg/dL (0.2-1.2); CK (CPK) 82 U/L (30-200); Calc. Creatinine Clearance 181 mL/min (70-130); Calcium 8.5 mg/dL (7.8-10.44); Carbon Dioxide 26 mmol/L (23-31); Chloride 102 mmol/L (98-107); Estimated GFR-MDRD Greater than 90; Globulin 2.3 g/dL (2.4-3.5); Glucose 77 mg/dL (80-115); Potassium 4.3 mmol/L (3.5-5.1); Protein, Total 5.9 g/dL (5.8-8.1); Sodium 135 mmol/L (136-145)
--- NOTE | 2020-01-10 12:49 | CT ---
CT ANGIOGRAM NECK WITH CONTRAST CT ANGIOGRAM BRAIN WITH CONTRAST: DATE: 01/10/2020 HISTORY: 64-year-old male with acute stroke: Left upper and lower extremity weakness and dysarthria. Dr. Mott verbally gave this stroke alert protocol report by telephone to Dr. Hernandez at 12:46 PM 2019 TECHNIQUE: Rapid prepped premedication for history of allergy to iodinated IV contrast. After IV contrast injection, arterial bolus chasing technique scan performed from 3 cm inferior to ca clau to vertex of head. Coronal and sagittal 3-D MIP reconstructions. FINDINGS: Because of body habitus and elevated shoulders, especially the right, and streak artifact from dense contrast material in adjacent left subclavian and left brachiocephalic veins, there is poor evaluation of the proximal left common carotid artery and origin of left vertebral artery, and much o f the left subclavian artery. Partial visualization of elevated right hemidiaphragm and airspace densities in the right lower lobe abutting the elevated right hemidiaphragm, probably representing subsegmental atelectasis. Nonspecific diffuse groundglass haziness of all visualized portions of lungs. Mildly dilated esophagu s. Significant atherosclerotic calcification of left main, LAD, LCx, ramus intermedius, and RCA; aortic arch; multiple additional foci of major arteries in the neck, especially bilateral proximal internal carotid arteries, and bilateral carotid siphons. Bovine origin of left common carotid No high-grade stenosis of right common carotid, or cervical portions of left common carotid. Heavily calcified plaque at origin of right subclavian, causing indeterminate degree of stenosis. The mid and distal right subclavian artery are not stenotic. Limited visualization of proximal bilateral vertebral arteries, including lower neck, because of stre ak artifact mentioned above. No high-grade stenosis or occlusion identified in mid and upper cervical vertebrals. Atherosclerotic plaque causing multifocal stenosis of intracranial bilateral jorge tebral arteries, possibly high-grade proximally on the right. Basilar and P1 and P2 segments of bilateral forestry aide show no high-grade stenosis. Proximal bilateral superior cerebellar arteries visualized. No high-grade stenosis, thrombosis, or occlusion identified involving M1 segments of bilateral MCAs. A1 and A2 segments of bilateral ACAs within normal limits. Maximum of approximately 75% stenosis at origin of right internal carotid approximately 50% stenosis at origin of left internal carotid. IMPRESSION: 1) no M1 segment middle cerebral artery thrombosis, occlusion, or high-grade stenosis. 2. Extensive, multifocal atheromatous plaque in major arteries. 3. High-grade, 75% stenosis at origin of right internal carotid. 4. 50% stenosis at origin of left internal carotid.
[2020-01-10] MEDS: Sodium Chloride 0.9% 1,000 ML IV SCH (16:23)
[2020-01-10] MEDS: Tamsulosin HCl 0.4 MG CAP PO SCH (20:32)
[2020-01-10] MEDS: Montelukast Sodium 10 mg Tablet PO SCH (20:32)
[2020-01-10] MEDS: rOPINIRole HCl 2 MG TAB PO SCH (20:32)
--- NOTE | 2020-01-10 20:36 | CON ---
DATE OF CONSULTATION: HISTORY OF PRESENT ILLNESS: The patient is a 64-year-old gentleman with a history of coronary artery disease and TIAs, who presented with weakness and chest discomfort. The patient has a long history of coronary artery disease. He states he has had multiple stents placed. He was followed by Dr. Marie, who apparently placed several stents back three years ago. He subsequently had further stents placed about a year ago. The patient also has a long history of multiple TIAs. He presented to the emergency room when he became dizzy, felt like he was going to lost consciousness. The patient never completely passed out. He reports also having difficulty at times with his speech and often associated with dizziness. PAST MEDICAL HISTORY: 1. Coronary artery disease. 2. Hypertension. 3. Dyslipidemia. 4. COPD. 5. Sleep apnea. PAST SURGICAL HISTORY: Shoulder surgery and knee surgery. He has had a hip stimulator and a lithotripsy. MEDICATIONS: See nursing list. ALLERGIES: GABAPENTIN, LEVOFLOXACIN, PREGABALIN, AND IODINE. FAMILY HISTORY: Strong family history of heart disease. SOCIAL HISTORY: Nonsmoker. REVIEW OF SYSTEMS: Ten-point system otherwise unremarkable. PHYSICAL EXAMINATION: GENERAL: This is an obese gentleman, in no acute distress with a blood pressure 111/56. NECK: Showed no jugular venous distention. LUNGS: Clear to auscultation. HEART: Regular rate and rhythm. Normal S1 and S2. ABDOMEN: Distended. EXTREMITIES: Showed mild bilateral edema. VASCULAR: Radial pulse 2+. LABORATORY DATA: Sodium 135, potassium 4.3, chloride 102, bicarbonate 26, BUN 20, creatinine 0.75. BNP is 0.11. White blood cell count 4.9, hemoglobin 11.2, hematocrit 32.6, and platelets are 277. EKG Sinus bradycardia with first- degree AV block and right bundle-branch block. IMPRESSION: 1. Dizziness. 2. Angina. 3. History of transient ischemic attacks. 4. History of multiple percutaneous transluminal coronary angioplasty and stent placed. 5. Hypertension. 6. Dyslipidemia. 7. Obesity. This gentleman presents with marked dizziness. He has significant bradycardia. The patient, however, is on metoprolol. We would highly recommend discontinue this medication. I would also recommend that he discontinue lisinopril and Lasix. We will try to obtain records from his signal mechanic. We will monitor the patient on telemetry to see if he develops further this on telemetry. We would recommend medical therapy for his chronic angina. Job ID: [id number] KENNETH
[2020-01-11 04:59] LABS: Band 2 % (5-11); Hemoglobin 11.5 g/dL (14.0-18.0); Lymphocytes 21 % (21-51); MDiff Complete? YES; Mean Corpuscular HGB CONC 33.6 g/dL (32.0-36.0); Mean Corpuscular Hemoglobin 33.9 pg (27.0-31.0); Mean Platelet Volume 6.6 fL (7.4-10.4); Monocytes 5 % (0-10); Neutrophil 72 % (42-75); Platelet Count 279 thou/uL (130-400); Platelet Morphology Comment Appears Adequate; RBC Distribution Width 12.7 % (11.5-14.5); Red Blood Cell (RBC) Count 3.39 mill/uL (4.70-6.10); White Blood Cell (WBC) Count 4.5 thou/uL (4.8-10.8)
[2020-01-11 05:09] LABS: Anion Gap 11 mmol/L (10-20); BUN (Urea Nitrogen) 16 mg/dL (8.4-25.7); Calc. Creatinine Clearance 179 mL/min (70-130); Calcium 8.9 mg/dL (7.8-10.44); Carbon Dioxide 26 mmol/L (23-31); Chloride 103 mmol/L (98-107); Estimated GFR-MDRD Greater than 90; Glucose 119 mg/dL (80-115); Potassium 4.2 mmol/L (3.5-5.1); Sodium 136 mmol/L (136-145)
[2020-01-11] MEDS: Mometasone 100 MCG/Formoterol 5 MCG 120 PUFF INHALER INH SCH ×2 (06:38→18:13)
[2020-01-11] MEDS: PROVENTIL INHALER 6.7 G (200 INHALATIONS) INH PRN (06:40)
[2020-01-11] MEDS: Famotidine 20 MG TAB PO SCH ×2 (07:53→20:08)
[2020-01-11] MEDS: Aspirin 325 MG TAB PO SCH (07:53)
[2020-01-11] MEDS: Citalopram 20 MG TAB PO SCH (07:53)
[2020-01-11] MEDS: Potassium Chloride 20 MEQ TAB PO SCH (07:54)
[2020-01-11] MEDS: Fish Oil 1,000 MG CAP PO SCH (07:54)
[2020-01-11] MEDS: AMOXicillin 250 MG CAP PO SCH (08:40)
[2020-01-11] MEDS: Pregabalin 25 MG CAP PO SCH ×2 (08:41→20:09)
[2020-01-11] MEDS: Fluticasone Propionate Nasal Spray 16 gm Bottle NASAL SCH (08:43)
[2020-01-11] MEDS: Sodium Chloride 0.9% 1,000 ML IV SCH (11:24)
[2020-01-11] MEDS ORDERED: Polyethylene Glycol 3350 17 GM Packet PO PRN (11:27)
--- NOTE | 2020-01-11 12:16 | PDOC.HOSPP ---
- Subjective Encounter Date: 01/11/20 Encounter Time: 10:45 Subjective: Patient seen and examined for gen weakness. c/o intermittent dizziness. No other complaints. No overnight events - Objective Vital Signs & Weight: Vital Signs (12 hours) Temp Pulse Resp BP Pulse Ox 01/11/20 11:03 98.1 F 55 L 18 147/64 H 96 01/11/20 08:45 97 01/11/20 07:45 182/77 H 01/11/20 07:30 97.8 F 64 18 178/77 H 97 01/11/20 06:41 95 01/11/20 06:40 61 20 95 01/11/20 06:38 61 20 95 01/11/20 03:35 97.7 F 50 L 20 133/82 96 Weight Weight 271 lb 9.6 oz I&O: 01/10/20 01/11/20 01/12/20 06:59 06:59 06:59 Intake Total 880 1090 920 Output Total 2250 3900 1500 Balance -1370 -2810 -580 Result Diagrams: 01/11/20 04:32 01/11/20 04:32 EKG Reviewed by me: Yes (Tele SR) Hospitalist ROS - Review of Systems Respiratory: denies: cough, dry, shortness of breath, hemoptysis, SOB with excertion, pleuritic pain, sputum, wheezing, other Cardiovascular: denies: chest pain, palpitations, orthopnea, paroxysmal noc. dyspnea, edema, light headedness, other - Medication Medications: Active Medications Generic Name Dose Route Start Last Admin Trade Name Freq PRN Reason Stop Dose Admin Albuterol Sulfate 2 puff 01/09/20 18:15 01/11/20 06:40 Proventil Hfa INH 2 puff Q4H PRN Administration shortness of breath Amoxicillin 500 mg 01/11/20 09:00 01/11/20 08:40 Amoxil PO 500 mg QAM LINDSEY Administration Aspirin 325 mg 01/10/20 09:00 01/11/20 07:53 Aspirin PO 325 mg QAM LINDSEY Administration Cholecalciferol 5,000 units 01/10/20 09:00 01/11/20 07:53 Vitamin D3 PO 5,000 units DAILY LINDSEY Administration Citalopram Hydrobromide 40 mg 01/10/20 09:00 01/11/20 07:53 Celexa PO 40 mg DAILY LINDSEY Administration Famotidine 20 mg 01/09/20 21:00 01/11/20 07:53 Pepcid PO 20 mg BID LINDSEY Administration Fish Oil 1,000 mg 01/10/20 09:00 01/11/20 07:54 Fish Oil PO 1,000 mg DAILY LINDSEY Administration Fluticasone Propionate 0 gm 01/10/20 09:00 01/11/20 08:43 Flonase Nasal [place] NASAL 1 spr DAILY LINDSEY Administration Hydralazine HCl 10 mg 01/09/20 18:15 01/10/20 16:25 Apresoline SLOW IVP 10 mg Q4H PRN Administration SBP > 180 and HR < 70 Isosorbide Mononitrate 60 mg 01/10/20 09:00 01/11/20 07:54 Imdur PO 60 mg DAILY LINDSEY Administration Mometasone Furoate/Formoterol Fumar 2 puff 01/10/20 06:30 01/11/20 06:38 Dulera 100 Mcg/5 Mcg Inhaler INH 2 puff BID-RT LINDSEY Administration Montelukast Sodium 10 mg 01/09/20 21:00 01/10/20 20:32 Singulair PO 10 mg HS LINDSEY Administration Potassium Chloride 20 meq 01/09/20 21:00 01/11/20 07:54 K-Dur PO 20 meq BID LINDSEY Administration Pregabalin 25 mg 01/09/20 21:00 01/11/20 08:41 Lyrica PO 25 mg BID LINDSEY Administration Ranolazine 1,000 mg 01/09/20 21:00 01/11/20 07:54 Ranexa PO 1,000 mg BID LINDSEY Administration Ropinirole HCl 4 mg 01/09/20 21:00 01/10/20 20:32 Requip PO 4 mg QPM LINDSEY Administration Tamsulosin HCl 0.4 mg 01/09/20 21:00 01/10/20 20:32 Flomax PO 0.4 mg HS LINDSEY Administration - Exam General Appearance: NAD Neck: supple, no JVD Heart: RRR, no gallops Respiratory: no wheezes, no ronchi Gastrointestinal: non-tender, non-distended, no guarding, no rigidity Extremities: no cyanosis, no clubbing Hosp A/P - Plan DVT proph w/SCDs Gen weakness Dizziness/Near syncope/symptomatic bradycardia CARON/hypotension prob due to diuretics B/L Carotid stenosis CAD s/p stent Obesity BMI 37.9 HTN BRAD Chronic swallow dysfunction HLD Chronic pain syndrome BPH RLD Chronic anemia prob due to nutritional def PLAN: DC IVF Metoprolol dced Cardio/CV input appreciated Cont ASA/Plavix Diuretics on hold DC oral Potassium Cont other meds as above PT eval
[2020-01-11] MEDS: Nitroglycerin 2% Ointment 1 INCH/1 GM Packet TOP SCH ×2 (15:03→20:16)
[2020-01-11] MEDS: Acetaminophen 500 MG TAB PO PRN ×2 (15:06→23:08)
[2020-01-11] MEDS: Polyethylene Glycol 3350 17 GM Packet PO SCH (20:07)
[2020-01-11] MEDS: Lisinopril 5 MG TAB PO SCH (20:07)
[2020-01-11] MEDS: Montelukast Sodium 10 mg Tablet PO SCH (20:08)
[2020-01-11] MEDS: rOPINIRole HCl 2 MG TAB PO SCH (20:08)
[2020-01-11] MEDS: Atorvastatin Calcium 40 MG TAB PO SCH (20:09)
[2020-01-11] MEDS: Tamsulosin HCl 0.4 MG CAP PO SCH (20:09)
[2020-01-12] MEDS: Nitroglycerin 2% Ointment 1 INCH/1 GM Packet TOP SCH ×5 (04:33→23:23)
[2020-01-12 04:40] LABS: Anion Gap 12 mmol/L (10-20); BUN (Urea Nitrogen) 17 mg/dL (8.4-25.7); Calc. Creatinine Clearance 191 mL/min (70-130); Calcium 8.2 mg/dL (7.8-10.44); Carbon Dioxide 25 mmol/L (23-31); Chloride 101 mmol/L (98-107); Estimated GFR-MDRD Greater than 90; Glucose 93 mg/dL (80-115); Magnesium 1.8 mg/dL (1.6-2.6); Sodium 134 mmol/L (136-145)
--- NOTE | 2020-01-12 04:47 | CON ---
DATE OF CONSULTATION: HISTORY OF PRESENT ILLNESS: This is a 64-year-old gentleman followed by Dr. Edilberto Dawn of the [facility] as well as multiple independent practitioners. He was admitted a couple of days ago after some dizzy and lightheaded spells and was felt to be bradycardic and [id number] hypotension in the ER, treated with IV fluids. His creatinine was mildly elevated as well, suggesting dehydration, which all prompted admission to the hospital. Since admission, he had an episode of perhaps some mild lethargy, headache, and perhaps some difficulties speaking, although all of this is quite hazy when talking to the patient. He underwent a CT angiography, which was interpreted by Radiology as 75% right internal carotid artery stenosis with fairly heavy plaque burden in his vessels in general. There was some soft plaque also at the right carotid bifurcation. Brain CT scan was also done showing no acute findings. The patient's symptoms all resolved and today he is complaining of some chest pressure, some difficulty swallowing, which is a chronic intermittent problem, and headache. The patient states he has had 4 previous TIAs with perhaps some mild right-sided weakness, perhaps some speech difficulty, and usually associated with headache as well. PAST MEDICAL HISTORY: Coronary artery disease, hypertension, dyslipidemia, chronic pain syndrome, kidney stones, and reflex sympathetic dystrophy. 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 He has had previous lower back surgery in the remote past and multiple kidney stone procedures. He also has what sounds like esophageal stricture, which has been dilated in the past by Dr. Logan, and then perhaps a newer physician, although he does not remember the name. He states he is scheduled for some sort of dilatation in the [place] area with a surgeon on standby next month. The patient has had coronary stenting to a right posterolateral by Dr. Cotto, and prior to that, has had stenting in the LAD, ramus, circumflex and right coronary systems by Dr. Marie. The patient's ejection fraction earlier this year was 75% by stress test, which preceded the stenting of his right posterolateral. MEDICATIONS: His medications prior to admission are innumerable and include, 1. Allopurinol. 2. Armodafinil. 3. Aspirin. 4. Atorvastatin. 5. Vitamin D3. 6. Celexa. 7. Plavix. 8. Flexeril. 9. Flonase. 10. Lasix. 11. Imdur. 12. Lisinopril. 13. Antivert. 14. Zaroxolyn. 15. Metoprolol. 16. Potassium. 17. Albuterol. 18. Lyrica. 19. Ranexa. 20. Flomax. 21. Ropinirole. 22. Zofran. 23. Bentyl. 24. Advair. 25. Amoxicillin. ALLERGIES: HE REPORTS ALLERGIES TO IODINE, LEVOFLOXACIN, GABAPENTIN, PREGABALIN AND MORE. 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 He is nonsmoker and nondrinker. PHYSICAL EXAMINATION: GENERAL: On examination, he is alert, cooperative gentleman, in no distress. VITAL SIGNS: Height 5 feet 11 inches, weight 271, blood pressure is running 178/77 with a heart rate of 64. NECK: He has obese short neck with no carotid bruits. LUNGS: Clear to auscultation. CARDIAC: Regular rate and rhythm. No murmurs. ABDOMEN: Soft and nontender. Obese. EXTREMITIES: He has a palpable pedal pulse in both feet with some varicosities that are superficial in both lower legs and some brownish pigmentation on the right lower leg with no edema. ASSESSMENT AND PLAN: At this time, it is not clear to me that this was a hemispheric transient ischemic attack and he does have [id number] carotid disease bilaterally, but I do not think any intervention is indicated at this time. His coronary status is probably okay given his recent cardiac catheterization and I suspect he is not actually having anginal symptoms. He evidently needs an esophageal dilatation and is regurgitating pills during the recent months and so this is to be dealt with next month. I think I would like to see him in the office in about 6 weeks and I will repeat his carotid ultrasound at that time to better delineate whether the right-sided stenosis is severe enough to justify intervention. Job ID: [id number]
[2020-01-12] MEDS: Mometasone 100 MCG/Formoterol 5 MCG 120 PUFF INHALER INH SCH ×2 (07:28→18:41)
[2020-01-12] MEDS: PROVENTIL INHALER 6.7 G (200 INHALATIONS) INH PRN (07:30)
[2020-01-12] MEDS ORDERED: Magnesium 2 GM/50 ML 2 GM in Premix Bag 1 BAG IVPB SCH (08:15)
[2020-01-12] MEDS ORDERED: Multivit, Therapeutic 1 TAB PO SCH (09:00)
[2020-01-12] MEDS: Aspirin 325 MG TAB PO SCH (09:02)
[2020-01-12] MEDS: AMOXicillin 250 MG CAP PO SCH (09:02)
[2020-01-12] MEDS: Fish Oil 1,000 MG CAP PO SCH (09:03)
[2020-01-12] MEDS: Citalopram 20 MG TAB PO SCH (09:03)
[2020-01-12] MEDS: Clopidogrel Bisulfate 75 MG TAB PO SCH (09:03)
[2020-01-12] MEDS: Famotidine 20 MG TAB PO SCH ×4 (09:03→23:23)
[2020-01-12] MEDS: Lisinopril 5 MG TAB PO SCH ×2 (09:03→20:48)
[2020-01-12] MEDS: Pregabalin 25 MG CAP PO SCH ×2 (09:04→20:46)
[2020-01-12] MEDS: Saccharomyces boulardii 250 MG CAP PO SCH (09:04)
[2020-01-12] MEDS: Fluticasone Propionate Nasal Spray 16 gm Bottle NASAL SCH (09:20)
[2020-01-12] MEDS ORDERED: Communication Order-Pharmacy FS SCH (09:30)
[2020-01-12] MEDS ORDERED: Lisinopril 5 MG TAB PO SCH (09:45)
[2020-01-12] MEDS: predniSONE 20 MG TAB PO SCH ×3 (11:40→23:23)
[2020-01-12] MEDS: diphenhydrAMINE 25 MG CAP PO SCH ×3 (11:40→23:23)
[2020-01-12] MEDS: Acetaminophen 500 MG TAB PO PRN (11:41)
[2020-01-12] MEDS ORDERED: CIMETIDINE HCL 300 MG/5 ML PO SCH (12:00)
--- NOTE | 2020-01-12 12:18 | EKG ---
Test Reason : Blood Pressure : / mmHG Vent. Rate : 051 BPM Atrial Rate : 051 BPM P-R Int : 210 ms QRS Dur : 162 ms QT Int : 502 ms P-R-T Axes : 032 001 -02 degrees QTc Int : 462 ms Sinus bradycardia with 1st degree A-V block Right bundle branch block Abnormal ECG When compared with ECG of 10-JAN-2020 10:08, Right bundle branch block is now Present Confirmed by PRAMOD HOUSE, DR. Serra ([id number]) on 01/12/2020 12:18:06 PM Referred By: LOLA Confirmed By:DR. Ponce BENAVIDEZ MD
[2020-01-12] MEDS ORDERED: Calcium Carbonate 500 MG ChewTAB PO PRN (13:56)
[2020-01-12] MEDS ORDERED: Mag-Al 1200 mg/1200 mg/30 ML UDCUP PO PRN (13:56)
--- NOTE | 2020-01-12 13:57 | PDOC.HOSPP ---
- Subjective Encounter Date: 01/12/20 Encounter Time: 08:00 Subjective: Patient seen and examined for Gene weakness/Near syncope. Intermittent Chest tightness +. No other complaints. No overnight events - Objective Vital Signs & Weight: Vital Signs (12 hours) Temp Pulse Pulse Pulse Resp BP BP 01/12/20 11:30 97.8 F 72 18 01/12/20 10:53 70 71 158/67 H 165/76 H 01/12/20 07:31 01/12/20 07:30 48 L 16 01/12/20 07:28 48 L 16 01/12/20 07:17 97.5 F L 47 L 18 01/12/20 03:46 97.5 F L 44 L 18 BP BP BP Pulse Ox Pulse Ox 01/12/20 11:30 123/60 131/61 149/66 H 92 L 01/12/20 10:53 96 01/12/20 07:31 96 01/12/20 07:30 96 01/12/20 07:28 96 01/12/20 07:17 181/76 H 97 01/12/20 03:46 133/60 95 Weight Weight 272 lb 3.2 oz I&O: 01/11/20 01/12/20 01/13/20 06:59 06:59 06:59 Intake Total 1090 2440 Output Total 3900 3050 Balance -2810 -610 Result Diagrams: 01/11/20 04:32 01/12/20 03:40 EKG Reviewed by me: Yes (Tele SB) Hospitalist ROS - Review of Systems Respiratory: denies: cough, dry, shortness of breath, hemoptysis, SOB with excertion, pleuritic pain, sputum, wheezing, other Cardiovascular: reports: chest pain, light headedness. denies: palpitations, orthopnea, paroxysmal noc. dyspnea, edema, other Gastrointestinal: denies: nausea, vomiting, abdominal pain, diarrhea, constipation, melena, hematochezia, other - Medication Medications: Active Medications Generic Name Dose Route Start Last Admin Trade Name Freq PRN Reason Stop Dose Admin Acetaminophen 1,000 mg 01/09/20 18:15 01/12/20 11:41 Tylenol PO 1,000 mg Q6H PRN Administration Mild Pain (1-3) Albuterol Sulfate 2 puff 01/09/20 18:01/12/20 07:30 Proventil Hfa INH 2 puff Q4H PRN Administration shortness of breath Amoxicillin 500 mg 01/11/20 09:00 01/12/20 09:02 Amoxil PO 500 mg QAM LINDSEY Administration Aspirin 325 mg 01/10/20 09:00 01/12/20 09:02 Aspirin PO 325 mg QAM LINDSEY Administration Atorvastatin Calcium 40 mg 01/11/20 21:00 01/11/20 20:09 Lipitor PO 40 mg HS LINDSEY Administration Cholecalciferol 5,000 units 01/10/20 09:00 01/12/20 09:02 Vitamin D3 PO 5,000 units DAILY LINDSEY Administration Citalopram Hydrobromide 40 mg 01/10/20 09:00 01/12/20 09:03 Celexa PO 40 mg DAILY LINDSEY Administration Clopidogrel Bisulfate 75 mg 01/12/20 09:00 01/12/20 09:03 Plavix PO 75 mg DAILY LINDSEY Administration Diphenhydramine HCl 25 mg 01/12/20 12:00 01/12/20 11:40 Benadryl PO 01/13/20 08:00 25 mg 0600,1200,1800,2359 LINDSEY Administration Famotidine 20 mg 01/12/20 12:00 01/12/20 11:41 Pepcid PO 01/13/20 01:00 20 mg 1200,1800,2359 LINDSEY Administration Fish Oil 1,000 mg 01/10/20 09:00 01/12/20 09:03 Fish Oil PO 1,000 mg DAILY LINDSEY Administration Fluticasone Propionate 0 gm 01/10/20 09:00 01/12/20 09:20 Flonase Nasal [place] NASAL 1 spr DAILY LINDSEY Administration Hydralazine HCl 10 mg 01/09/20 18:15 01/10/20 16:25 Apresoline SLOW IVP 10 mg Q4H PRN Administration SBP > 180 and HR < 70 Isosorbide Mononitrate 60 mg 01/10/20 09:00 01/12/20 09:03 Imdur PO 60 mg DAILY LINDSEY Administration Mometasone Furoate/Formoterol Fumar 2 puff 01/10/20 06:30 01/12/20 07:28 Dulera 100 Mcg/5 Mcg Inhaler INH 2 puff BID-RT LINDSEY Administration Montelukast Sodium 10 mg 01/09/20 21:00 01/11/20 20:08 Singulair PO 10 mg HS LINDSEY Administration Nitroglycerin 1 inch 01/12/20 06:00 01/12/20 11:40 Nitro-Bid 2% Ointment TOP 1 inch Q6HR LINDSEY Administration Polyethylene Glycol 17 gm 01/11/20 21:00 01/11/20 20:07 Miralax PO 17 gm HS ILNDSEY Administration Prednisone 20 mg 01/12/20 12:00 01/12/20 11:40 Prednisone PO 01/13/20 08:00 20 mg 0600,1200,1800,2359 LINDSEY Administration Pregabalin 25 mg 01/09/20 21:00 01/12/20 09:04 Lyrica PO 25 mg BID LINDSEY Administration Ranolazine 1,000 mg 01/09/20 21:00 01/12/20 09:04 Ranexa PO 1,000 mg BID LINDSEY Administration Ropinirole HCl 4 mg 01/09/20 21:00 01/11/20 20:08 Requip PO 4 mg QPM LINDSEY Administration Saccharomyces Boulardii 250 mg 01/12/20 09:00 01/12/20 09:04 Florastor PO 250 mg DAILY LINDSEY Administration Tamsulosin HCl 0.4 mg 01/09/20 21:00 01/11/20 20:09 Flomax PO 0.4 mg HS LINDSEY Administration - Exam General Appearance: NAD Heart: RRR, no rubs Heart - other findings: bradycardia Respiratory: no wheezes, no rales Gastrointestinal: soft, non-tender, non-distended Extremities: no cyanosis, no clubbing Neurological: no new deficit Psychiatric: normal affect, A&O x 3 Hosp A/P - Plan DVT proph w/SCDs Gen weakness Dizziness/Near syncope/symptomatic bradycardia Chest pain CARON/hypotension prob due to diuretics Hyponatremia/Hypomagnesemia B/L Carotid stenosis CAD s/p stent Obesity BMI 37.9 HTN BRAD Chronic swallow dysfunction HLD Chronic pain syndrome BPH RLD Chronic anemia prob due to nutritional def Iodine allergy PLAN: Cont Nitro patch Replace Magnesium Lisinopril dose increased Metoprolol dced Cont ASA/Plavix Diuretics/Potassium on hold Cont other meds as above AM labs
[2020-01-12] MEDS: rOPINIRole HCl 2 MG TAB PO SCH (20:46)
[2020-01-12] MEDS: Atorvastatin Calcium 40 MG TAB PO SCH (20:47)
[2020-01-12] MEDS: Montelukast Sodium 10 mg Tablet PO SCH (20:48)
[2020-01-12] MEDS: Tamsulosin HCl 0.4 MG CAP PO SCH (20:48)
[2020-01-12] MEDS: Polyethylene Glycol 3350 17 GM Packet PO SCH (20:49)
[2020-01-13 04:29] LABS: #Monocytes 0.2 thou/uL (0.11-0.59); %Eosinophils 0.2 % (0.0-10.0); %Lymphocytes 15.3 % (21.0-51.0); %Monocytes 3.8 % (0.0-10.0); %Neutrophils 80.8 % (42.0-75.0); Hemoglobin 11.5 g/dL (14.0-18.0); Mean Corpuscular HGB CONC 33.6 g/dL (32.0-36.0); Mean Platelet Volume 6.6 fL (7.4-10.4); Platelet Count 289 thou/uL (130-400); RBC Distribution Width 12.6 % (11.5-14.5); White Blood Cell (WBC) Count 6.2 thou/uL (4.8-10.8)
[2020-01-13 04:54] LABS: Anion Gap 11 mmol/L (10-20); BUN (Urea Nitrogen) 16 mg/dL (8.4-25.7); Calc. Creatinine Clearance 200 mL/min (70-130); Calcium 8.5 mg/dL (7.8-10.44); Carbon Dioxide 25 mmol/L (23-31); Chloride 101 mmol/L (98-107); Estimated GFR-MDRD Greater than 90; Glucose 116 mg/dL (80-115); Potassium 4.2 mmol/L (3.5-5.1); Sodium 133 mmol/L (136-145)
[2020-01-13] MEDS: predniSONE 20 MG TAB PO SCH (06:07)
[2020-01-13] MEDS: diphenhydrAMINE 25 MG CAP PO SCH (06:08)
[2020-01-13] MEDS: Nitroglycerin 2% Ointment 1 INCH/1 GM Packet TOP SCH ×4 (06:08→23:53)
[2020-01-13] MEDS: Aspirin 325 MG TAB PO SCH (06:09)
[2020-01-13] MEDS: Lisinopril 5 MG TAB PO SCH ×2 (06:09→20:31)
[2020-01-13] MEDS: Fish Oil 1,000 MG CAP PO SCH (06:10)
[2020-01-13] MEDS: Saccharomyces boulardii 250 MG CAP PO SCH (06:10)
[2020-01-13] MEDS: Citalopram 20 MG TAB PO SCH (06:11)
[2020-01-13] MEDS: Pregabalin 25 MG CAP PO SCH ×2 (06:12→20:32)
[2020-01-13] MEDS: Mometasone 100 MCG/Formoterol 5 MCG 120 PUFF INHALER INH SCH ×2 (07:24→19:00)
[2020-01-13] MEDS: Fluticasone Propionate Nasal Spray 16 gm Bottle NASAL SCH (08:59)
[2020-01-13] MEDS ORDERED: Iopamidol 370 76% 100 ML VIAL ONE (09:15)
[2020-01-13] MEDS ORDERED: Lidocaine 1% (PF) 30 ML VIAL ONE (10:07)
[2020-01-13] MEDS ORDERED: Midazolam HCl 2 mg/2 ml Vial ONE (11:04)
[2020-01-13] MEDS ORDERED: Heparin 10,000 UNITS/1 ML VIAL ONE (11:33)
[2020-01-13] MEDS ORDERED: Clopidogrel Bisulfate 300 MG TAB ONE (11:33)
[2020-01-13] MEDS ORDERED: Fentanyl 100 MCG/2 ML VIAL ONE (11:51)
[2020-01-13] MEDS ORDERED: hydrALAZINE 20 MG/ML VIAL ONE (12:06)
[2020-01-13] MEDS: AMOXicillin 250 MG CAP PO SCH (13:32)
[2020-01-13] MEDS: Clopidogrel Bisulfate 75 MG TAB PO SCH (13:32)
[2020-01-13] MEDS: Sodium Chloride 0.9% 1,000 ML IV SCH ×2 (13:32→20:20)
--- NOTE | 2020-01-13 16:26 | EKG ---
Test Reason : Blood Pressure : / mmHG Vent. Rate : 057 BPM Atrial Rate : 057 BPM P-R Int : 204 ms QRS Dur : 158 ms QT Int : 488 ms P-R-T Axes : 023 005 -11 degrees QTc Int : 474 ms Sinus bradycardia Right bundle branch block Abnormal ECG When compared with ECG of 10-JAN-2020 13:07, T wave inversion more evident in Anterior leads Confirmed by PRAMOD HOUSE, DR. Serra ([id number]) on 01/13/2020 4:25:32 PM Referred By: ROBI Confirmed By:DR. Ponce BENAVIDEZ MD
[2020-01-13] MEDS: Polyethylene Glycol 3350 17 GM Packet PO SCH (20:30)
[2020-01-13] MEDS: Montelukast Sodium 10 mg Tablet PO SCH (20:31)
[2020-01-13] MEDS: rOPINIRole HCl 2 MG TAB PO SCH (20:31)
[2020-01-13] MEDS: Atorvastatin Calcium 40 MG TAB PO SCH (20:32)
[2020-01-13] MEDS: Tamsulosin HCl 0.4 MG CAP PO SCH (20:32)
[2020-01-13] MEDS: Acetaminophen 500 MG TAB PO PRN (20:33)
--- NOTE | 2020-01-13 21:15 | EKG ---
Test Reason : POST STENT Blood Pressure : / mmHG Vent. Rate : 056 BPM Atrial Rate : 056 BPM P-R Int : 210 ms QRS Dur : 156 ms QT Int : 510 ms P-R-T Axes : 021 -06 -04 degrees QTc Int : 492 ms Sinus bradycardia with 1st degree A-V block Right bundle branch block T wave abnormality, consider lateral ischemia Abnormal ECG When compared with ECG of 11-JAN-2020 07:54, (Unconfirmed) No significant change was found Confirmed by Jessica SOLORIO ([id number]) on 01/13/2020 9:14:58 PM Referred By: NATALIE Confirmed By:Jessica SOLORIO
[2020-01-14] MEDS: Nitroglycerin 2% Ointment 1 INCH/1 GM Packet TOP SCH (05:03)
[2020-01-14 05:10] LABS: #Lymphocytes 1.7 thou/uL (1.20-3.40); #Monocytes 0.5 thou/uL (0.11-0.59); #Neutrophils 2.9 thou/uL (1.40-6.50); %Basophils 0.2 % (0.0-1.0); %Eosinophils 0.9 % (0.0-10.0); %Lymphocytes 33.5 % (21.0-51.0); %Monocytes 9.2 % (0.0-10.0); %Neutrophils 56.1 % (42.0-75.0); Hemoglobin 11.2 g/dL (14.0-18.0); Mean Corpuscular HGB CONC 33.8 g/dL (32.0-36.0); Mean Corpuscular Hemoglobin 34.4 pg (27.0-31.0); Mean Platelet Volume 6.3 fL (7.4-10.4); Platelet Count 267 thou/uL (130-400); RBC Distribution Width 12.9 % (11.5-14.5); Red Blood Cell (RBC) Count 3.27 mill/uL (4.70-6.10); White Blood Cell (WBC) Count 5.1 thou/uL (4.8-10.8)
[2020-01-14 05:35] LABS: ALT (SGPT) 18 U/L (8-55); AST (SGOT) 12 U/L (5-34); Albumin 3.6 g/dL (3.4-4.8); Alkaline Phosphatase 84 U/L (40-110); Anion Gap 11 mmol/L (10-20); BUN (Urea Nitrogen) 20 mg/dL (8.4-25.7); Bilirubin, Total 0.4 mg/dL (0.2-1.2); Calc. Creatinine Clearance 183 mL/min (70-130); Calcium 8.4 mg/dL (7.8-10.44); Carbon Dioxide 25 mmol/L (23-31); Chloride 104 mmol/L (98-107); Estimated GFR-MDRD Greater than 90; Globulin 2.2 g/dL (2.4-3.5); Glucose 103 mg/dL (80-115); Potassium 3.6 mmol/L (3.5-5.1); Protein, Total 5.8 g/dL (5.8-8.1); Sodium 136 mmol/L (136-145)
[2020-01-14 07:06] VITALS: TEMP 97.6
--- NOTE | 2020-01-14 07:20 | PDOC.HOSPP ---
- Subjective Encounter Date: 01/13/20 Encounter Time: 09:00 Subjective: Patient seen and examined for CP/Gen weakness. Intermittent chest tightness. No other complaints. No overnight events - Objective Vital Signs & Weight: Vital Signs (12 hours) Temp Pulse Resp BP BP BP Pulse Ox 01/14/20 07:01 97.6 F 50 L 18 152/67 H 97 01/14/20 03:38 98.3 F 54 L 20 115/55 L 93 L 01/13/20 20:31 55 L 149/66 H 01/13/20 20:19 98.4 F 55 L 18 149/66 H 96 Weight Weight 272 lb 4.8 oz I&O: 01/13/20 01/14/20 01/15/20 06:59 06:59 06:59 Intake Total 1360 980 Output Total 1320 100 Balance 40 880 Result Diagrams: 01/14/20 05:01 01/14/20 05:01 EKG Reviewed by me: Yes (Tele SB) Hospitalist ROS - Review of Systems Respiratory: denies: cough, dry, shortness of breath, hemoptysis, SOB with excertion, pleuritic pain, sputum, wheezing, other Cardiovascular: denies: chest pain, palpitations, orthopnea, paroxysmal noc. dyspnea, edema, light headedness, other - Medication Medications: Active Medications Generic Name Dose Route Start Last Admin Trade Name Freq PRN Reason Stop Dose Admin Acetaminophen 1,000 mg 01/09/20 18:15 01/13/20 20:33 Tylenol PO 1,000 mg Q6H PRN Administration Mild Pain (1-3) Albuterol Sulfate 2 puff 01/09/20 18:15 01/12/20 07:30 Proventil Hfa INH 2 puff Q4H PRN Administration shortness of breath Amoxicillin 500 mg 01/11/20 09:00 01/13/20 13:32 Amoxil PO 500 mg QAM LINDSEY Administration Aspirin 325 mg 01/10/20 09:00 01/13/20 06:09 Aspirin PO 325 mg QAM LINDSEY Administration Atorvastatin Calcium 40 mg 01/11/20 21:00 01/13/20 20:32 Lipitor PO 40 mg HS LINDSEY Administration Calcium Carbonate 1,000 mg 01/12/20 13:56 01/13/20 13:32 Tums PO 1,000 mg Q4H PRN Administration Heartburn or Indigestion Cholecalciferol 5,000 units 01/10/20 09:00 01/13/20 06:08 Vitamin D3 PO 5,000 units DAILY LINDSEY Administration Citalopram Hydrobromide 40 mg 01/10/20 09:00 01/13/20 06:11 Celexa PO 40 mg DAILY LINDSEY Administration Clopidogrel Bisulfate 75 mg 01/12/20 09:00 01/13/20 13:32 Plavix PO 75 mg DAILY LINDSEY Administration Fish Oil 1,000 mg 01/10/20 09:00 01/13/20 06:10 Fish Oil PO 1,000 mg DAILY LINDSEY Administration Fluticasone Propionate 0 gm 01/10/20 09:00 01/13/20 08:59 Flonase Nasal [place] NASAL Not Given DAILY LINDSEY Hydralazine HCl 10 mg 01/09/20 18:15 01/10/20 16:25 Apresoline SLOW IVP 10 mg Q4H PRN Administration SBP > 180 and HR < 70 Sodium Chloride 1,000 mls @ 100 mls/hr 01/13/20 12:00 01/13/20 20:20 Normal Saline 0.9% IV 1,000 mls .Q10H LINDSEY Administration Isosorbide Mononitrate 60 mg 01/10/20 09:00 01/13/20 06:10 Imdur PO 60 mg DAILY LINDSEY Administration Lisinopril 10 mg 01/12/20 21:00 01/13/20 20:31 Zestril PO 10 mg BID LINDSEY Administration Mometasone Furoate/Formoterol Fumar 2 puff 01/10/20 06:30 01/13/20 19:00 Dulera 100 Mcg/5 Mcg Inhaler INH 2 puff BID-RT LINDSEY Administration Montelukast Sodium 10 mg 01/09/20 21:00 01/13/20 20:31 Singulair PO 10 mg HS LINDSEY Administration Nitroglycerin 1 inch 01/12/20 06:00 01/14/20 05:03 Nitro-Bid 2% Ointment TOP 1 inch Q6HR LINDSEY Administration Polyethylene Glycol 17 gm 01/11/20 21:00 01/13/20 20:30 Miralax PO 17 gm HS LINDSEY Administration Pregabalin 25 mg 01/09/20 21:00 01/13/20 20:32 Lyrica PO 25 mg BID LINDSEY Administration Ranolazine 1,000 mg 01/09/20 21:00 01/13/20 20:31 Ranexa PO 1,000 mg BID LINDSEY Administration Ropinirole HCl 4 mg 01/09/20 21:00 01/13/20 20:31 Requip PO 4 mg QPM LINDSEY Administration Saccharomyces Boulardii 250 mg 01/12/20 09:00 01/13/20 06:10 Florastor PO 250 mg DAILY LINDSEY Administration Tamsulosin HCl 0.4 mg 01/09/20 21:00 01/13/20 20:32 Flomax PO 0.4 mg HS LINDSEY Administration - Exam General Appearance: NAD Heart: RRR, no gallops Respiratory: no wheezes, no ronchi Gastrointestinal: non-tender, non-distended, normal bowel sounds Extremities: no cyanosis, no clubbing Hosp A/P - Plan DVT proph w/SCDs Gen weakness Dizziness/Near syncope/symptomatic bradycardia Chest pain CARON/hypotension prob due to diuretics Hyponatremia/Hypomagnesemia B/L Carotid stenosis CAD s/p stent Obesity BMI 37.9 HTN BRAD Chronic swallow dysfunction HLD Chronic pain syndrome BPH Chronic anemia prob due to nutritional def Iodine allergy Chronic tinnitus/hearing problems - followed by ENT PLAN: Cath today Cont Nitro patch Cont Lisinopril/ASA/Plavix Metoprolol dced Diuretics/Potassium on hold Cont other meds as above
[2020-01-14] MEDS: Mometasone 100 MCG/Formoterol 5 MCG 120 PUFF INHALER INH SCH (07:29)
[2020-01-14] MEDS: Sodium Chloride 0.9% 1,000 ML IV SCH (07:58)
[2020-01-14] MEDS: AMOXicillin 250 MG CAP PO SCH (08:16)
[2020-01-14] MEDS: Citalopram 20 MG TAB PO SCH (08:17)
[2020-01-14] MEDS: Saccharomyces boulardii 250 MG CAP PO SCH (08:17)
[2020-01-14] MEDS: Clopidogrel Bisulfate 75 MG TAB PO SCH (08:17)
[2020-01-14] MEDS: Fish Oil 1,000 MG CAP PO SCH (08:17)
[2020-01-14] MEDS: Aspirin 325 MG TAB PO SCH (08:17)
[2020-01-14] MEDS: Lisinopril 5 MG TAB PO SCH (08:17)
[2020-01-14] MEDS: Fluticasone Propionate Nasal Spray 16 gm Bottle NASAL SCH (08:22)
[2020-01-14] MEDS: Pregabalin 25 MG CAP PO SCH (09:08)
[2020-01-14 10:56] VITALS: BP 157/77
--- NOTE | 2020-01-14 12:31 | DIS ---
DATE OF ADMISSION: 01/10/2020 DATE OF DISCHARGE: 01/14/2020 DISCHARGE DISPOSITION: Home. DISCHARGE INSTRUCTIONS: 1. Follow up with primary care physician and Dr. Edilberto Dawn in 1 week. 2. Follow up with Cardiology, Dr. Tani Cotto in 1 to 2 weeks. 3. Follow up with Dr. Christopher Barragan as scheduled. 4. Outpatient cardiac rehab has been arranged. 5. The patient was advised to follow up with ENT as outpatient. 6. Fall precaution with 24-hour supervision was recommended. 7. Basic metabolic after 1 week is recommended. 8. The patient was advised to discontinue metoprolol. Lisinopril was increased to 10 mg twice a day. All other home medications were left unchanged. INPATIENT MOBILE EQUIPMENT OPERATOR: Cardiology, Dr. Magen Bradshaw. INPATIENT PROCEDURES: Cardiac catheterization on 13 Jan 2020, by Dr. Magen Bradhsaw showed normal left main with 20% stenosis in the mid LAD, 70% stenosis in the mid RCA. Left circumflex was normal. Echocardiogram showed ejection fraction of 55% to 60% with moderate LVH. CT scan of the brain was negative for acute findings. CT angiogram of the neck showed 50% stenosis at the origin of the left internal carotid and 75% stenosis at the origin of the right internal carotid. BRIEF HOSPITAL COURSE: The patient is a 64-year-old male with coronary artery disease, hypertension, chronic dysphagia presented to the emergency room with generalized weakness along with dizziness and intermittent chest discomfort. Please refer to the history and physical for further details. The patient was admitted to the telemetry unit with above complaints. He had mild acute kidney injury with creatinine of 1.4. He was started on gentle IV hydration. Diuretics were held. He was found to have significant bradycardia and that is why beta blockers were held. He had a Code Green with a near syncopal episode with dizziness. He was evaluated by Cardiology due to above. His heart rate remained in 40s to 50s. He underwent cardiac catheterization yesterday as discussed above. He was also evaluated by Dr. Christopher Barragan for carotid stenosis. Dr. Barragan will follow up the patient in his clinic. Beta-blockers have been completely discontinued. Lisinopril dose was increased by Dr. Bradshaw. He was advised to resume ENT followup for chronic vertigo with dizziness, hearing loss, and tinnitus. Symptomatically, he feels much better. He has been cleared by Cardiology for discharge. He was extensively counseled on lifestyle modification. He was advised to monitor blood pressure on a daily basis. FINAL DIAGNOSES: 1. Generalized weakness, multifactorial. 2. Dizziness with near syncope, probably secondary to hypotension from diuresis with symptomatic bradycardia. 3. Intermittent chest tightness. 4. Chronic swallowing difficulty due to esophageal sphincter. 5. Acute kidney injury with hypotension, probably secondary to diuretics. 6. Hyponatremia. 7. Hypomagnesemia. 8. Bilateral carotid stenosis. 9. Coronary artery disease with stent placement. 10. Obesity with a BMI of 37.9. 11. Hypertension. 12. Obstructive sleep apnea. 13. Hyperlipidemia. 14. Reflex sympathetic dystrophy. 15. Chronic anemia probably due to nutritional deficiency. 16. Iodine deficiency. 17. Chronic tinnitus with hearing deficit. 18. The patient and the family understand the above plan of care. Job ID: [id number]
--- NOTE | 2020-01-14 21:09 | EKG ---
Test Reason : Blood Pressure : / mmHG Vent. Rate : 049 BPM Atrial Rate : 049 BPM P-R Int : 198 ms QRS Dur : 152 ms QT Int : 514 ms P-R-T Axes : 020 -07 -04 degrees QTc Int : 464 ms Marked sinus bradycardia Right bundle branch block T wave abnormality, consider lateral ischemia Abnormal ECG Confirmed by Jessica SOLORIO ([id number]) on 01/14/2020 9:08:58 PM Referred By: NATALIE Confirmed By:Jessica SOLORIO
--- NOTE | 2020-01-16 06:55 | PQF ---
MARIANA KRISHNAN MALIK MD [id number] CLINICAL DOCUMENTATION CLARIFICATION FORM: POST DISCHARGE Addendum to original discharge summary date: ____ Late entry note date: __ DATE:01/16/2020 ATTN: Junaid Monteiro: Please exercise your independent, professional judgment in responding to the clarification form. Clinical indicators are provided on the bottom of this form for your review In your clinical opinion based onc clinical findings below, can you please identigy etiology of Bradycardia if due to: Please check appropriate box(s): [ ] Adverse effect of duretics [ ] Overmedication of Antihypertensive drugs [ x] Probably due to betablockers [ ] Unable to determine In addition, please specify: For continuity of documentation, please document condition throughout progress notes and discharge summary. Thank You. CLINICAL INDICATORS - SIGNS / SYMPTOMS / LABS Vital signs 01/09 BP 98/45, pulse 47, Resp 20, temp 97.9 12 lead EKG 01/09 Showed sinus Bradycardia ED notes p11 01/09 He has symptomatic bradycardia with persitent palpitation H&P p1 01/09 Dr Varela underwent general evaluation showing bradycardia with heart rates in 40s to mid 50s with associated hypotension H&P p1 01/09 Dr Varela Dizzines/near syncope suspected multifactorial including dehydration and potential iatrogenic influence from over-medication with antihypertensives H&P p1 01/09 Dr Varela Hypotension suspected volume mediated and iatrogenic DS p2 01/13 Hypotension from diuresis with symptomatic bradycardia RISK FACTORS H&P p1 01/09 64 year-old Male H&P p1 01/09 HTN H&P p1 01/09 Morbid obesity H&P p1 01/09- CAD H&P p1 01/09- COPD H&P p1 01/09- HLD H&P p4 01/09- CARON H&P p4 01/09- Dehydration H&P p4 01/09- Polypharmacy TREATMENTS: OCT 30 Aspirin 325 mg ora; OCT 30 IVF NS 1L OCT 30 Nitro-bid 2% oitment [facility] with stent placement 01/12 Magen Eckert Cardiac consult 01/09 Magen Eckert TTE 01/10 Respiratory Panel 01/09 Oxygen 2L 12 lead EKG 01/09 Consult p2 01/13 Hold metoporlol, recommend to discontinue also lisinopril and Lasix (This form is maintained as a part of the permanent medical record) 2014 [employer]. All Rights Reserved Anuradha MTD[employer]
--- NOTE | 2020-01-16 06:56 | PQF ---
MARIANA KRISHNAN MALIK MD [id number] CLINICAL DOCUMENTATION CLARIFICATION FORM: POST DISCHARGE Addendum to original discharge summary date: ____ Late entry note date: __ DATE:01/16/2020 ATTN: Junaid Monteiro Please exercise your independent, professional judgment in responding to the clarification form. Clinical indicators are provided on the bottom of this form for your review Please check appropriate box(s): Encephalopathy: Etiology: [ x ] Metabolic [ ] Toxic [ ] Drug induced: [ ] Unspecified [ ] Other (please specify) [ ] Other diagnosis [ ] Unable to determine For continuity of documentation, please document condition throughout progress notes and discharge summary. Thank You. CLINICAL INDICATORS - SIGNS / SYMPTOMS / LABS Vital signs 01/09 BP 98/45, pulse 47, Resp 20, temp 97.9 ED notes p101/09 He has symptomatic bradycardia with persistent palpitation H&P p1 01/09 Dr Varela underwent general evaluation showing bradycardia with heart rates in 40s to mid 50s with associated hypotension H&P p1 01/09 Dr Varela Dizzines/near syncope suspected multifactorial including dehydration and potential iatrogenic inflence from over-medication with antihypertensives H&P p1 01/09 Dr Varela Hypotension suspected volume mediated and iatrogenic Hospitalist PN p7 01/10 Encephalopathy, acute. ?Etiology PN pg1 01/10 intermittent dizziness RISK FACTORS H&P p1 01/09 64 year-old Male H&P p1 01/09 HTN H&P p1 01/09 Morbid obesity H&P p1 01/09- CAD H&P p1 01/09- COPD H&P p4 01/09- CARON H&P p4 01/09- Dehydration H&P p4 01/09- Polypharmacy PN p8 01/11 - Hyponatremia PN p8 01/11 - Hypomagnesemia TREATMENTS: OCT 30 Aspirin 325 mg ora; OCT 30 IVF NS 1L OCT 30 Nitro-bid 2% oitment Cardiac consult 01/09 Magen Eckert Respiratory Panel 01/09 Oxygen 2L12 Consult p2 01/13 Hold metoporlol, recommend to discontinue also lisinopril and Lasix Collected 01/[address] PN p8 01/11 Monitor and replace electrolytes (This form is maintained as a part of the permanent medical record) 2014 [employer]. All Rights Reserved [email or web address] [email or web address]
--- NOTE | 2020-01-16 06:57 | PQF ---
MARIANA KRISHNAN MALIK MD [id number] CLINICAL DOCUMENTATION CLARIFICATION FORM: POST DISCHARGE Addendum to original discharge summary date: ____ Late entry note date: __ DATE:01/16/2020 ATTN: Junaid Monteiro Please exercise your independent, professional judgment in responding to the clarification form. Clinical indicators are provided on the bottom of this form for your review Please check appropriate box(s) to clarify if the following diagnosis has been ruled in or ruled out: Acute tubular necrosis [ ] Ruled in diagnosis [ ] Continue to treat [ ] Resolved [ ] Ruled out diagnosis [ ] Cannot rule out diagnosis [ ] Other diagnosis [ x ] Unable to determine For continuity of documentation, please document condition throughout progress notes and discharge summary. Thank You. CLINICAL INDICATORS - SIGNS / SYMPTOMS / LABS Laboratory 01/08 BUN 35, Creatinine 1.40, GFR 51 Vital signs 01/09 BP 98/45, pulse 47, Resp 20, temp 97.9 H&P p1 01/09 Dr Varela underwent general evaluation showing bradycardia with heart rates in 40s to mid 50s with associated hypotension H&P p1 01/09 Dr Varela Hypotension suspected volume mediated and iatrogenic Hospitalist PN p7 01/13 Acute kidney failure with tubular necrosis Hospitalist PN p7 01/10 Encephalopathy, acute. 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 All Rights Reserved Anuradha [email or web address]
== END 2020-01-14 10:25 | disposition home or self-care (01) | DRG 246 ==
LOC: ERS 11:12 → 2NO 14:45 → OBSVTOIN 01-10 11:04
PROVIDERS: ADMIT Family Medicine; ATTEND Family Medicine
PROC: 027034Z Dilation of Coronary Artery, One Artery with Drug-eluting Intraluminal Device, Percutaneous Approach (ICD-10-PCS; principal; 2020-01-13)
PROC: 4A023N7 Measurement of Cardiac Sampling and Pressure, Left Heart, Percutaneous Approach (ICD-10-PCS; 2020-01-13)
PROC: B2111ZZ Fluoroscopy of Multiple Coronary Arteries using Low Osmolar Contrast (ICD-10-PCS; 2020-01-13)
PROC: B2151ZZ Fluoroscopy of Left Heart using Low Osmolar Contrast (ICD-10-PCS; 2020-01-13)
DX: R00.1 Bradycardia, unspecified (principal); N17.0 Acute kidney failure with tubular necrosis; G93.41 Metabolic encephalopathy; G90.50 Complex regional pain syndrome I, unspecified; E87.1 Hypo-osmolality and hyponatremia; I95.2 Hypotension due to drugs; T50.2X5A Adverse effect of carbonic-anhydrase inhibitors, benzothiadiazides and other diuretics, initial encounter; R07.89 Other chest pain; E83.42 Hypomagnesemia; I65.23 Occlusion and stenosis of bilateral carotid arteries; G47.33 Obstructive sleep apnea (adult) (pediatric); E78.5 Hyperlipidemia, unspecified; D53.9 Nutritional anemia, unspecified; H93.19 Tinnitus, unspecified ear; H91.90 Unspecified hearing loss, unspecified ear; E66.01 Morbid (severe) obesity due to excess calories; G89.4 Chronic pain syndrome; G62.9 Polyneuropathy, unspecified; J44.9 Chronic obstructive pulmonary disease, unspecified; R13.10 Dysphagia, unspecified; K22.8 Other specified diseases of esophagus; E86.0 Dehydration; F41.9 Anxiety disorder, unspecified; F32.9 Major depressive disorder, single episode, unspecified; N40.0 Benign prostatic hyperplasia without lower urinary tract symptoms; I25.118 Atherosclerotic heart disease of native coronary artery with other forms of angina pectoris; T44.7X5A Adverse effect of beta-adrenoreceptor antagonists, initial encounter; Z68.37 Body mass index [BMI] 37.0-37.9, adult; Z87.442 Personal history of urinary calculi; Z95.5 Presence of coronary angioplasty implant and graft; Z79.82 Long term (current) use of aspirin; Z86.73 Personal history of transient ischemic attack (TIA), and cerebral infarction without residual deficits; Z79.899 Other long term (current) drug therapy; Z79.02 Long term (current) use of antithrombotics/antiplatelets; Z88.8 Allergy status to other drugs, medicaments and biological substances; Z88.1 Allergy status to other antibiotic agents; Z91.041 Radiographic dye allergy status
CPT/HCPCS: 36415; 36416; 70450; 70496; 70498; 71045; 80048; 80053; 82550; 83605; 83690; 83735; 83880; 84443; 84484; 85007; 85025; 85027; 85347; 85610; 85730; 92928; 93005; 93010; 93306; 93458; 93798; 96360; 96361; 99153; C1760; C1769; C1874; C1887; C9600; J0360; J1200; J1644; J2001; J2250; J2930; J3010; J3475; J7512; Q0163; Q9967; S0028

== ENCOUNTER 2020-02-19 10:09 | Emergency (ER) | payer MEDICARE, MEDICAID, OTHER ==
[2020-02-20 12:12] LABS: SARS-CoV-2 MS2 Positive; SARS-CoV-2 N Gene Positive; SARS-CoV-2 S Gene Positive; SARS-CoV-2 orf1ab Positive
== END 2020-02-19 10:51 | disposition home or self-care (01) ==
LOC: ERS 10:09
DX: U07.1 COVID-19 (principal); R05 Cough; R09.81 Nasal congestion; G62.9 Polyneuropathy, unspecified; E78.5 Hyperlipidemia, unspecified; I25.10 Atherosclerotic heart disease of native coronary artery without angina pectoris; G47.30 Sleep apnea, unspecified; I10 Essential (primary) hypertension; Z87.442 Personal history of urinary calculi; Z86.73 Personal history of transient ischemic attack (TIA), and cerebral infarction without residual deficits
CPT/HCPCS: 99283; U0003; 87635

== ENCOUNTER 2020-03-16 09:08 | Emergency (ER) | payer MEDICARE, MEDICAID, OTHER | END 2020-03-16 10:00 | disposition home or self-care (01) | LOC: ERS 09:08 | DX: Z20.828 Contact with and (suspected) exposure to other viral communicable diseases (principal); G47.30 Sleep apnea, unspecified; I10 Essential (primary) hypertension; E78.5 Hyperlipidemia, unspecified; G62.9 Polyneuropathy, unspecified; I25.10 Atherosclerotic heart disease of native coronary artery without angina pectoris; Z86.73 Personal history of transient ischemic attack (TIA), and cerebral infarction without residual deficits | CPT/HCPCS: 99283 ==

== ENCOUNTER 2020-06-05 09:51 | Inpatient (IN) | payer MEDICARE, MEDICAID, OTHER ==
[2020-06-05] MEDS ORDERED: Aspirin Chewable 81 MG TAB ONE (10:07)
[2020-06-05 10:22] LABS: #Monocytes 0.5 thou/uL (0.11-0.59); #Neutrophils 4.3 thou/uL (1.40-6.50); %Basophils 0.1 % (0.0-1.0); %Eosinophils 0.7 % (0.0-10.0); %Lymphocytes 17.1 % (21.0-51.0); %Monocytes 8.4 % (0.0-10.0); %Neutrophils 73.6 % (42.0-75.0); Hemoglobin 11.6 g/dL (14.0-18.0); Mean Corpuscular HGB CONC 34.3 g/dL (32.0-36.0); Mean Corpuscular Hemoglobin 34.2 pg (27.0-31.0); Mean Corpuscular Volume 99.6 fL (78.0-98.0); Mean Platelet Volume 6.6 fL (7.4-10.4); Platelet Count 239 thou/uL (130-400); RBC Distribution Width 13.8 % (11.5-14.5); Red Blood Cell (RBC) Count 3.38 mill/uL (4.70-6.10); White Blood Cell (WBC) Count 5.8 thou/uL (4.8-10.8)
--- NOTE | 2020-06-05 10:36 | RAD ---
RADIOGRAPH CHEST 1 VIEW: DATE: 06/05/2020 TIME: 10:29 AM HISTORY: 70-year-old male with chest pain and dyspnea COMPARISON: 01/09/2020 FINDINGS: Elevated right hemidiaphragm. Transversely oriented patchy airspace densities partially overlapping r ight hemidiaphragm at right base appears similar. Nonspecific airspace opacity at medial base of left lower lobe appears similar. The upper and mid lung zones remain clear. No pneumothorax. No inter manisha change overall. IMPRESSION: 1) evaluation of posterior lung bases is limited because this is only a single view. 2) nonspecific pulmonary parenchymal densities at the bases of the bilateral lower lobes appear simil ar to 01/09/2020. They may represent pulmonary scars and/or chronic atelectasis. 3) no interval change overall.
[2020-06-05 10:46] LABS: ALT (SGPT) 24 U/L (8-55); AST (SGOT) 17 U/L (5-34); Albumin 4.1 g/dL (3.4-4.8); Alkaline Phosphatase 92 U/L (40-110); Anion Gap 13 mmol/L (10-20); BUN (Urea Nitrogen) 38 mg/dL (8.4-25.7); Bilirubin, Total 0.5 mg/dL (0.2-1.2); CK (CPK) 223 U/L (30-200); Calc. Creatinine Clearance 0 mL/min (70-130); Calcium 8.5 mg/dL (7.8-10.44); Carbon Dioxide 28 mmol/L (23-31); Chloride 100 mmol/L (98-107); Estimated GFR-MDRD 36; Globulin 2.4 g/dL (2.4-3.5); Glucose 84 mg/dL (80-115); Lipase 22 U/L (8-78); Protein, Total 6.5 g/dL (5.8-8.1); Sodium 136 mmol/L (136-145)
[2020-06-05] MEDS ORDERED: Enoxaparin Sodium 100 MG/ML SYRINGE ONE (11:48)
[2020-06-05] MEDS ORDERED: Enoxaparin Sodium 30 MG/0.3 ML SYRINGE ONE (11:48)
[2020-06-05 14:13] LABS: Troponin I Less than 0.010 ng/mL (< 0.028)
[2020-06-05 16:40] LABS: Troponin I Less than 0.010 ng/mL (< 0.028)
[2020-06-05] MEDS ORDERED: FLU VACC QS2020-21(6MOS UP)/PF 60 MCG/0.5 ML SYRINGE IM ONE (17:45)
--- NOTE | 2020-06-05 19:37 | HP ---
CHIEF COMPLAINT: Chest pain. HISTORY OF PRESENT ILLNESS: The patient is a 64-year-old male with past medical history of coronary artery disease, status post multiple stents; hypertension; and hyperlipidemia, who woke up this morning and did not feel well. The patient stated that he felt pain in the middle of his chest in addition to choking sensation in his throat. He waited at home to see if the pain will resolve, but the pain persisted. EMS was called, and the patient was brought to the ER. In route, he received aspirin and nitroglycerin, which led to him developing hypotension. This was relieved with IV fluids in the ER. At this time, the patient stated that he still does not feel well, but his chest pain is not as intense as it was at home. He denies fever, chills, cough, palpitations, or dizziness. He is complaining of mild shortness of breath. REVIEW OF SYSTEMS: Negative except as noted in HPI. PAST MEDICAL HISTORY: Include peripheral neuropathy, sleep apnea, kidney stones, diverticular disease, coronary artery disease status post stent placement, hyperlipidemia, hypertension, and TIAs. PAST SURGICAL HISTORY: Include right knee surgery, lumbar surgery, shoulder surgery, and lithotripsy. SOCIAL HISTORY: The patient denies alcohol use, illicit drug use, or smoking. ALLERGIES: THE PATIENT IS ALLERGIC TO GABAPENTIN, CONTRAST MATERIAL, FLUOROQUINOLONES, AND LYRICA. PHYSICAL EXAMINATION: GENERAL: The patient is alert and oriented x3. HEENT: Head is normocephalic and atraumatic. Extraocular muscles are intact. NECK: Supple. CHEST: Auscultation is clear bilaterally, but showing some diminished sounds. CARDIOVASCULAR: Showing normal S1, S2. Regular rate and rhythm. No murmurs, rubs, or gallops. ABDOMEN: Soft, distended, but nontender. NEUROLOGICAL: Nonfocal. PERTINENT DATA: Laboratory studies revealed negative troponin and negative BNP. His creatinine level is elevated at 1.92 and his BUN is 38. This is greater than his normal baseline. Chest x-ray showed some chronic bilateral densities. ASSESSMENT: 1. Chest pain, likely due to angina. 2. Hypertension. 3. Hyperlipidemia. 4. Coronary artery disease. PLAN: I have discussed the patient's presentation with his property assistant, Dr. Mitchell Cotto. He indicated that the patient does have chronic angina and he underwent multiple cardiac catheterizations before, which showed small vessel disease and no intervention was done on the recent catheterizations. He recommended observing the patient and trending his troponins and if they remain negative, to discharge him home tomorrow with outpatient followup with Dr. Cotto. At this time, I will continue the patient's aspirin, atorvastatin, Imdur, and Ranexa. I will hold his diuretics and lisinopril due to the acute kidney injury. Repeat BMP in the morning. Lovenox for DVT prophylaxis. Job ID: [id number]
[2020-06-05] MEDS ORDERED: Isosorbide Dinitrate 20 MG TAB PO SCH (21:00)
[2020-06-05] MEDS ORDERED: Lisinopril 10 MG TAB PO SCH (21:00)
[2020-06-05] MEDS ORDERED: Furosemide 20 MG TAB PO SCH (21:00)
[2020-06-05] MEDS: Atorvastatin Calcium 40 MG TAB PO SCH (21:06)
[2020-06-05] MEDS: Tamsulosin HCl 0.4 MG CAP PO SCH (21:06)
[2020-06-05] MEDS: Metoprolol Tartrate 25 MG TAB PO SCH (21:07)
[2020-06-06 04:20] LABS: #Eosinphils 0.1 thou/uL (0.0-0.7); #Lymphocytes 1.4 thou/uL (1.20-3.40); #Monocytes 0.5 thou/uL (0.11-0.59); %Basophils 0.1 % (0.0-1.0); %Eosinophils 2.3 % (0.0-10.0); %Lymphocytes 28.1 % (21.0-51.0); %Monocytes 10.6 % (0.0-10.0); %Neutrophils 58.9 % (42.0-75.0); Hemoglobin 10.8 g/dL (14.0-18.0); Mean Corpuscular HGB CONC 34.1 g/dL (32.0-36.0); Mean Corpuscular Hemoglobin 34.2 pg (27.0-31.0); Platelet Count 245 thou/uL (130-400); RBC Distribution Width 13.8 % (11.5-14.5); Red Blood Cell (RBC) Count 3.17 mill/uL (4.70-6.10)
[2020-06-06 04:39] LABS: Anion Gap 12 mmol/L (10-20); BUN (Urea Nitrogen) 39 mg/dL (8.4-25.7); Calc. Creatinine Clearance 59 mL/min (70-130); Calcium 8.2 mg/dL (7.8-10.44); Carbon Dioxide 27 mmol/L (23-31); Chloride 101 mmol/L (98-107); Estimated GFR-MDRD 56; Glucose 88 mg/dL (80-115); Sodium 136 mmol/L (136-145)
[2020-06-06] MEDS ORDERED: Fluticasone Propionate Nasal Spray 16 gm Bottle NASAL PRN (07:44)
[2020-06-06] MEDS ORDERED: Meclizine HCl 25 MG TAB PO PRN (07:44)
[2020-06-06] MEDS ORDERED: Cyclobenzaprine 10 MG TAB PO PRN (07:44)
[2020-06-06] MEDS ORDERED: Mometasone 200 MCG/Formoterol 5 MCG 120 PUFF INHALER INH PRN (08:01)
[2020-06-06] MEDS: Citalopram 20 MG TAB PO SCH (08:27)
[2020-06-06] MEDS: Aspirin 81 mg Enteric Coated Tablet PO SCH (08:27)
[2020-06-06] MEDS: Metoprolol Tartrate 25 MG TAB PO SCH (08:27)
[2020-06-06] MEDS: Allopurinol 100 MG TAB PO SCH (08:27)
[2020-06-06] MEDS: Enoxaparin Sodium 40 MG/0.4 ML SYRINGE SC SCH (08:28)
--- NOTE | 2020-06-06 12:16 | PDOC.HOSPP ---
- Subjective Encounter Date: 06/06/20 Encounter Time: 12:15 Subjective: Mr. Shepherd was seen today in follow-up of weakness. He says both legs are weak. He also says he feels numbness from the waiste down. He has a history of prior back surgery. He denies any chest pain or dyspnea. - Objective Vital Signs & Weight: Vital Signs (12 hours) Temp Pulse Resp BP Pulse Ox 06/06/20 08:20 98 F 60 18 133/63 96 06/06/20 03:55 98.2 F 54 L 12 123/60 98 Weight Weight 257 lb 11.2 oz I&O: 06/05/20 06/06/20 06/07/20 06:59 06:59 06:59 Intake Total 360 240 Balance 360 240 Result Diagrams: 06/06/20 03:35 06/06/20 03:35 Hospitalist ROS - Medication Medications: Active Medications Generic Name Dose Route Start Last Admin Trade Name Freq PRN Reason Stop Dose Admin Allopurinol 100 mg 06/06/20 09:00 06/06/20 08:27 Allopurinol 100 Mg Tab PO 100 mg QAM LINDSEY Administration Aspirin 81 mg 06/06/20 09:00 06/06/20 08:27 Aspirin 81 Mg Enteric Coated Tablet PO 81 mg DAILY LINDSEY Administration Atorvastatin Calcium 40 mg 06/05/20 21:00 06/05/20 21:06 Atorvastatin Calcium 40 Mg Tab PO 40 mg HS LINDSEY Administration Citalopram Hydrobromide 40 mg 06/06/20 09:00 06/06/20 08:27 Citalopram 20 Mg Tab PO 40 mg DAILY LINDSEY Administration Enoxaparin Sodium 40 mg 06/06/20 09:00 06/06/20 08:28 Enoxaparin Sodium 40 Mg/0.4 Ml Syringe SC 40 mg 0900 LINDSEY Administration Isosorbide Mononitrate 60 mg 06/06/20 09:00 06/06/20 08:27 Isosorbide Mononitrate Er 60 Mg Tab PO 60 mg DAILY LINDSEY Administration Ranolazine 1,000 mg 06/05/20 21:00 06/06/20 08:27 Ranolazine 500 Mg Tab PO 1,000 mg BID LINDSEY Administration Tamsulosin HCl 0.4 mg 06/05/20 21:00 06/05/20 21:06 Tamsulosin Hcl 0.4 Mg Cap PO 0.4 mg HS LINDSEY Administration - Exam General Appearance: NAD, awake alert Heart: RRR, no murmur, no gallops, no rubs, normal peripheral pulses Respiratory: CTAB, no wheezes, no rales, no ronchi, normal chest expansion, no tachypnea Gastrointestinal: soft, non-tender, non-distended, normal bowel sounds, no palpable masses, no hepatomegaly Extremities: no cyanosis, no edema (+ good dorsalis pedis pulses bilaterally, good capillary refill) Skin: normal turgor, no lesions, no rashes Musculoskeletal: normal tone, normal strength, no muscle wasting Hosp A/P (1) Lower extremity weakness Code(s): R29.898 - OTH SYMPTOMS AND SIGNS INVOLVING THE MUSCULOSKELETAL SYSTEM Status: Acute (2) Bradycardia Code(s): R00.1 - BRADYCARDIA, UNSPECIFIED Status: Acute (3) CAD (coronary artery disease) Code(s): I25.10 - ATHSCL HEART DISEASE OF [place] CORONARY ARTERY W/O ANG PCTRS Status: Chronic Qualifiers: Coronary Disease-Associated Artery/Lesion type: [place] artery [place] vs. transplanted heart: [place] heart Associated angina: without angina Qualified Code(s): I25.10 - Atherosclerotic heart disease of [place] coronary artery withou t angina pectoris (4) Cardiomyopathy Code(s): I42.9 - CARDIOMYOPATHY, UNSPECIFIED Status: Chronic Qualifiers: (5) Hypertension Code(s): I10 - ESSENTIAL (PRIMARY) HYPERTENSION Status: Chronic (6) Dehydration Code(s): E86.0 - DEHYDRATION Status: Resolved - Plan * Bradycardia- his heart rate dipped into the 40's while on Metoprolol. He has CAD- will change him to Carvediolol at the lowest dose * Lower extremity weakness- likely due to mild volume depletion, however lumbar spinal stenosis is also a possibility * Will check a CT scan of the L-S spine ( MRI would be preferred, but he has an in-planted spinal stimulator * Reviewed his old records, He has a CTA of the [place] [facility] [place] in December of this year. He had 75% stenosis at the origin of the right carotid and 50% at the origin of the left. This may need to be repeated, but he is recovering from acute kidney injury * He had COVID infection earlier this year- unclear if this is playing a role in his current presentation * HTN- blood pressure is stable * CAD- stable * Acute kidney injury- improved
[2020-06-06 13:36] VITALS: BMI 35.9
[2020-06-06 15:23] LABS: SARS-CoV-2 MS2 Positive; SARS-CoV-2 N Gene Negative; SARS-CoV-2 S Gene Negative; SARS-CoV-2 by NAA Not Detected (NotDetected); SARS-CoV-2 orf1ab Negative
--- NOTE | 2020-06-06 16:17 | CT ---
CT Lumbar Spine WO Con History: Lower extremity weakness Comparison: None. Findings: Nonobstructing right-sided superior renal calculus, incompletely evaluated. Aortic contour is nonaneurysmal. Dense atherosclerotic plaque. Superior endplate Schmorl's node at T12 with old superior endplate compression deformity with 50% ant erior height loss. Dorsal column stimulator lead enters the spinal canal at T12/L1. No acute fracture of the lumbar spine. No acute listhesis. Sacrum is intact. No SI joint widening. Amie mbar spine transverse processes are intact. Limited level by level evaluation is as follows: L1/L2: Small disc osteophyte complex. Mild effacement of the ventral CSF space with the spinal canal measuring 7 mm. Moderate bilateral neural foraminal narrowing. L2/L3: Advanced degenerative disc space height loss with vacuum disc phenomenon. Large disc osteophyt e complex. Spinal canal is narrowed to approximately 4 mm. Moderate to severe bilateral neural foraminal narrowing. L3/L4: Advanced degenerative disc space height loss. Large disc osteophyte complex and vacuum disc ph enomenon. The spinal canal measures approximate 5 mm. Moderate to severe bilateral neural foraminal narrowing. L4/L5: Advanced posterior degenerative disc space height loss. Asymmetric posterior disc osteophyte c omplex largest involvement of the subforaminal zones and right lateral recess. Severe right and moderate to severe left neural foraminal narrowing. Spinal canal is narrowed to approximately 3-4 mm. High-grade ligamentum flavum hypertrophy. Moderate to severe facet arthrosis. L5/S1: Advanced degenerative disc space height loss. Moderate disc osteophyte complex. Moderate to se massimo right and moderate left neural foraminal narrowing. Severe narrowing of the interspinous space at L4/L5 with periostitis and erosions. Impression: 1. High-grade degenerative change lower lumbar spine with multilevel neural foraminal and spinal cyndy l narrowing. Further evaluation with CT myelogram may be beneficial if clinically warranted. 2. Severe degenerative change of the L4/L5 spinous processes can be a source of pain with lumbar exte nsion. 3. No acute lumbar spine fracture.
[2020-06-06] MEDS ORDERED: Carvedilol 3.125 MG TAB PO SCH ×2 (17:00→21:00)
[2020-06-06] MEDS: Acetaminophen 325 MG TAB PO PRN (20:36)
[2020-06-06] MEDS: Tamsulosin HCl 0.4 MG CAP PO SCH (20:37)
[2020-06-06] MEDS: Atorvastatin Calcium 40 MG TAB PO SCH (20:37)
[2020-06-06] MEDS ORDERED: rOPINIRole HCl 2 MG TAB PO SCH (21:45)
[2020-06-07] MEDS ORDERED: Ondansetron PF 4 MG/2 ML Vial IVP PRN (04:44)
[2020-06-07] MEDS ORDERED: Ondansetron ODT 4 MG TAB PO PRN (04:44)
[2020-06-07 07:56] LABS: #Eosinphils 0.2 thou/uL (0.0-0.7); #Lymphocytes 1.2 thou/uL (1.20-3.40); #Monocytes 0.5 thou/uL (0.11-0.59); #Neutrophils 2.3 thou/uL (1.40-6.50); %Basophils 0.6 % (0.0-1.0); %Eosinophils 3.7 % (0.0-10.0); %Lymphocytes 29.7 % (21.0-51.0); %Neutrophils 55.1 % (42.0-75.0); Hemoglobin 12.1 g/dL (14.0-18.0); Mean Corpuscular HGB CONC 33.9 g/dL (32.0-36.0); Mean Corpuscular Hemoglobin 34.1 pg (27.0-31.0); Mean Platelet Volume 6.2 fL (7.4-10.4); Platelet Count 255 thou/uL (130-400); RBC Distribution Width 13.6 % (11.5-14.5); Red Blood Cell (RBC) Count 3.54 mill/uL (4.70-6.10); White Blood Cell (WBC) Count 4.2 thou/uL (4.8-10.8)
[2020-06-07 08:18] LABS: Anion Gap 10 mmol/L (10-20); BUN (Urea Nitrogen) 16 mg/dL (8.4-25.7); Calc. Creatinine Clearance 161 mL/min (70-130); Carbon Dioxide 31 mmol/L (23-31); Chloride 100 mmol/L (98-107); Estimated GFR-MDRD Greater than 90; Glucose 92 mg/dL (80-115); Potassium 4.2 mmol/L (3.5-5.1); Sodium 137 mmol/L (136-145)
[2020-06-07] MEDS: Allopurinol 100 MG TAB PO SCH (08:31)
[2020-06-07] MEDS: Citalopram 20 MG TAB PO SCH (08:31)
[2020-06-07] MEDS: Aspirin 81 mg Enteric Coated Tablet PO SCH (08:31)
[2020-06-07] MEDS: Enoxaparin Sodium 40 MG/0.4 ML SYRINGE SC SCH (08:31)
--- NOTE | 2020-06-07 12:25 | PDOC.HOSPP ---
- Subjective Encounter Date: 06/07/20 Encounter Time: 12:20 Subjective: Mr. Shepherd was seen today in follow-up of generalized weakness. He says he still does not feel up to par. He at times will have some dyspnea as well. - Objective Vital Signs & Weight: Vital Signs (12 hours) Temp Pulse Resp BP BP Pulse Ox 06/07/20 08:00 98.5 F 54 L 16 141/64 H 95 06/07/20 04:46 97.5 F L 53 L 18 145/65 H 95 Weight Admit Weight 257 lb 11.2 oz Weight 256 lb I&O: 06/06/20 06/07/20 06/08/20 06:59 06:59 06:59 Intake Total 360 1920 Output Total 7005 Balance 360 -555 Result Diagrams: 06/07/20 07:49 06/07/20 07:49 Hospitalist ROS - Medication Medications: Active Medications Generic Name Dose Route Start Last Admin Trade Name Freq PRN Reason Stop Dose Admin Acetaminophen 650 mg 06/05/20 12:56 06/06/20 20:36 Acetaminophen 325 Mg Tab PO 650 mg Q4H PRN Administration Headache/Fever/Mild Pain (1-3) Allopurinol 100 mg 06/06/20 09:00 06/07/20 08:31 Allopurinol 100 Mg Tab PO 100 mg QAM LINDSEY Administration Aspirin 81 mg 06/06/20 09:00 06/07/20 08:31 Aspirin 81 Mg Enteric Coated Tablet PO 81 mg DAILY LINDSEY Administration Atorvastatin Calcium 40 mg 06/05/20 21:00 06/06/20 20:37 Atorvastatin Calcium 40 Mg Tab PO 40 mg HS LINDSEY Administration Citalopram Hydrobromide 40 mg 06/06/20 09:00 06/07/20 08:31 Citalopram 20 Mg Tab PO 40 mg DAILY LINDSEY Administration Enoxaparin Sodium 40 mg 06/06/20 09:00 06/07/20 08:31 Enoxaparin Sodium 40 Mg/0.4 Ml Syringe SC 40 mg 0900 LINDSEY Administration Isosorbide Mononitrate 60 mg 06/06/20 09:00 06/07/20 08:31 Isosorbide Mononitrate Er 60 Mg Tab PO 60 mg DAILY LINDSEY Administration Meclizine HCl 25 mg 06/06/20 07:44 06/06/20 12:18 Meclizine Hcl 25 Mg Tab PO 25 mg TIDPRN PRN Administration vertigo Ondansetron HCl 4 mg 06/07/20 04:44 06/07/20 05:56 Ondansetron Odt 4 Mg Tab PO 4 mg Q6H PRN Administration Nausea/Vomiting Ranolazine 1,000 mg 06/05/20 21:00 06/07/20 08:31 Ranolazine 500 Mg Tab PO 1,000 mg BID LINDSEY Administration Tamsulosin HCl 0.4 mg 06/05/20 21:00 06/06/20 20:37 Tamsulosin Hcl 0.4 Mg Cap PO 0.4 mg HS LINDSEY Administration - Exam Eye: PERRL, anicteric sclera Heart: RRR, no murmur, no gallops, no rubs, normal peripheral pulses Respiratory: CTAB, no wheezes, no rales, no ronchi, normal chest expansion, no tachypnea, normal percussion Gastrointestinal: soft, non-tender, non-distended, normal bowel sounds, no palpable masses, no hepatomegaly Extremities: no cyanosis, no edema Hosp A/P (1) Lower extremity weakness Code(s): R29.898 - OTH SYMPTOMS AND SIGNS INVOLVING THE MUSCULOSKELETAL SYSTEM Status: Acute (2) Bradycardia Code(s): R00.1 - BRADYCARDIA, UNSPECIFIED Status: Acute (3) CAD (coronary artery disease) Code(s): I25.10 - ATHSCL HEART DISEASE OF [place] CORONARY ARTERY W/O ANG PCTRS Status: Chronic Qualifiers: Coronary Disease-Associated Artery/Lesion type: [place] artery [place] vs. transplanted heart: [place] heart Associated angina: without angina Qualified Code(s): I25.10 - Atherosclerotic heart disease of [place] coronary artery without angina pectoris (4) Cardiomyopathy Code(s): I42.9 - CARDIOMYOPATHY, UNSPECIFIED Status: Chronic Qualifiers: (5) Hypertension Code(s): I10 - ESSENTIAL (PRIMARY) HYPERTENSION Status: Chronic (6) Dehydration Code(s): E86.0 - DEHYDRATION Status: Resolved - Plan * Bradycardia- he has continued to have low heart rate despite holding Metoprolol, and Carvediolol- not sure if this may be the cause of his symptoms * Will consult Cardiology * Lower extremity weakness- CT of Lumbar spine noted- will consult Neurosurgery * Reviewed his old records, He has a CTA of the [place] in December of this year. He had 75% stenosis at the origin of the right carotid and 50% at the origin of the left. This may need to be repeated, but he is recovering from acute kidney injury * He had COVID infection earlier this year- unclear if this is playing a role in his current presentation * HTN- blood pressure is stable * CAD- stable * Acute kidney injury- improved
--- NOTE | 2020-06-07 15:57 | ULT ---
Arterial duplex sonogram bilateral lower extremity HISTORY: Leg weakness. Vascular disease. FINDINGS: Good color and spectral Doppler flow throughout the arterial structures of each lower extremity. No a bnormally elevated peak systolic velocities. Right: Triphasic waveform demonstrated within the common femoral, femoral, popliteal, and posterior t ibial artery. Biphasic wave flow in the anterior tibial artery. Monophasic flow at the dorsalis pedis. Left: Triphasic waveform demonstrated at the common femoral, femoral, popliteal, and posterior tibial arteries. Biphasic wave flow at the anterior tibial artery. Monophasic flow at the dorsalis pedis. IMPRESSION : Good arterial flow throughout each lower extremity without sonographic evidence of significant stenos is.
--- NOTE | 2020-06-07 19:10 | CON ---
DATE OF CONSULTATION: 06/07/2020 CHIEF COMPLAINT: Bilateral lower extremity paresthesias and weakness, imbalance. HISTORY OF PRESENT ILLNESS: Mr. Shepherd is a 64-year-old male, who initially presented for chest pain and shortness of breath. Our team was consulted for evaluation of lower extremity weakness and paresthesias. The patient has a history pertinent for coronary artery disease with multiple stents, hypertension, hyperlipidemia. The patient reports that he has previously undergone lumbar surgeries, but was unable to describe what procedures he has had done. His surgeries were remote in the . He reports that he has a spinal cord stimulator, and also believes that he has previously undergone lumbar decompression surgery. He reports that he has had chronic low back pain and bilateral lower extremity symptoms for many years. He reports that he has had worsening paresthesias and weakness in his legs over the last year. He reports chronic low back pain that waxes and wanes in severity. He reports numbness in the bilateral hips, legs, and feet. He states that he lacks sensation in the bottom of the feet, which makes it difficult to ambulate. He also reports poor circulation and coldness. He reports bilateral leg pain that is primarily posterior in nature, but also present anteriorly as well. He states that his leg pain waxes and wanes in severity. He reports feeling off balance when walking and requires a cane to assist with ambulation. He states that he is able to walk a few feet at a time before having increased weakness in his legs as well as significant shortness of breath and at times chest pain. He must sit down in order to catch his breath and rest his legs. The patient also notes left greater than right upper extremity symptoms. Specifically, he reports numbness in the ulnar aspect of the left hand and fingers. PHYSICAL EXAMINATION: The patient is awake, alert, and appropriate. He is in no acute distress. He is able to speak at length in full sentences and does not exhibit signs of respiratory distress. He demonstrates 5/5 strength throughout his bilateral lower extremity myotomes. Gait was not assessed. He reports subjective decreased sensation throughout his bilateral lower extremities. IMPRESSION: 1. Lumbar spondylosis. 2. Chronic low back pain. 3. Long-standing bilateral lower extremity weakness and paresthesias. 4. Chest pain. 5. Dyspnea on exertion. PLAN: Case discussed and imaging reviewed with Dr. Bhandari. Noncontrast CT of the lumbar spine completed yesterday on 06/06/2020, reveals significant degeneration of the lumbar spine with multilevel stenosis. Dorsal column stimulator lead injure spinal canal at the level of T12-L1. There is multilevel degenerative disk disease and vacuum disk phenomenon. There are no acute abnormalities noted including fracture or malalignment. The patient is uncertain if his dorsal column stimulator is MRI compatible. Additional imaging of the lumbar spine would be beneficial to determine the degree of lumbar stenosis. Given his symptoms are chronic and long-standing in nature, this can be arranged on an outpatient basis. Determination can be made if MRI versus CT myelogram which needs to be completed. I would recommend imaging the entire spine given the patient's reports of both upper and lower extremity symptoms, although his lower extremity symptoms are more bothersome at this time. Imaging can be arranged once the patient has been fully evaluated for his dyspnea on exertion and chest pain, as these are more critical. The patient can follow up with his a surgeon of record, otherwise our team would be happy to follow up with him on an outpatient basis. The patient and his were provided with our team's card and they can contact our office to arrange for outpatient followup. This was a 50-minute initial visit, in which greater than 50% of the time was spent in review of records, review of imaging, evaluation, examination, and formulation of a plan. The remaining time was spent in counseling and coordination of care. Job ID: [id number]
[2020-06-07] MEDS: rOPINIRole HCl 2 MG TAB PO SCH (20:14)
[2020-06-07] MEDS: Tamsulosin HCl 0.4 MG CAP PO SCH (20:14)
[2020-06-07] MEDS: Atorvastatin Calcium 40 MG TAB PO SCH (20:14)
[2020-06-07] MEDS: Lisinopril 10 MG TAB PO SCH (20:19)
--- NOTE | 2020-06-07 21:39 | CON ---
DATE OF CONSULTATION: 06/07/2020 INDICATION FOR CONSULTATION: A 64-year-old patient with history of coronary artery disease, who was admitted with chest pain and increasing shortness of breath. HISTORY OF PRESENT ILLNESS: This very pleasant 64-year-old gentleman has a history of coronary artery disease, who has undergone stent placement recently by Dr. Thomson in December of this year. He has also been seen by Dr. Cotto in the past. He has had several cardiac catheterization, uncertain as whether or not he has had previous stents placed. Those records are not yet available. Apparently, two days ago when he woke up, he knows he has some chest pain became increasingly short of breath. He has some radiation of pain into the jaw and then, he called the ambulance, was brought to the emergency room. His cardiac enzymes have remained negative for myocardial infarction. His EKG does not show any acute changes and no ST-segment elevation to indicate ischemia. He does have some nonspecific changes and the right bundle branch block. He does have bradycardia, which is not a new finding and has remained relatively stable in the hospital, but still occasionally has some chest discomfort. He did describe the chest discomfort as being like an elephant sitting on his chest. He does seem to have also quite a bit of peripheral neuropathy and some possible some anxiety. PAST MEDICAL HISTORY: Significant for coronary artery disease, angioplasty and stent placement. He has a history of peripheral neuropathy, sleep apnea, he uses CPAP mask. He has nephrolithiasis. He has said he has diverticulitis, hypertension, hyperlipidemia, and TIAs in the past. He has a hiatal hernia. He also had a diagnosis of COVID back in January of this year, he did not require hospitalization. He has had knee surgery, lumbar surgery, and shoulder surgery. SOCIAL HISTORY: He is . No history of alcohol or tobacco abuse. ALLERGIES: HE IS ALLERGIC TO GABAPENTIN, CONTRAST MATERIALS, FLUOROQUINOLONES, AND LYRICA. REVIEW OF SYSTEMS: He complains of visual changes and blurred vision recently. He has had the chest pain and pressure as noted. He has shortness of breath and dyspnea on exertion. He also complains of weakness and fatigue. PHYSICAL EXAMINATION: GENERAL: Reveals an obese, gentleman, who is in no acute distress at this time. VITAL SIGNS: Blood pressure is 158/70 and heart rate is 52 and regular. He is afebrile. O2 saturation 97%. Respiratory rate is 14. Heart rates in the 50s. HEENT: Shows the head to be normocephalic and atraumatic. He has a right carotid bruit present. Did not see any significant JVD. CHEST: Clear to auscultation without rales, rhonchi, or wheezing. CARDIOVASCULAR: Reveals a regular rhythm at this time, somewhat bradycardic. There were no gross heaves, thrills, murmurs, or bruits noted. ABDOMEN: Shows obesity with positive bowel sounds. He has some mild right lower quadrant tenderness, but there were no palpable masses. EXTREMITIES: Show no clubbing, cyanosis, or edema. Pedal pulses are present. NEUROLOGIC: The patient appears to be fully intact with no gross focal motor deficits. SKIN: Warm and dry. MEDICATIONS: Please note, his medications include; 1. Lyrica. 2. Ropinirole. 3. Potassium chloride. 4. Furosemide 20 mg b.i.d. 5. Bentyl. 6. Celexa. 7. Plavix 75 mg a day. 8. Vitamin D3. 9. Lipitor 40 mg a day. 10. Aspirin 325 mg a day. 11. Armodafinil. 12. Allopurinol. 13. Zaroxolyn 5 mg on Mondays, Wednesdays, and Fridays. 14. Lisinopril 10 mg b.i.d. 15. Imdur 60 mg a day. 16. Flomax 0.4 mg q.p.m. 17. Ranexa 1000 mg b.i.d. 18. Since being in the hospital, he has been placed on Lovenox. LABORATORY DATA: WBCs 4.2, hemoglobin 12.1, and platelet count is 255,000. His sodium is 137, potassium 4.2, chloride 100, bicarb was 31, BUN is 16 down from 39 when he was admitted, and creatinine 0.77. His CK was 223. Cardiac enzymes are negative. His BNP was 10.5. D-dimer was 0.68. He is negative for COVID. IMPRESSION AND PLAN: 1. This is a 64-year-old gentleman with repeat episodes of chest pain with history of coronary artery disease. However, EKG is unremarkable for any acute changes and the enzymes remain negative. Since, he did complain of the elephant sitting on his chest and then became short of breath, we will schedule him for repeat stress test. If there is any evidence or he has any abnormalities, he will need to undergo a repeat cardiac catheterization or based on Dr. Thomson's impression, when he sees the patient tomorrow, he may opt for a cardiac catheterization rather than proceeding to stress test. In the meantime, we will order a stress test for tomorrow. 2. History of dizziness and near syncope. According to the patient, he does have bradycardia. He has had no significant pauses since being admitted to the hospital. He may need to have a monitor placed for evaluation to see whether or not his dizziness may be related to bradycardia. 3. History of right carotid artery stenosis. He has been seen by Dr. Barragan and will be continued to followed by him. No intervention has been indicated or planned at this time. 4. History of hypertension. This is relatively stable, but may need to have further angiotensin-converting enzyme inhibitors or calcium blockers in the form of Norvasc in order to lower the blood pressure. Otherwise, at this time, he appears to be relatively stable. We will be more than happy to continue to follow the patient with you, but further recommendations will be by Dr. Thomson when he visits with the patient tomorrow. Job ID: [id number]
[2020-06-08] MEDS ORDERED: Regadenoson 0.4 MG/5 ML SYRINGE ONE (08:54)
[2020-06-08] MEDS ORDERED: Metolazone 5 MG TAB PO SCH (09:00)
[2020-06-08] MEDS: Citalopram 20 MG TAB PO SCH (09:04)
[2020-06-08] MEDS: Allopurinol 100 MG TAB PO SCH (09:04)
[2020-06-08] MEDS: Aspirin 81 mg Enteric Coated Tablet PO SCH (09:04)
[2020-06-08] MEDS: Lisinopril 10 MG TAB PO SCH ×2 (09:05→22:09)
[2020-06-08] MEDS: Enoxaparin Sodium 40 MG/0.4 ML SYRINGE SC SCH (09:05)
--- NOTE | 2020-06-08 13:14 | NM ---
EXAM: CARDIAC SPECT HISTORY: Chest pain, dyspnea on exertion, coronary disease, stent, TIA, hypertension, dyslipidemia TECHNIQUE: A myocardial perfusion scan was performed using the single isotope 1 day protocol with bonny hnetium 99m sestamibi. [10 mCi] was injected intravenously for the rest exam followed by 30 mCi for the stress study. Pharmacologic stress with Lexiscan was monitored and interpreted by the nurse practitioner FINDINGS: Homogeneous tracer distribution is seen in the myocardial segments on stress and rest image s without fixed or reversible defects. Gated SPECT LVEF: 80% Wall motion exam: Normal IMPRESSION: Normal myocardial perfusion scan
[2020-06-08] MEDS ORDERED: Communication Order-Pharmacy FS SCH (14:15)
[2020-06-08] MEDS: predniSONE 20 MG TAB PO SCH ×3 (14:56→22:56)
[2020-06-08] MEDS: diphenhydrAMINE 25 MG CAP PO SCH ×3 (14:56→22:56)
[2020-06-08] MEDS: Famotidine 20 MG TAB PO SCH ×3 (14:56→22:56)
[2020-06-08] MEDS: Tamsulosin HCl 0.4 MG CAP PO SCH (22:08)
[2020-06-08] MEDS: Atorvastatin Calcium 40 MG TAB PO SCH (22:08)
[2020-06-08] MEDS: Acetaminophen 325 MG TAB PO PRN (22:08)
[2020-06-08] MEDS: rOPINIRole HCl 2 MG TAB PO SCH (22:09)
[2020-06-09] MEDS ORDERED: diphenhydrAMINE 25 MG CAP PO SCH ×2 (05:00→06:00)
[2020-06-09] MEDS ORDERED: predniSONE 20 MG TAB PO SCH ×2 (05:00→06:00)
[2020-06-09] MEDS: Allopurinol 100 MG TAB PO SCH (05:59)
[2020-06-09] MEDS: Acetaminophen 325 MG TAB PO PRN (05:59)
[2020-06-09] MEDS: Aspirin 81 mg Enteric Coated Tablet PO SCH (05:59)
[2020-06-09] MEDS ORDERED: Famotidine 20 MG TAB PO SCH (06:00)
[2020-06-09] MEDS: Citalopram 20 MG TAB PO SCH (06:00)
[2020-06-09] MEDS: Lisinopril 10 MG TAB PO SCH (06:01)
[2020-06-09] MEDS ORDERED: Lidocaine 1% (PF) 30 ML VIAL ONE (07:35)
[2020-06-09] MEDS ORDERED: Midazolam HCl 2 mg/2 ml Vial ONE (08:01)
[2020-06-09] MEDS ORDERED: Nitroglycerin 0.4 MG TAB (25 Tab Bottle) SL PRN (08:35)
[2020-06-09] MEDS ORDERED: Sodium Chloride 0.9% 200 ML IV PRN (08:35)
[2020-06-09] MEDS ORDERED: Iopamidol 370 76% 100 ML VIAL ONE (09:17)
--- NOTE | 2020-06-09 14:01 | PDOC.HOSPP ---
- Subjective Encounter Date: 06/09/20 Encounter Time: 14:00 Subjective: Mr. Shepherd was seen today in follow-up of generalized weakness. He does not have any complaints. - Objective Vital Signs & Weight: Vital Signs (12 hours) Temp Pulse Resp BP BP BP Pulse Ox 06/09/20 11:05 97.8 F 50 L 16 139/65 97 06/09/20 09:05 53 L 16 129/60 97 06/09/20 07:23 97.8 F 57 L 18 109/56 L 96 06/09/20 04:01 97.9 F 56 L 14 142/64 H 94 L Weight Admit Weight 257 lb 11.2 oz Weight 256 lb I&O: 06/08/20 06/09/20 06/10/20 06:59 06:59 06:59 Intake Total 480 730 Output Total 700 600 Balance -220 130 Result Diagrams: 06/07/20 07:49 06/07/20 07:49 Hospitalist ROS - Medication Medications: Active Medications Generic Name Dose Route Start Last Admin Trade Name Freq PRN Reason Stop Dose Admin Acetaminophen 650 mg 06/05/20 12:56 06/09/20 05:59 Acetaminophen 325 Mg Tab PO 650 mg Q4H PRN Administration Headache/Fever/Mild Pain (1-3) Allopurinol 100 mg 06/06/20 09:00 06/09/20 05:59 Allopurinol 100 Mg Tab PO 100 mg QAM LINDSEY Administration Aspirin 81 mg 06/06/20 09:00 06/09/20 05:59 Aspirin 81 Mg Enteric Coated Tablet PO 81 mg DAILY LINDSEY Administration Atorvastatin Calcium 40 mg 06/05/20 21:00 06/08/20 22:08 Atorvastatin Calcium 40 Mg Tab PO 40 mg HS LINDSEY Administration Citalopram Hydrobromide 40 mg 06/06/20 09:00 06/09/20 06:00 Citalopram 20 Mg Tab PO 40 mg DAILY LINDSEY Administration Isosorbide Mononitrate 60 mg 06/06/20 09:00 06/09/20 06:01 Isosorbide Mononitrate Er 60 Mg Tab PO 60 mg DAILY LINDSEY Administration Lisinopril 10 mg 06/07/20 21:00 06/09/20 06:01 Lisinopril 10 Mg Tab PO 10 mg BID LINDSEY Administration Meclizine HCl 25 mg 06/06/20 07:44 06/06/20 12:18 Meclizine Hcl 25 Mg Tab PO 25 mg TIDPRN PRN Administration vertigo Ondansetron HCl 4 mg 06/07/20 04:44 06/07/20 05:56 Ondansetron Odt 4 Mg Tab PO 4 mg Q6H PRN Administration Nausea/Vomiting Ranolazine 1,000 mg 06/05/20 21:00 06/09/20 05:59 Ranolazine 500 Mg Tab PO 1,000 mg BID LINDSEY Administration Ropinirole HCl 4 mg 06/07/20 21:00 06/08/20 22:09 Ropinirole Hcl 2 Mg Tab PO 4 mg QPM LINDSEY Administration Tamsulosin HCl 0.4 mg 06/05/20 21:00 06/08/20 22:08 Tamsulosin Hcl 0.4 Mg Cap PO 0.4 mg HS LINDSEY Administration - Exam Eye: PERRL, anicteric sclera Heart: RRR, no murmur, no gallops, no rubs, normal peripheral pulses Respiratory: CTAB, no wheezes, no rales, no ronchi, normal chest expansion, no tachypnea Gastrointestinal: soft, non-tender, non-distended, normal bowel sounds, no palpable masses, no hepatomegaly Extremities: no cyanosis, 1+ LE edema Hosp A/P (1) Lower extremity weakness Code(s): R29.898 - OTH SYMPTOMS AND SIGNS INVOLVING THE MUSCULOSKELETAL SYSTEM Status: Acute (2) Bradycardia Code(s): R00.1 - BRADYCARDIA, UNSPECIFIED Status: Acute (3) CAD (coronary artery disease) Code(s): I25.10 - ATHSCL HEART DISEASE OF [place] CORONARY ARTERY W/O ANG PCTRS Status: Chronic Qualifiers: Coronary Disease-Associated Artery/Lesion type: [place] artery [place] vs. transplanted heart: [place] heart Associated angina: without angina Qualified Code(s): I25.10 - Atherosclerotic heart disease of [place] coronary artery without angina pectoris (4) Cardiomyopathy Code(s): I42.9 - CARDIOMYOPATHY, UNSPECIFIED Status: Chronic Qualifiers: (5) Hypertension Code(s): I10 - ESSENTIAL (PRIMARY) HYPERTENSION Status: Chronic (6) Dehydration Code(s): E86.0 - DEHYDRATION Status: Resolved - Plan * Bradycardia- stable * Cardiac cath findings noted * He has been cleared for discharge home
[2020-06-09 15:19] VITALS: BP 113/53; TEMP 98
[2020-06-09] MEDS: ARMODAFINIL 150 MG PO SCH (16:35)
--- NOTE | 2020-06-09 23:40 | DIS ---
DATE OF ADMISSION: 06/05/2020 DATE OF DISCHARGE: 06/09/2020 PRIMARY CARE PHYSICIAN: Dr. Edilberto Dawn. DISCHARGE DISPOSITION: Home. DISCHARGE DIAGNOSES: 1. Chest pain. 2. Generalized weakness. 3. Acute kidney injury. 4. Coronary artery disease. 5. Diabetes mellitus, type 2. 6. Lumbar spinal stenosis. 7. Obstructive sleep apnea. 8. Hypertension. 9. Hyperlipidemia. 10. History of transient ischemic attack. 11. Nephrolithiasis. 12. Diverticular disease. DISCHARGE MEDICATIONS: 1. Plavix 75 mg p.o. daily. 2. Nitrostat 0.4 sublingual p.r.n. 3. Lisinopril 10 mg p.o. b.i.d. 4. Flomax 0.4 mg p.o. q.h.s. 5. Flexeril 10 mg p.o. t.i.d. 6. Antivert 25 mg p.o. t.i.d. as needed. 7. Allopurinol 100 mg p.o. daily. 8. Zofran 8 mg p.o. q.6 as needed. 9. Zaroxolyn 5 mg p.o. Monday, Wednesdays, and Fridays. 10. Vitamin D3 5000 units p.o. daily. 11. Ropinirole 4 mg p.o. q.p.m. 12. Ranexa 1000 mg p.o. b.i.d. 13. ProAir 2 puffs q.4 as needed. 14. Montelukast 10 mg p.o. daily. 15. Lyrica 75 mg p.o. b.i.d. 16. Lipitor 40 mg p.o. q.h.s. 17. Lasix 20 mg p.o. b.i.d. 18. Potassium chloride 20 mEq p.o. b.i.d. 19. Imdur 60 mg p.o. daily. 20. Flonase nasal spray intranasally daily. 21. [place]-3 fatty acids 1 tablet p.o. daily. 22. Iron plus B12 complex. 23. Folic acid 1 capsule daily. 24. Citalopram 40 mg p.o. daily. 25. Bentyl 20 mg p.o. q.i.d. as needed. 26. Aspirin 325 mg daily. 27. Armodafinil 150 mg p.o. daily. 28. Amoxicillin 500 mg daily. 29. Advair Diskus 1 inhalation daily. IMAGING DONE DURING THE HOSPITAL STAY: The patient had a cardiac catheterization, which was essentially negative for any flow-limiting disease. There was a very short 15 mm segment of 45% stenosis of the LAD. The patient had a CT scan of the lumbar spine, this demonstrated high-grade degenerative joint disease, which was multilevel with some spinal canal narrowing from L4 through L5. The patient had an arterial ultrasound showing no evidence of any flow-limiting disease. Also had a nuclear stress test, which was negative for any reversible ischemia. CODE STATUS: Full code. ALLERGIES: TO IODINATED CONTRAST, TRAMADOL, GABAPENTIN, LEVOFLOXACIN, AND PREGABALIN. HOSPITAL COURSE: Mr. Shepherd is a pleasant 64-year-old gentleman who presented to the emergency room with complaints of chest pain, which was primarily left-sided, and more or less atypical in its description. He also was having some significant weakness as well. The full details of which are outlined in the history and physical by Dr. Santana. The original plan was to rule the patient out and if ruled out, then allow him to go see his primary medicaid eligibility specialist who is Dr. Cotto. He does not have privilege in our facility. However the following day, the patient was continuing to have chest pain. He was stating that he was feeling generally weak. He also had complaints of pain in both lower extremities as well as generalized weakness. For this reason, we held him in the hospital to do further evaluation. His lower extremity pain and weakness were concerning for possible lumbar disk disease. He has a history of lumbar DJD, and has a pain stimulator. For this reason, we were unable to do a MRI and had to settle for a CT scan of the lumbar spine. This did show significant degenerative joint disease as well as significant spinal canal stenosis. Neurosurgery was consulted. It was felt that he did not have objective leg weakness and therefore the workup could be deferred to the outpatient setting. He was in the process of having a cardiac evaluation, therefore the information was given to the patient to see Dr. Bhandari and his associates in the outpatient setting, and pursue a CT myelogram and/or MRI of the lumbar spine if his device was compatible. Regarding the chest pain, the medicaid eligibility specialist hadoop consultant was consulted. He recommended getting a nuclear stress test, which was done. His results were negative, however, given his history of coronary artery disease in the past, it was felt to go ahead and proceed with cardiac catheterization. The patient had no significant coronary artery disease other than a very short 45% segment in the mid LAD. Medical management was recommended and no significant changes were made in the patient's medications. It is also noted that the patient had an elevated creatinine, and an acute kidney injury, which responded to fluid administration and holding his diuretics, and it is possible that his symptoms could be attributable to the acute kidney injury and dehydration. The patient was stabilized and subsequently able to be discharged home with close outpatient followup. Job ID: [id number]
== END 2020-06-09 16:30 | disposition home or self-care (01) | DRG 683 ==
LOC: ERS 09:51 → 2NO 13:23
PROVIDERS: ADMIT Internal Medicine; ATTEND Internal Medicine
PROC: B2111ZZ Fluoroscopy of Multiple Coronary Arteries using Low Osmolar Contrast (ICD-10-PCS; principal; 2020-06-09)
PROC: B2151ZZ Fluoroscopy of Left Heart using Low Osmolar Contrast (ICD-10-PCS; 2020-06-09)
PROC: 4A023N7 Measurement of Cardiac Sampling and Pressure, Left Heart, Percutaneous Approach (ICD-10-PCS; 2020-06-09)
DX: N17.9 Acute kidney failure, unspecified (principal); I42.9 Cardiomyopathy, unspecified; I25.119 Atherosclerotic heart disease of native coronary artery with unspecified angina pectoris; R00.1 Bradycardia, unspecified; E78.5 Hyperlipidemia, unspecified; I10 Essential (primary) hypertension; G47.33 Obstructive sleep apnea (adult) (pediatric); E86.0 Dehydration; E66.9 Obesity, unspecified; M48.061 Spinal stenosis, lumbar region without neurogenic claudication; Z20.828 Contact with and (suspected) exposure to other viral communicable diseases; I65.21 Occlusion and stenosis of right carotid artery; M47.816 Spondylosis without myelopathy or radiculopathy, lumbar region; G62.9 Polyneuropathy, unspecified; N20.0 Calculus of kidney; Z88.8 Allergy status to other drugs, medicaments and biological substances; Z88.1 Allergy status to other antibiotic agents; Z95.5 Presence of coronary angioplasty implant and graft; Z98.890 Other specified postprocedural states; Z79.82 Long term (current) use of aspirin; Z79.899 Other long term (current) drug therapy; Z86.73 Personal history of transient ischemic attack (TIA), and cerebral infarction without residual deficits; Z68.35 Body mass index [BMI] 35.0-35.9, adult
CPT/HCPCS: 36415; 71045; 72131; 78452; 80048; 80053; 82550; 83690; 83880; 84484; 85025; 85379; 87635; 90471; 90662; 90732; 93005; 93017; 93458; 93923; 94760; 99152; 99153; A9500; G0008; G0009; J1644; J1650; J2001; J2250; J2785; J7512; Q0162; Q0163; Q9967; U0003

== ENCOUNTER 2021-01-18 06:40 | Outpatient (CLI) | payer MEDICARE, MEDICAID ==
[2021-01-13 15:45] VITALS: BMI 37.2
[2021-01-18 08:07] VITALS: BP 122/62; TEMP 98.5
== END 2021-01-18 10:45 | disposition home or self-care (01) ==
LOC: RAD 06:40
PROVIDERS: ATTEND Surgery
PROC: 008 Central Nervous System and Cranial Nerves, Division (ICD-10-PCS; principal; 2021-01-18)
DX: M54.5 Low back pain (principal); R20.0 Anesthesia of skin; G89.29 Other chronic pain; M47.816 Spondylosis without myelopathy or radiculopathy, lumbar region; M48.061 Spinal stenosis, lumbar region without neurogenic claudication; N20.0 Calculus of kidney; I65.21 Occlusion and stenosis of right carotid artery
CPT/HCPCS: 72126; 72129; 72132; 77002

== ENCOUNTER 2021-09-04 11:14 | Emergency (ER) | payer MEDICARE, OTHER ==
[2021-09-04] MEDS ORDERED: Lorazepam 2 MG/ML VIAL ONE (13:21)
[2021-09-04] MEDS ORDERED: Fentanyl 100 MCG/2 ML VIAL ONE (13:21)
[2021-09-04] MEDS ORDERED: Ketorolac Tromethamine 30 MG/ML VIAL ONE (13:22)
[2021-09-04] MEDS ORDERED: Dexamethasone 4 mg/ml Vial ONE (13:22)
== END 2021-09-04 13:45 | disposition home or self-care (01) ==
LOC: ERS 11:14
DX: M54.50 Low back pain, unspecified (principal); I25.10 Atherosclerotic heart disease of native coronary artery without angina pectoris; E78.5 Hyperlipidemia, unspecified; I10 Essential (primary) hypertension; Z86.73 Personal history of transient ischemic attack (TIA), and cerebral infarction without residual deficits
CPT/HCPCS: 96372; 99283; J1100; J1885; J2060; J3010

== ENCOUNTER 2021-09-05 01:10 | Emergency (ER) | payer MEDICARE, OTHER | END 2021-09-05 04:17 | disposition home or self-care (01) | LOC: ERS 01:10 | DX: M54.50 Low back pain, unspecified (principal); G89.29 Other chronic pain; G47.30 Sleep apnea, unspecified; I25.10 Atherosclerotic heart disease of native coronary artery without angina pectoris; E78.5 Hyperlipidemia, unspecified; I10 Essential (primary) hypertension; Z86.73 Personal history of transient ischemic attack (TIA), and cerebral infarction without residual deficits | CPT/HCPCS: 99283 ==

== ENCOUNTER 2021-09-07 10:54 | Inpatient (IN) | payer MEDICARE, MEDICAID ==
[2021-09-07 12:55] LABS: #Lymphocytes 0.5 thou/uL (1.20-3.40); #Monocytes 0.3 thou/uL (0.11-0.59); #Neutrophils 10.5 thou/uL (1.40-6.50); %Eosinophils 0.1 % (0.0-10.0); %Lymphocytes 4.2 % (21.0-51.0); %Monocytes 2.6 % (0.0-10.0); %Neutrophils 93.1 % (42.0-75.0); Hemoglobin 10.2 g/dL (14.0-18.0); Mean Corpuscular HGB CONC 34.9 g/dL (32.0-36.0); Mean Platelet Volume 6.4 fL (7.4-10.4); Platelet Count 305 thou/uL (130-400); RBC Distribution Width 11.9 % (11.5-14.5); Red Blood Cell (RBC) Count 2.75 mill/uL (4.70-6.10); White Blood Cell (WBC) Count 11.3 thou/uL (4.8-10.8)
[2021-09-07 13:17] LABS: ALT (SGPT) 26 U/L (8-55); AST (SGOT) 35 U/L (5-34); Albumin 3.8 g/dL (3.4-4.8); Alkaline Phosphatase 96 U/L (40-110); Anion Gap 21 mmol/L (10-20); BUN (Urea Nitrogen) 81 mg/dL (8.4-25.7); CK (CPK) 827 U/L (30-200); Calc. Creatinine Clearance 0 mL/min (70-130); Calcium 9.2 mg/dL (7.8-10.44); Carbon Dioxide 18 mmol/L (23-31); Chloride 103 mmol/L (98-107); Globulin 2.8 g/dL (2.4-3.5); Glucose 82 mg/dL (80-115); Potassium 5.2 mmol/L (3.5-5.1); Protein, Total 6.6 g/dL (5.8-8.1); Sodium 137 mmol/L (136-145)
[2021-09-07 13:19] LABS: MDiff Complete? YES; Macrocytosis SLIGHT = 6-15 cells (100X) (0-5/hpf); Ovalocytes SLIGHT = 2-5 cells (100X) (0-1/hpf); Platelet Morphology Comment Appears Adequate
[2021-09-07 13:39] LABS: Bacteria/HPF None Seen HPF (None Seen); Bilirubin Negative (Negative); Blood, Urine 1+ (Negative); Clarity Clear (Clear); Glucose, Urine (Dipstick) Normal (Negative); Ketone, Urine Trace mg/dL (Negative); Leukocyte Negative Leu/uL (Negative); Nitrite Negative (Negative); Protein, Urine (Dipstick) Negative (Neg-Trace); RBC/HPF 0-3 HPF (0-3); Specific Gravity, Urine 1.012 (1.002-1.036); Squamous Epithelial 0-3 HPF (0-3); Urobilinogen Normal mg/dL (Less than 2); WBC/HPF 0-3 HPF (0-3); pH, Urine 5.5 (5.0-9.0)
[2021-09-07] MEDS ORDERED: Norepinephrine 8 MG/0.9% NS 250 ML ONE (13:47)
[2021-09-07 14:05] LABS: SARS-CoV-2 NAA Rapid Test Not Detected (NotDetected)
[2021-09-07] MEDS ORDERED: Vancomycin 1 GM/200 ML BAG ONE (14:52)
[2021-09-07] MEDS ORDERED: Cefepime 2 GM VIAL ONE (14:53)
[2021-09-07 15:50] LABS: Troponin I 0.011 ng/mL (< 0.028)
[2021-09-07] MEDS ORDERED: Electrolyte Replacement Protocol 1 EACH FS ONE (16:19)
[2021-09-07] MEDS ORDERED: Norepinephrine 8 MG/0.9% NS 250 ML IVPB SCH (16:30)
[2021-09-07] MEDS ORDERED: Electrolyte Replacement Protocol FS PRN (18:15)
[2021-09-07] MEDS: Sodium Chloride 0.9% 1,000 ML IV SCH (18:19)
[2021-09-07 18:41] LABS: Free T4 (Free Thyroxine) 1.23 ng/dL (0.70-1.48)
[2021-09-07 19:55] VITALS: BMI 33.7
[2021-09-07] MEDS ORDERED: hydrALAZINE 20 MG/ML VIAL SLOW IVP PRN (20:01)
[2021-09-08] MEDS: Cefepime 1 GM in Sodium Chloride 0.9% 100 ML IVPB SCH ×2 (02:09→17:06)
[2021-09-08] MEDS: Acetaminophen 325 MG TAB PO PRN ×3 (02:10→17:05)
[2021-09-08] MEDS: Sodium Chloride 0.9% 1,000 ML IV SCH ×2 (02:19→12:30)
[2021-09-08 04:32] LABS: #Lymphocytes 1.1 thou/uL (1.20-3.40); #Monocytes 0.6 thou/uL (0.11-0.59); #Neutrophils 5.3 thou/uL (1.40-6.50); %Basophils 0.3 % (0.0-1.0); %Eosinophils 0.2 % (0.0-10.0); %Lymphocytes 15.4 % (21.0-51.0); %Monocytes 9.2 % (0.0-10.0); Hemoglobin 9.9 g/dL (14.0-18.0); Mean Corpuscular HGB CONC 34.9 g/dL (32.0-36.0); Mean Corpuscular Hemoglobin 37.1 pg (27.0-31.0); Mean Platelet Volume 6.5 fL (7.4-10.4); Platelet Count 290 thou/uL (130-400); RBC Distribution Width 11.7 % (11.5-14.5); Red Blood Cell (RBC) Count 2.68 mill/uL (4.70-6.10)
[2021-09-08 04:48] LABS: ALT (SGPT) 24 U/L (8-55); AST (SGOT) 28 U/L (5-34); Albumin 3.2 g/dL (3.4-4.8); Alkaline Phosphatase 80 U/L (40-110); Anion Gap 18 mmol/L (10-20); BUN (Urea Nitrogen) 69 mg/dL (8.4-25.7); Bilirubin, Total 0.6 mg/dL (0.2-1.2); Calc. Creatinine Clearance 63 mL/min (70-130); Calcium 8.5 mg/dL (7.8-10.44); Carbon Dioxide 17 mmol/L (23-31); Chloride 108 mmol/L (98-107); Globulin 2.5 g/dL (2.4-3.5); Glucose 95 mg/dL (80-115); Protein, Total 5.7 g/dL (5.8-8.1); Sodium 139 mmol/L (136-145)
[2021-09-08] MEDS ORDERED: Prevnar 13-Val Conj/PF 0.5 ML SYRINGE IM ONE (09:00)
[2021-09-08] MEDS ORDERED: FLU VACC QS2021-22(6MOS UP)/PF 60 MCG/0.5 ML SYRINGE IM ONE (09:00)
[2021-09-08 11:52] LABS: Amphetamine Not Detected (NotDetected); Barbiturates Screen Not Detected (NotDetected); Benzodiazepine Screen Not Detected (NotDetected); Cocaine Metabolite Screen Not Detected (NotDetected); Methadone Not Detected (NotDetected); Methamphetamine Not Detected (NotDetected); Opiate Screen Not Detected (NotDetected); Oxycodone Screen Not Detected (NotDetected); Phencyclidine (PCP) Not Detected (NotDetected); THC/Cannabinoid Screen Not Detected (NotDetected); Tricyclic Screen Not Detected (NotDetected)
[2021-09-08] MEDS: Pantoprazole 40 MG VIAL IVP SCH (11:56)
[2021-09-08] MEDS: Enoxaparin Sodium 30 MG/0.3 ML SYRINGE SC SCH (11:56)
[2021-09-08] MEDS ORDERED: Meclizine HCl 25 MG TAB PO PRN (16:12)
[2021-09-08] MEDS ORDERED: Dicyclomine 20 MG TAB PO PRN (16:12)
[2021-09-08] MEDS ORDERED: Albuterol Sulfate 2.5 mg/3 ml Neb NEB PRN (16:19)
[2021-09-08] MEDS: Cepastat Lozenges 1 LOZ PO PRN (17:06)
[2021-09-08] MEDS: Thiamine HCl 200 MG/2 ML VIAL SLOW IVP SCH (17:07)
[2021-09-08] MEDS: Atorvastatin Calcium 20 MG TAB PO SCH (20:26)
[2021-09-08] MEDS: Tamsulosin HCl 0.4 MG CAP PO SCH (20:27)
[2021-09-08] MEDS: Cyclobenzaprine 10 MG TAB PO PRN (20:27)
[2021-09-08] MEDS: rOPINIRole HCl 2 MG TAB PO SCH (20:27)
[2021-09-09] MEDS: Sodium Chloride 0.9% 1,000 ML IV SCH ×2 (01:20→09:59)
[2021-09-09] MEDS: Cefepime 1 GM in Sodium Chloride 0.9% 100 ML IVPB SCH ×2 (04:14→15:04)
[2021-09-09 05:16] LABS: #Eosinphils 0.1 thou/uL (0.0-0.7); #Lymphocytes 1.4 thou/uL (1.20-3.40); #Monocytes 0.5 thou/uL (0.11-0.59); #Neutrophils 3.6 thou/uL (1.40-6.50); %Basophils 0.2 % (0.0-1.0); %Eosinophils 1.5 % (0.0-10.0); %Lymphocytes 25.6 % (21.0-51.0); %Monocytes 8.4 % (0.0-10.0); %Neutrophils 64.3 % (42.0-75.0); Hemoglobin 9.4 g/dL (14.0-18.0); Mean Corpuscular HGB CONC 34.9 g/dL (32.0-36.0); Mean Corpuscular Hemoglobin 37.1 pg (27.0-31.0); Mean Platelet Volume 6.7 fL (7.4-10.4); Platelet Count 285 thou/uL (130-400); RBC Distribution Width 11.8 % (11.5-14.5); Red Blood Cell (RBC) Count 2.53 mill/uL (4.70-6.10); White Blood Cell (WBC) Count 5.6 thou/uL (4.8-10.8)
[2021-09-09] MEDS: Cepastat Lozenges 1 LOZ PO PRN ×2 (05:39→12:33)
[2021-09-09 05:43] LABS: ALT (SGPT) 22 U/L (8-55); AST (SGOT) 20 U/L (5-34); Albumin 2.9 g/dL (3.4-4.8); Alkaline Phosphatase 77 U/L (40-110); Anion Gap 13 mmol/L (10-20); BUN (Urea Nitrogen) 31 mg/dL (8.4-25.7); Bilirubin, Total 0.6 mg/dL (0.2-1.2); Calc. Creatinine Clearance 140 mL/min (70-130); Carbon Dioxide 22 mmol/L (23-31); Chloride 106 mmol/L (98-107); Globulin 2.3 g/dL (2.4-3.5); Glucose 98 mg/dL (80-115); Potassium 3.6 mmol/L (3.5-5.1); Protein, Total 5.2 g/dL (5.8-8.1); Sodium 137 mmol/L (136-145)
[2021-09-09] MEDS ORDERED: POLYSACCHARIDE IRON COMPLEX PO SCH (09:00)
[2021-09-09] MEDS ORDERED: CYANOCOBALAMIN PO SCH (09:00)
[2021-09-09] MEDS ORDERED: FOLIC ACID PO SCH (09:00)
[2021-09-09] MEDS ORDERED: [UNRECOGNIZED DRUG - OTHER] PO SCH (09:00)
[2021-09-09] MEDS ORDERED: Enoxaparin Sodium 40 MG/0.4 ML SYRINGE SC SCH (09:30)
[2021-09-09] MEDS: Clopidogrel Bisulfate 75 MG TAB PO SCH (09:48)
[2021-09-09] MEDS: Citalopram 20 MG TAB PO SCH (09:48)
[2021-09-09] MEDS: Montelukast Sodium 10 mg Tablet PO SCH (09:48)
[2021-09-09] MEDS: Enoxaparin Sodium 30 MG/0.3 ML SYRINGE SC SCH (09:49)
[2021-09-09] MEDS: Cyclobenzaprine 10 MG TAB PO PRN (09:49)
[2021-09-09] MEDS ORDERED: Enoxaparin Sodium 40 MG/0.4 ML SYRINGE ONE (12:17)
[2021-09-09] MEDS: Pantoprazole 40 MG VIAL IVP SCH (12:33)
[2021-09-09] MEDS: Lidocaine 5% Patch TD SCH (12:33)
[2021-09-09] MEDS ORDERED: Aluminum & Magnesium Hydroxide 60 ML, diphenhydrAMINE 150 MG, Lidocaine 2% Viscous Solu... SSW PRN (14:59)
[2021-09-09] MEDS: Thiamine HCl 200 MG/2 ML VIAL SLOW IVP SCH (18:22)
[2021-09-09] MEDS ORDERED: Transdermal Patch Removal TOP SCH (21:00)
[2021-09-09] MEDS: Atorvastatin Calcium 20 MG TAB PO SCH (21:15)
[2021-09-09] MEDS: Tamsulosin HCl 0.4 MG CAP PO SCH (21:15)
[2021-09-09] MEDS: rOPINIRole HCl 2 MG TAB PO SCH (21:15)
[2021-09-10] MEDS: Cepastat Lozenges 1 LOZ PO PRN ×2 (02:36→12:49)
[2021-09-10] MEDS: Cefepime 1 GM in Sodium Chloride 0.9% 100 ML IVPB SCH (02:36)
[2021-09-10 07:16] LABS: #Eosinphils 0.2 thou/uL (0.0-0.7); #Lymphocytes 1.5 thou/uL (1.20-3.40); #Monocytes 0.5 thou/uL (0.11-0.59); #Neutrophils 2.4 thou/uL (1.40-6.50); %Basophils 0.2 % (0.0-1.0); %Eosinophils 3.4 % (0.0-10.0); %Lymphocytes 33.1 % (21.0-51.0); %Monocytes 10.1 % (0.0-10.0); %Neutrophils 53.2 % (42.0-75.0); Hemoglobin 9.7 g/dL (14.0-18.0); Mean Corpuscular HGB CONC 33.6 g/dL (32.0-36.0); Mean Corpuscular Hemoglobin 35.6 pg (27.0-31.0); Mean Platelet Volume 6.5 fL (7.4-10.4); Platelet Count 281 thou/uL (130-400); RBC Distribution Width 11.5 % (11.5-14.5); Red Blood Cell (RBC) Count 2.72 mill/uL (4.70-6.10); White Blood Cell (WBC) Count 4.4 thou/uL (4.8-10.8)
[2021-09-10 07:28] LABS: Anion Gap 10 mmol/L (10-20); BUN (Urea Nitrogen) 16 mg/dL (8.4-25.7); Calc. Creatinine Clearance 158 mL/min (70-130); Calcium 8.2 mg/dL (7.8-10.44); Carbon Dioxide 24 mmol/L (23-31); Chloride 106 mmol/L (98-107); Glucose 97 mg/dL (80-115); Magnesium 1.5 mg/dL (1.6-2.6); Potassium 3.9 mmol/L (3.5-5.1); Sodium 136 mmol/L (136-145)
[2021-09-10 07:35] LABS: Phosphorus 1.8 mg/dL (2.3-4.7)
[2021-09-10] MEDS ORDERED: Magnesium 2 GM/50 ML 2 GM in Premix Bag 1 BAG IVPB SCH (08:00)
[2021-09-10] MEDS: Clopidogrel Bisulfate 75 MG TAB PO SCH (08:47)
[2021-09-10] MEDS: Pantoprazole 40 MG VIAL IVP SCH (08:47)
[2021-09-10] MEDS: Montelukast Sodium 10 mg Tablet PO SCH (08:48)
[2021-09-10] MEDS: Citalopram 20 MG TAB PO SCH (08:48)
[2021-09-10] MEDS: PHOS-NAK 1 PKT PACK PO SCH ×2 (08:49→12:49)
[2021-09-10] MEDS: Lidocaine 5% Patch TD SCH (08:49)
[2021-09-10] MEDS ORDERED: Enoxaparin Sodium 40 MG/0.4 ML SYRINGE SC SCH (09:00)
[2021-09-10] MEDS ORDERED: VANCOMYCIN 2 GRAM/400 ML BAG 2 GM in Premix Bag 1 BAG IVPB SCH (09:00)
[2021-09-10] MEDS: Benzonatate 100 MG CAP PO SCH ×2 (09:50→14:46)
[2021-09-10 09:59] VITALS: BP 163/73; TEMP 97.4
== END 2021-09-10 19:00 | DRG 682 ==
LOC: ERS 10:54 → CCU 17:00 → MSONC 09-08 15:52
PROVIDERS: ADMIT Internal Medicine; ATTEND Family Medicine
PROC: 3E033XZ Introduction of Vasopressor into Peripheral Vein, Percutaneous Approach (ICD-10-PCS; principal; 2021-09-07)
PROC: 06HY33Z Insertion of Infusion Device into Lower Vein, Percutaneous Approach (ICD-10-PCS; 2021-09-07)
DX: N17.0 Acute kidney failure with tubular necrosis (principal); R57.1 Hypovolemic shock; G93.41 Metabolic encephalopathy; E86.0 Dehydration; Z20.822 Contact with and (suspected) exposure to COVID-19; G62.9 Polyneuropathy, unspecified; I25.10 Atherosclerotic heart disease of native coronary artery without angina pectoris; E78.5 Hyperlipidemia, unspecified; G47.33 Obstructive sleep apnea (adult) (pediatric); K21.9 Gastro-esophageal reflux disease without esophagitis; J45.909 Unspecified asthma, uncomplicated; D53.9 Nutritional anemia, unspecified; E66.9 Obesity, unspecified; M54.50 Low back pain, unspecified; J06.9 Acute upper respiratory infection, unspecified; Z86.73 Personal history of transient ischemic attack (TIA), and cerebral infarction without residual deficits; Z95.5 Presence of coronary angioplasty implant and graft; Z88.8 Allergy status to other drugs, medicaments and biological substances; Z88.6 Allergy status to analgesic agent; Z88.1 Allergy status to other antibiotic agents; Z91.041 Radiographic dye allergy status; Z79.899 Other long term (current) drug therapy; Z79.02 Long term (current) use of antithrombotics/antiplatelets; Z79.51 Long term (current) use of inhaled steroids; Z79.82 Long term (current) use of aspirin; Z79.52 Long term (current) use of systemic steroids; Z87.442 Personal history of urinary calculi; Z96.82 Presence of neurostimulator; Z98.890 Other specified postprocedural states; Z68.34 Body mass index [BMI] 34.0-34.9, adult
CPT/HCPCS: 0240U; 36415; 70450; 71045; 71250; 72125; 74177; 80048; 80053; 80306; 81003; 81015; 82533; 82550; 82607; 82746; 83605; 83735; 84100; 84439; 84443; 84481; 84484; 85025; 87040; 93005; 93306; 94640; 94660; C9113; J0692; J1650; J3370; J3411; J3475; J3490; J7050; J7620

== ENCOUNTER 2021-09-25 16:20 | Inpatient (IN) | payer MEDICARE, MEDICAID ==
[2021-09-25 17:10] LABS: #Eosinphils 0.1 thou/uL (0.0-0.7); #Lymphocytes 1.2 thou/uL (1.20-3.40); #Monocytes 0.6 thou/uL (0.11-0.59); #Neutrophils 4.5 thou/uL (1.40-6.50); %Basophils 0.3 % (0.0-1.0); %Eosinophils 1.6 % (0.0-10.0); %Lymphocytes 18.9 % (21.0-51.0); %Monocytes 8.9 % (0.0-10.0); %Neutrophils 70.3 % (42.0-75.0); Hemoglobin 9.6 g/dL (14.0-18.0); Mean Corpuscular HGB CONC 33.6 g/dL (32.0-36.0); Mean Platelet Volume 6.5 fL (7.4-10.4); Platelet Count 242 thou/uL (130-400); RBC Distribution Width 12.3 % (11.5-14.5); Red Blood Cell (RBC) Count 2.67 mill/uL (4.70-6.10); White Blood Cell (WBC) Count 6.4 thou/uL (4.8-10.8)
[2021-09-25 17:29] LABS: AST (SGOT) 13 U/L (5-34); Albumin 3.6 g/dL (3.4-4.8); Anion Gap 16 mmol/L (10-20); BUN (Urea Nitrogen) 64 mg/dL (8.4-25.7); Bilirubin, Total 0.4 mg/dL (0.2-1.2); Calc. Creatinine Clearance 0 mL/min (70-130); Calcium 8.5 mg/dL (7.8-10.44); Carbon Dioxide 21 mmol/L (23-31); Chloride 102 mmol/L (98-107); Globulin 2.2 g/dL (2.4-3.5); Glucose 102 mg/dL (80-115); Potassium 4.4 mmol/L (3.5-5.1); Protein, Total 5.8 g/dL (5.8-8.1); Sodium 135 mmol/L (136-145)
[2021-09-25 17:37] LABS: ALT (SGPT) 16 U/L (8-55); Alkaline Phosphatase 82 U/L (40-110)
[2021-09-25] MEDS ORDERED: Cyclobenzaprine 10 MG TAB PO PRN (18:21)
[2021-09-25] MEDS ORDERED: Fentanyl 100 MCG/2 ML VIAL ONE (18:23)
[2021-09-25] MEDS ORDERED: Sodium Chloride 0.9% 1,000 ML IV SCH ×2 (18:30)
[2021-09-25 20:58] LABS: SARS-CoV-2 NAA Rapid Test Not Detected (NotDetected)
[2021-09-25] MEDS: Atorvastatin Calcium 10 MG TAB PO SCH (22:32)
[2021-09-25] MEDS: Tamsulosin HCl 0.4 MG CAP PO SCH (22:33)
[2021-09-25] MEDS: HYDROcodone/Acetaminophen 5/325 mg Tablet PO PRN (22:33)
[2021-09-25] MEDS: Sodium Chloride 0.9% 1,000 ML IV SCH (22:54)
[2021-09-25] MEDS: rOPINIRole HCl 2 MG TAB PO SCH (22:55)
[2021-09-25 23:32] VITALS: BMI 33.5
[2021-09-26] MEDS: Sodium Chloride 0.9% 1,000 ML IV SCH ×4 (05:25→18:18)
[2021-09-26] MEDS: HYDROcodone/Acetaminophen 5/325 mg Tablet PO PRN ×3 (05:32→16:13)
[2021-09-26 06:05] LABS: #Eosinphils 0.1 thou/uL (0.0-0.7); #Lymphocytes 1.2 thou/uL (1.20-3.40); #Monocytes 0.5 thou/uL (0.11-0.59); #Neutrophils 3.8 thou/uL (1.40-6.50); %Basophils 0.3 % (0.0-1.0); %Eosinophils 2.2 % (0.0-10.0); %Lymphocytes 21.6 % (21.0-51.0); %Monocytes 8.9 % (0.0-10.0); %Neutrophils 66.9 % (42.0-75.0); Hemoglobin 10.2 g/dL (14.0-18.0); Mean Corpuscular HGB CONC 33.3 g/dL (32.0-36.0); Mean Corpuscular Hemoglobin 35.6 pg (27.0-31.0); Mean Platelet Volume 6.3 fL (7.4-10.4); Platelet Count 241 thou/uL (130-400); RBC Distribution Width 12.3 % (11.5-14.5); Red Blood Cell (RBC) Count 2.86 mill/uL (4.70-6.10); White Blood Cell (WBC) Count 5.6 thou/uL (4.8-10.8)
[2021-09-26 06:19] LABS: Anion Gap 13 mmol/L (10-20); BUN (Urea Nitrogen) 47 mg/dL (8.4-25.7); Calc. Creatinine Clearance 71 mL/min (70-130); Calcium 8.7 mg/dL (7.8-10.44); Carbon Dioxide 21 mmol/L (23-31); Chloride 105 mmol/L (98-107); Glucose 86 mg/dL (80-115); Potassium 4.4 mmol/L (3.5-5.1); Sodium 135 mmol/L (136-145)
[2021-09-26] MEDS ORDERED: FLU VACC QS2021-22(6MOS UP)/PF 60 MCG/0.5 ML SYRINGE IM ONE (09:00)
[2021-09-26] MEDS: Enoxaparin Sodium 30 MG/0.3 ML SYRINGE SC SCH (09:52)
[2021-09-26] MEDS: Clopidogrel Bisulfate 75 MG TAB PO SCH (09:53)
[2021-09-26] MEDS: Atorvastatin Calcium 10 MG TAB PO SCH (21:04)
[2021-09-26] MEDS: rOPINIRole HCl 2 MG TAB PO SCH (21:04)
[2021-09-26] MEDS: Acetaminophen 325 MG TAB PO PRN (21:04)
[2021-09-26] MEDS: Tamsulosin HCl 0.4 MG CAP PO SCH (21:04)
[2021-09-27] MEDS: Sodium Chloride 0.9% 1,000 ML IV SCH ×4 (01:11→10:41)
[2021-09-27] MEDS: HYDROcodone/Acetaminophen 5/325 mg Tablet PO PRN ×4 (02:23→20:27)
[2021-09-27] MEDS: Enoxaparin Sodium 30 MG/0.3 ML SYRINGE SC SCH (09:16)
[2021-09-27] MEDS: Clopidogrel Bisulfate 75 MG TAB PO SCH (09:16)
[2021-09-27] MEDS: Acetaminophen 325 MG TAB PO PRN (11:17)
[2021-09-27 14:14] LABS: Chloride 105 mmol/L (98-107); Potassium 4.4 mmol/L (3.5-5.1); Sodium 135 mmol/L (136-145)
[2021-09-27 14:15] LABS: Calcium 7.9 mg/dL (7.8-10.44); Glucose 88 mg/dL (80-115)
[2021-09-27 14:17] LABS: Anion Gap 9 mmol/L (10-20); Carbon Dioxide 25 mmol/L (23-31)
[2021-09-27 14:20] LABS: BUN (Urea Nitrogen) 20 mg/dL (8.4-25.7)
[2021-09-27 14:32] LABS: Calc. Creatinine Clearance 159 mL/min (70-130)
[2021-09-27] MEDS: Tamsulosin HCl 0.4 MG CAP PO SCH (20:27)
[2021-09-27] MEDS: rOPINIRole HCl 2 MG TAB PO SCH (20:28)
[2021-09-27] MEDS ORDERED: hydrALAZINE 20 MG/ML VIAL SLOW IVP PRN (20:29)
[2021-09-27] MEDS: Atorvastatin Calcium 10 MG TAB PO SCH (20:32)
[2021-09-28] MEDS: HYDROcodone/Acetaminophen 5/325 mg Tablet PO PRN ×2 (05:23→09:47)
[2021-09-28 06:15] LABS: Anion Gap 8 mmol/L (10-20); BUN (Urea Nitrogen) 12 mg/dL (8.4-25.7); Calc. Creatinine Clearance 174 mL/min (70-130); Calcium 8.5 mg/dL (7.8-10.44); Carbon Dioxide 29 mmol/L (23-31); Chloride 104 mmol/L (98-107); Glucose 83 mg/dL (80-115); Potassium 4.1 mmol/L (3.5-5.1); Sodium 137 mmol/L (136-145)
[2021-09-28] MEDS ORDERED: Enoxaparin Sodium 40 MG/0.4 ML SYRINGE SC SCH (09:00)
[2021-09-28] MEDS: Clopidogrel Bisulfate 75 MG TAB PO SCH (09:47)
[2021-09-28 12:22] VITALS: BP 151/70; TEMP 98.5
== END 2021-09-28 13:30 | DRG 641 ==
LOC: ERS 16:20 → MSONC 18:22
PROVIDERS: ADMIT Student in an Organized Health Care Education/Training Program; ATTEND Internal Medicine
DX: E86.0 Dehydration (principal); N17.9 Acute kidney failure, unspecified; Z20.822 Contact with and (suspected) exposure to COVID-19; G47.33 Obstructive sleep apnea (adult) (pediatric); I25.10 Atherosclerotic heart disease of native coronary artery without angina pectoris; E78.5 Hyperlipidemia, unspecified; I10 Essential (primary) hypertension; G62.9 Polyneuropathy, unspecified; I95.2 Hypotension due to drugs; T50.2X5A Adverse effect of carbonic-anhydrase inhibitors, benzothiadiazides and other diuretics, initial encounter; I45.10 Unspecified right bundle-branch block; Z91.041 Radiographic dye allergy status; Z88.1 Allergy status to other antibiotic agents; Z88.6 Allergy status to analgesic agent; Z88.8 Allergy status to other drugs, medicaments and biological substances
CPT/HCPCS: 36415; 70450; 71045; 80048; 80053; 83605; 83735; 84484; 85025; 87040; 93005; 94760; 96374; J1650; J3010; J7050; U0002; U0003; U0005

== ENCOUNTER 2023-01-08 09:30 | Emergency (ER) | payer MEDICARE, MEDICAID ==
[2023-01-08 10:29] LABS: #Eosinphils 0.1 thou/uL (0.0-0.7); #Monocytes 0.4 thou/uL (0.11-0.59); %Basophils 0.3 % (0.0-1.0); %Eosinophils 3.2 % (0.0-10.0); %Lymphocytes 25.4 % (21.0-51.0); %Neutrophils 58.5 % (42.0-75.0); Hemoglobin 11.6 g/dL (14.0-18.0); Mean Corpuscular HGB CONC 33.2 g/dL (32.0-36.0); Mean Corpuscular Hemoglobin 34.1 pg (27.0-31.0); Mean Corpuscular Volume 102.6 fl (78.0-98.0); Mean Platelet Volume 9.1 fL (7.4-10.4); Platelet Count 223 10x3/uL (130-400); RBC Distribution Width 12.6 % (11.5-14.5); White Blood Cell (WBC) Count 3.4 10x3/uL (4.8-10.8)
[2023-01-08 10:42] LABS: ALT (SGPT) 21 U/L (8-55); AST (SGOT) 16 U/L (5-34); Albumin 3.9 g/dL (3.4-4.8); Alkaline Phosphatase 90 U/L (40-110); Anion Gap 9 mmol/L (10-20); BUN (Urea Nitrogen) 22 mg/dL (8.4-25.7); Bilirubin, Total 0.5 mg/dL (0.2-1.2); Calc. Creatinine Clearance 0 mL/min (70-130); Carbon Dioxide 24 mmol/L (23-31); Chloride 104 mmol/L (98-107); Estimated GFR 100; Globulin 2.3 g/dL (2.4-3.5); Glucose 110 mg/dL (80-115); Potassium 3.8 mmol/L (3.5-5.1); Protein, Total 6.2 g/dL (5.8-8.1); Sodium 133 mmol/L (136-145)
[2023-01-08] MEDS ORDERED: Oxymetazoline HCl 0.05% (30 ML BOT) ONE (12:00)
[2023-01-08] MEDS ORDERED: Boostrix 0.5 ML (Tdap) VIAL (>/=7 yrs of age) ONE (12:07)
== END 2023-01-08 14:00 | disposition home or self-care (01) ==
LOC: ERS 09:30
DX: M54.9 Dorsalgia, unspecified (principal); R04.0 Epistaxis; I25.10 Atherosclerotic heart disease of native coronary artery without angina pectoris; E78.5 Hyperlipidemia, unspecified; I10 Essential (primary) hypertension; W18.30XA Fall on same level, unspecified, initial encounter; Z23 Encounter for immunization; Z79.82 Long term (current) use of aspirin; Z79.899 Other long term (current) drug therapy
CPT/HCPCS: 30901; 30903; 36415; 70450; 70486; 72125; 72128; 72131; 80053; 85025; 90471; 90715; 96374; 96375; J0360; J1885; J2270

== ENCOUNTER 2023-01-08 15:08 | Emergency (ER) | payer MEDICARE, MEDICAID ==
[2023-01-08] MEDS ORDERED: Acetaminophen/Codeine 30-300mg Tablet ONE (15:33)
[2023-01-08] MEDS ORDERED: Ketorolac Tromethamine 30 MG/ML VIAL ONE (15:33)
[2023-01-08] MEDS ORDERED: hydrALAZINE 20 MG/ML VIAL ONE (15:42)
[2023-01-08] MEDS ORDERED: Morphine 4 MG/ML VIAL ONE (18:38)
== END 2023-01-08 19:45 | disposition short-term general hospital (02) ==
LOC: ERS 15:08
DX: S00.83XA Contusion of other part of head, initial encounter (principal); R04.0 Epistaxis; R29.6 Repeated falls; I25.10 Atherosclerotic heart disease of native coronary artery without angina pectoris; E78.5 Hyperlipidemia, unspecified; I10 Essential (primary) hypertension
CPT/HCPCS: 30903; 96374; 96375; J0360; J1885; J2270